=== PATIENT | male | born 1950 | race Caucasian/White ===

== ENCOUNTER 2016-05-17 01:46 | Emergency (ER) | payer MEDICARE, OTHER ==
--- NOTE | 2016-05-17 03:12 | ER Document Report ---
ED General - General Chief Complaint: Fall Stated Complaint: FALL,HEAD PAIN Mode of Arrival: Medic Information source: Patient, Relative - spouse Notes: Patient presents to emergency department for status post fall. Patient reports that he was trying to get out of bed got his foot caught in the sheet, fell and hit his head on the dresser. at his side reports no change in LOC. Reports patient acting like himself. He denies fever vomiting diarrhea. He denies dizziness, denies cp. Patient does have a past medical history of diabetes stroke and [place] stage III kidney disease. TRAVEL OUTSIDE OF THE [place] IN LAST 30 DAYS: No - HPI Onset: Just prior to arrival Onset/Duration: Sudden Quality of pain: No pain Associated symptoms: None Exacerbated by: Denies Relieved by: Denies Similar symptoms previously: No Recently seen / treated by doctor: No - Related Data Allergies/Adverse Reactions: No Known Allergies Allergy (Verified 06/21/13 00:40) Past Medical History - General Information source: Patient - Social History Smoking Status: Former Smoker Cigarette use (# per day): No Frequency of alcohol use: Rare Drug Abuse: None Lives with: Family Family History: None, Reviewed & Not Pertinent Patient has suicidal ideation: No Patient has homicidal ideation: No - Past Medical History Cardiac Medical History: Reports: Hx Heart Attack - 2008, Hx Hypercholesterolemia, Hx Hypertension Pulmonary Medical History: Reports: Hx COPD Denies: Hx Tuberculosis Neurological Medical History: Reports: Hx Cerebrovascular Accident - x2 May 2011 , july 2009 Endocrine Medical History: Reports: Hx Diabetes Mellitus Type 2 Renal/ Medical History: Reports: Hx End Stage Renal Disease. Denies: Hx Peritoneal Dialysis GI Medical History: Reports: Hx Gastroesophageal Reflux Disease Psychiatric Medical History: Denies: Hx Depression Past Surgical History: Reports: Hx Appendectomy, Hx Cardiac Surgery - stent. Denies: Hx Pacemaker - Immunizations Hx Diphtheria, Pertussis, Tetanus Vaccination: Yes - 2008 Review of Systems - Review of Systems Notes: Review HPI for review of systems., All other systems negative Physical Exam - Vital signs Vitals: Temp Pulse Resp BP Pulse Ox 98.6 F 102 H 16 139/83 H 94 05/17/16 01:58 05/17/16 01:58 05/17/16 01:58 05/17/16 01:58 05/17/16 01:58 - General General appearance: Other - sleeping aroused easily In distress: None - HEENT Head: Abrasions - left forehead with swelling. No: Ingram's sign, [place]'s eyes Eyes: Normal Conjunctiva: Normal Extraocular movements intact: Yes Pupils: PERRL Ears: Normal External canal: Normal Tympanic membrane: Normal Mouth/Lips: Normal Neck: Normal - denies pain. No: Lymphadenopathy - Respiratory Respiratory status: No respiratory distress Chest status: Nontender Breath sounds: Normal Chest palpation: Normal - Cardiovascular Rhythm: Regular Heart sounds: Normal auscultation Murmur: No - Abdominal Inspection: Normal Distension: No distension Bowel sounds: Normal Tenderness: Nontender Organomegaly: No organomegaly Adult front & back diagram: 1 - swelling, abrasion, no active bleeding - Back Back: Normal - Extremities General upper extremity: Normal ROM General lower extremity: Normal ROM - Neurological Neuro grossly intact: Yes Cognition: Normal Orientation: AAOx4 [place] Coma Scale Eye Opening: Spontaneous [place] Coma Scale Verbal: Oriented Mckayla Coma Scale Motor: Obeys Commands Mckayla Coma Scale Total: 15 Speech: Normal Motor strength normal: LUE, RUE, LLE, RLE Sensory: Normal - Psychological Associated symptoms: Normal affect, Normal mood - Skin Skin Temperature: Warm Skin Moisture: Dry Skin Color: Normal Course - Re-evaluation Re-evalutation: 05/17/[address] javier, updated on CT results, labs. updated on labs , BUN/CR, GFR., worsening from previous labs in 2014. reports they have an appointment with his pcp on Sunday regarding his stage III kidney disease. She was given a copy of the labs done here. Pt is sleeping but aroused easily, no distress. He reports he feels fine. Instructed on care of abrasion, swelling, instructed on head injury. Patient and verbalized understand to all instructions. - Vital Signs Vital signs: Temp Pulse Resp BP Pulse Ox 98.6 F 102 H 20 155/86 H 94 05/17/16 01:58 05/17/16 01:58 05/17/16 04:01 05/17/16 04:01 05/17/16 04:01 - Laboratory Result Diagrams: 05/17/16 03:30 05/17/16 03:30 Laboratory results interpreted by me: 05/17/16 05/17/16 03:30 03:30 WBC 12.1 H RBC 4.29 L Hgb 12.9 L Hct 37.7 L RDW 14.1 H Seg Neutrophils % 80.0 H Lymphocytes % 8.4 L Absolute Neutrophils 9.6 H Potassium 5.1 H Carbon Dioxide 19 L BUN 33 H Creatinine 2.85 H Est GFR ( Amer) 27 L Est GFR (Non-Af Amer) 22 L Glucose 232 H - Diagnostic Test Radiology reviewed: Image reviewed, Reports reviewed - IMPRESSION: CHRONIC DEGENERATIVE CHANGES. NO ACUTE FINDINGS. IMPRESSION: NORMAL BRAIN CT WITHOUT CONTRAST Discharge - Discharge Clinical Impression: Head injury, Elevated blood pressure reading, Abrasion Condition: Stable Disposition: HOME, SELF-CARE Instructions: Head Injury Precautions ([facility]), Abrasions of the Face ([facility]) Additional Instructions: *You have been treated for a head injury, abrasion *Keep the abrasion clean, Monitor the site for signs of infection such as increasing pain, redness, swelling, warmth *Ice packs to the swelling *Follow up with your primary care as scheduled Sunday *Return to ED for signs of infection, worsening condition,concerns, changes, needs, altered mental status, concerns Forms: Elevated Blood Pressure
[2016-05-17 03:41] LABS: ABSOLUTE EOSINOPHILS # (AUTO) 0.1 10^3/uL (0.0-0.6); ABSOLUTE MONOCYTES (AUTO) 1.2 10^3/uL (0.1-1.4); ABSOLUTE NEUT (AUTO) 9.6 10^3/uL (1.7-8.2); BASOPHILS % (AUTO) 0.3 % (0-2); EOSINOPHILS % (AUTO) 1.2 % (0-6); HEMATOCRIT 37.7 % (37.9-51.0); HEMOGLOBIN 12.9 g/dL (13.5-17.0); LYMPHOCYTES % (AUTO) 8.4 % (13-45); MEAN CORPUSCULAR HGB CONC 34.1 g/dL (32.0-36.0); MEAN CORPUSCULAR VOLUME 88 fl (80-97); MONOCYTES % (AUTO) 10.1 % (3-13); RED BLOOD COUNT 4.29 10^6/uL (4.35-5.55); RED CELL DISTRIBUTION WIDTH 14.1 % (11.5-14.0); WHITE BLOOD COUNT 12.1 10^3/uL (4.0-10.5)
[2016-05-17 03:59] LABS: ALANINE AMINOTRANSFERASE 38 U/L (21-72); ALBUMIN 3.6 g/dL (3.5-5.0); ALKALINE PHOSPHATASE 84 U/L (38-126); ANION GAP 15 (5-19); ASPARTATE AMINO TRANSFERASE 35 U/L (17-59); BILIRUBIN,TOTAL 0.5 mg/dL (0.2-1.3); BLOOD UREA NITROGEN 33 mg/dL (7-20); CALCIUM 9.5 mg/dL (8.4-10.2); CARBON DIOXIDE 19 mmol/L (22-30); CHLORIDE 105 mmol/L (98-107); CREATININE RESULT 2.85 mg/dL (0.52-1.25); GLUCOSE 232 mg/dL (75-110); POTASSIUM 5.1 mmol/L (3.6-5.0); SODIUM 139.3 mmol/L (137-145); TOTAL PROTEIN 6.5 g/dL (6.3-8.2)
[2016-05-17 05:18] VITALS: BP 145/83
== END 2016-05-17 05:18 | disposition home or self-care (01) ==
LOC: ER 01:46
DX: S09.90XA Unspecified injury of head, initial encounter (principal); S00.81XA Abrasion of other part of head, initial encounter; W06.XXXA Fall from bed, initial encounter; Y92.009 Unspecified place in unspecified non-institutional (private) residence as the place of occurrence of the external cause; E11.22 Type 2 diabetes mellitus with diabetic chronic kidney disease; I12.9 Hypertensive chronic kidney disease with stage 1 through stage 4 chronic kidney disease, or unspecified chronic kidney disease; N18.3 Chronic kidney disease, stage 3 (moderate); E78.00 Pure hypercholesterolemia, unspecified; J44.9 Chronic obstructive pulmonary disease, unspecified; I25.2 Old myocardial infarction; Z87.891 Personal history of nicotine dependence; Z86.73 Personal history of transient ischemic attack (TIA), and cerebral infarction without residual deficits
CPT/HCPCS: 36415; 70450; 72125; 80053; 85025; 99284

== ENCOUNTER 2016-05-18 20:39 | Inpatient (IN) | payer MEDICARE, OTHER ==
--- NOTE | 2016-05-18 21:36 | ER Document Report ---
ED Medical Screen (RME) - General Stated Complaint: FALL/HEAD PAIN Notes: patient is a 66 year old male who presents emergency department after being seen on the morning of May 17 after a fall. He was evaluated with a head CT and neck CT which did not reveal any acute bleed or fracture. They were discharged home and told to return to the emergency department if he is not doing well. Patient presents with and daughter stating that he has been lethargic, sleeping constantly, weak, and decreased appetite. Its been difficulty for him to perform his baseline functions which are getting in/out of bed, going to the bathroom. and daughter states that they arent sure if he is worse since sunday AM when he was evaluated here because he slept the whole time but was easily aroused and cooperative PMH: [place] 2008 with stent x1, CVA in 2011, TIA ', CKD stage 3, DM Patient is resting in wheel chair but responds to vocal stimuli. when awake he is alert, oriented to person, place, time and events. Denies headache but feels like he's "out of it". At this time, in comparison with neuro exam performed on 05/17, his MS is the same. I have greeted and performed a rapid initial assessment of this patient. A comprehensive ED assessment and evaluation of the patient, analysis of test results and completion of the medical decision making process will be conducted by additional ED providers. TRAVEL OUTSIDE OF THE [place] IN LAST 30 DAYS: No - Related Data Allergies/Adverse Reactions: No Known Allergies Allergy (Verified 06/21/13 00:40) Past Medical History - Past Medical History Cardiac Medical History: Reports: Hx Heart Attack - 2008, Hx Hypercholesterolemia, Hx Hypertension Pulmonary Medical History: Reports: Hx COPD Denies: Hx Tuberculosis Neurological Medical History: Reports: Hx Cerebrovascular Accident - x2 May 2011 , july 2009 Endocrine Medical History: Reports: Hx Diabetes Mellitus Type 2 Renal/ Medical History: Reports: Hx End Stage Renal Disease. Denies: Hx Peritoneal Dialysis GI Medical History: Reports: Hx Gastroesophageal Reflux Disease Psychiatric Medical History: Denies: Hx Depression Past Surgical History: Reports: Hx Appendectomy, Hx Cardiac Surgery - stent. Denies: Hx Pacemaker - Immunizations Hx Diphtheria, Pertussis, Tetanus Vaccination: Yes - 2008 Physical Exam - Vital signs Vitals: Temp Pulse Resp BP Pulse Ox 99.3 F 101 H 20 149/75 H 95 05/18/16 21:11 05/18/16 21:11 05/18/16 21:11 05/18/16 21:11 05/18/16 21:11 Course - Vital Signs Vital signs: Temp Pulse Resp BP Pulse Ox 99.3 F 101 H 20 149/75 H 95 05/18/16 21:11 05/18/16 21:11 05/18/16 21:11 05/18/16 21:11 05/18/16 21:11
[2016-05-18 22:14] LABS: ABSOLUTE BASOPHILS # (AUTO) 0.1 10^3/uL (0.0-0.2); ABSOLUTE EOSINOPHILS # (AUTO) 0.1 10^3/uL (0.0-0.6); ABSOLUTE MONOCYTES (AUTO) 1.5 10^3/uL (0.1-1.4); BASOPHILS % (AUTO) 0.5 % (0-2); HEMATOCRIT 38.4 % (37.9-51.0); HEMOGLOBIN 12.9 g/dL (13.5-17.0); HGB HCT DIFFERENCE 0.3; LYMPHOCYTES % (AUTO) 6.8 % (13-45); MEAN CORPUSCULAR HEMOGLOBIN 29.6 pg (27.0-33.4); MEAN CORPUSCULAR HGB CONC 33.7 g/dL (32.0-36.0); MEAN CORPUSCULAR VOLUME 88 fl (80-97); MONOCYTES % (AUTO) 10.1 % (3-13); RED BLOOD COUNT 4.36 10^6/uL (4.35-5.55); SEGMENTED NEUTROPHILS % (AUTO) 81.6 % (42-78); WHITE BLOOD COUNT 14.7 10^3/uL (4.0-10.5)
[2016-05-18 22:40] LABS: ALANINE AMINOTRANSFERASE 42 U/L (21-72); ALBUMIN 3.8 g/dL (3.5-5.0); ALKALINE PHOSPHATASE 88 U/L (38-126); ANION GAP 16 (5-19); ASPARTATE AMINO TRANSFERASE 35 U/L (17-59); BILIRUBIN,TOTAL 0.6 mg/dL (0.2-1.3); BLOOD UREA NITROGEN 43 mg/dL (7-20); CARBON DIOXIDE 19 mmol/L (22-30); CHLORIDE 102 mmol/L (98-107); CREATININE RESULT 3.66 mg/dL (0.52-1.25); GLUCOSE 237 mg/dL (75-110); POTASSIUM 4.8 mmol/L (3.6-5.0); SODIUM 136.5 mmol/L (137-145)
[2016-05-18] MEDS ORDERED: NORMAL SALINE 1000 ML 1,000 ML IV PRN (22:50)
[2016-05-18 23:05] LABS: APPEARANCE,URINE SLIGHTLY-CLOUDY; BILIRUBIN,URINE NEGATIVE (NEGATIVE); GLUCOSE, URINE >=500 mg/dL (NEGATIVE); KETONES,URINE NEGATIVE (NEGATIVE); LEUKOCYTE ESTERASE,URINE NEGATIVE (NEGATIVE); NITRITE,URINE NEGATIVE (NEGATIVE); PROTEIN,URINE >=500 mg/dL (NEGATIVE); URINE SPECIFIC GRAVITY 1.018; UROBILINOGEN,URINE NEGATIVE mg/dL (<2.0)
--- NOTE | 2016-05-18 23:08 | ER Document Report ---
ED General - General Chief Complaint: Closed Head Injury Stated Complaint: FALL/HEAD PAIN Time seen by provider: 23:07 Mode of Arrival: Ambulatory Information source: Patient, Relative TRAVEL OUTSIDE OF THE [place] IN LAST 30 DAYS: No - HPI Patient complains to provider of: decreased by mouth intake, generalized weakness Onset: Yesterday Onset/Duration: Gradual, Persistent Quality of pain: No pain Associated symptoms: Nausea Exacerbated by: Denies Relieved by: Denies Similar symptoms previously: No Recently seen / treated by doctor: Yes Notes: Patient is a 66-year-old male who is visiting from the [facility], who presents to the emergency room with family members reporting that he has not been acting himself today, he is tired, with generalized weakness, has not had much to eat or drink throughout the day today, patient was seen in this emergency room yesterday after trip and fall resulting in a head injury, he was evaluated and discharged, family since he is just not been acting himself since , patient denies any complaints at time of evaluation, he denies any loss of consciousness with the head injury, no vomiting, no vision changes, he states that he opened a [employer] to drink this morning but when he was about to drink a he just had no desire to, and the thoughts of any other food makes him nauseated , he denies a fever, denies any abdominal pain - Related Data Allergies/Adverse Reactions: No Known Allergies Allergy (Verified 06/21/13 00:40) Past Medical History - General Information source: Patient - Social History Smoking Status: Former Smoker Chew tobacco use (# tins/day): No Frequency of alcohol use: Rare Drug Abuse: None Family History: None, Reviewed & Not Pertinent Patient has suicidal ideation: No Patient has homicidal ideation: No - Past Medical History Cardiac Medical History: Reports: Hx Heart Attack - 2009, Hx Hypercholesterolemia, Hx Hypertension Pulmonary Medical History: Reports: Hx COPD Denies: Hx Tuberculosis Neurological Medical History: Reports: Hx Cerebrovascular Accident - x2 May 2011 , july 2009 Endocrine Medical History: Reports: Hx Diabetes Mellitus Type 2 Renal/ Medical History: Reports: Hx End Stage Renal Disease. Denies: Hx Peritoneal Dialysis GI Medical History: Reports: Hx Gastroesophageal Reflux Disease Psychiatric Medical History: Denies: Hx Depression Past Surgical History: Reports: Hx Appendectomy, Hx Cardiac Surgery - stent. Denies: Hx Pacemaker - Immunizations Hx Diphtheria, Pertussis, Tetanus Vaccination: Yes - 2008 Review of Systems - Review of Systems Constitutional: See HPI EENT: No symptoms reported Cardiovascular: No symptoms reported Respiratory: No symptoms reported Gastrointestinal: See HPI Genitourinary: No symptoms reported Male Genitourinary: No symptoms reported Musculoskeletal: No symptoms reported Skin: No symptoms reported Hematologic/Lymphatic: No symptoms reported Neurological/Psychological: No symptoms reported -: Yes All other systems reviewed and negative Physical Exam - Vital signs Vitals: Temp Pulse Resp BP Pulse Ox 99.3 F 101 H 20 149/75 H 95 05/18/16 21:11 05/18/16 21:11 05/18/16 21:11 05/18/16 21:11 05/18/16 21:11 Interpretation: Normal - General General appearance: Appears well, Alert - HEENT Head: Normocephalic, Abrasions - Abrasions with superficial laceration to the left forehead Eyes: Normal Pupils: PERRL - Respiratory Respiratory status: No respiratory distress Chest status: Nontender Breath sounds: Normal Chest palpation: Normal - Cardiovascular Rhythm: Regular Heart sounds: Normal auscultation Murmur: No - Abdominal Inspection: Obese Distension: Distended Bowel sounds: Normal Tenderness: Nontender Organomegaly: No organomegaly - Back Back: Normal, Nontender - Extremities General upper extremity: Normal inspection, Nontender, Normal color, Normal ROM , Normal temperature General lower extremity: Normal inspection, Nontender, Normal color, Normal ROM , Normal temperature, Normal weight bearing. No: Carole's sign - Neurological Neuro grossly intact: Yes Cognition: Normal Orientation: AAOx4 [place] Coma Scale Eye Opening: Spontaneous [place] Coma Scale Verbal: Oriented Mckayla Coma Scale Motor: Obeys Commands [place] Coma Scale Total: 15 Speech: Normal Motor strength normal: LUE, RUE, LLE, RLE Sensory: Normal - Psychological Associated symptoms: Normal affect, Normal mood - Skin Skin Temperature: Warm Skin Moisture: Dry Skin Color: Normal Course - Re-evaluation Re-evalutation: 05/19/16 04:29 Patient with worsening renal function, symptoms consistent with dehydration, discussed with the hospitalist who agrees to admit as observation for further evaluation and treatment - Vital Signs Vital signs: Temp Pulse Resp BP Pulse Ox 99.3 F 101 H 20 149/75 H 95 05/18/16 21:11 05/18/16 21:11 05/18/16 21:11 05/18/16 21:11 05/18/16 21:11 - Laboratory Result Diagrams: 05/18/16 21:40 05/18/16 21:40 Laboratory results interpreted by me: 05/18/16 05/18/16 05/18/16 21:40 21:40 22:50 WBC 14.7 H Hgb 12.9 L Seg Neutrophils % 81.6 H Lymphocytes % 6.8 L Absolute Neutrophils 12.0 H Absolute Monocytes 1.5 H Sodium 136.5 L Carbon Dioxide 19 L BUN 43 H Creatinine 3.66 H Est GFR ( Amer) 20 L Est GFR (Non-Af Amer) 17 L Glucose 237 H Urine Protein >=500 H Urine Glucose (UA) >=500 H Urine Blood SMALL H Urine Ascorbic Acid 40 H - Transfer of Care Care transferred to following provider: Dr. Arroyo Discharge - Discharge Clinical Impression: Acute on chronic renal insufficiency, Dehydration Condition: Fair Disposition: ADMITTED OBSERVATION Admitting Provider: Hospitalist Unit Admitted: Telemetry
[2016-05-18 23:31] LABS: VENOUS BLOOD HCO3 21.2 mmol/L (20-32); VENOUS BLOOD PCO2 39.7 mmHg (35-63); VENOUS BLOOD PH 7.35 (7.30-7.42)
[2016-05-19] MEDS ORDERED: NORMAL SALINE 1000 ML 1,000 ML IV PRN (02:14)
[2016-05-19] MEDS ORDERED: DEXTROSE 50%-WATER 25 GM/50 ML DISP.SYRIN IV PRN ×2 (05:55)
[2016-05-19] MEDS ORDERED: GLUCAGON,HUMAN RECOMB 1 MG INJ IM PRN (05:55)
[2016-05-19] MEDS ORDERED: DEXTROSE 40% GEL 15 GM TUBE PO PRN ×2 (05:55)
[2016-05-19] MEDS ORDERED: IPRATROPIUM/ALBUTEROL 0.5-2.5 MG/3 ML AMPUL NEB PRN (05:57)
[2016-05-19] MEDS ORDERED: ACETAMINOPHEN 325 MG TABLET PO PRN (05:57)
--- NOTE | 2016-05-19 06:11 | PDOC H&P ---
History of Present Illness Admission Date/PCP: 05/19/16 03:44 Primary care provider in [facility] Dr. Bishop Palmer Rodgers Patient complains of: Not acting himself History of Present Illness: DENNIS SHAW is a 66 year old obese male with underlying insulin- dependent diabetes mellitus, stage III chronic kidney disease, hypertension, hyperlipidemia, COPD, mild reflux disease, known coronary artery disease, having undergone stent implant in 2008, and status post stroke 2, 2009 and 2011 , which has left him with mild right lower extremity paresthesias, who presents to the emergency room for evaluation of above complaint. Patient has been discussed with emergency room physician who evaluated the patient. Patient formerly lived in the area. Currently resides in [place], and came down to finalize closing of his home in the area. Fell and struck his head on the eighth. Was seen in the emergency room and discharged. Since that time he "has not been acting himself," per family report. More fatigued, with generalized weakness, along with primarily a poor appetite, for both liquids and solids. Attempting to eat any food, solids or liquids, makes him nauseated. However, no other specific complaints, including headache, chest or abdominal pain, nausea vomiting, fever chills, diarrhea or dysuria. According to emergency room physician, family commented that after he had received approximately a liter so of IV fluid this evening, he seemed "more like himself." Family have gone home. He is currently resting quietly, without specific complaint.. Laboratory results are listed in [employer] and are reviewed. X-ray summary results are listed below, with full report(s) reviewed. . EKG pending, as are cardiac enzymes. Social history/personal habits: . 2 children. Retired. Lives with . Former smoker. Rare alcohol. No use of illicit drugs. Allergies/adverse reactions NKDA. Home medications Home medications initially autopopulated into [employer] may not accurately reflect patient's true medications, dosages, and/or frequencies. Unfortunately, patient uncertain of medications/dosages/frequencies. Order has been entered for staff to contact family, outpatient physician, and/or pharmacy to more accurately determine medications, dosages, and frequencies and to contact physician when that has been accomplished. REVIEW OF SYSTEMS: Constitutional: No fever or chills. Eyes: Wears glasses. ENT: No swallowing problems or complaints. Partial hearing loss. Pulmonary: No current complaints. Cardiovascular: No current complaints, including chest pain. Gastrointestinal: No current complaints, including nausea or vomiting. Skin: No current complaints, including rashes. Hematologic: No unusual easy bruising or bleeding. Neurologic: Mild Chronic right lower extremity paresthesias, since 2 prior strokes. Musculoskeletal: No current complaints, including painful joints. Psychiatric: See History and Present Illness. Endocrine: No current complaints, including polyuria. Genitourinary: No current complaints, including dysuria. PHYSICAL EXAMINATION: 6 feet tall. 127.2 kg. BMI 38 kg/m. Pulse 94 and regular. 97% saturation on room air. Respirations are 16 and unlabored. Blood pressure 163/78. Temperature 99.3. Obese slightly disheveled otherwise well-nourished well-developed male appearing approximately his stated age. Pleasant awake alert and cooperative. No obvious distress other than perhaps mildly anxious. Skin is warm and dry. No grossly obvious evidence of rash in areas of skin examined. No subcutaneous nodules palpated. ENT: Hearing grossly normal Mildly hard of hearing to normal conversation. Tongue midline on protrusion pink and slightly tacky. No Ingram sign. Somewhat poor dentition involving his upper incisors. Eyes: No scleral icterus. Pupils equal and reactive to light at 4 mm. Stoy conjunctivae. No raccoon eyes. Neck is supple and nontender to gentle active range of motion and palpation. Midline trachea. No palpable thyroid nodule mass enlargement or tenderness. Lymphatic: No palpable cervical or clavicular nodes. Neck and lymphatic exams limited by patient body habitus. Psychiatric: Reasonable insight into acute and chronic medical issues. Oriented to time location and why here. Slightly odd affect at times. Lungs: Auscultation reveals clear and equal breath sounds bilaterally. No use of accessory respiratory muscles. Cardiovascular: Heart regular rate and rhythm, without gallop murmur or rub. No carotid or abdominal aortic bruits. No ankle or pedal edema. palpable dorsalis pedis pulses. Abdomen: soft, obese, nontender with positive bowel sounds. Unable to adequately evaluate abdomen for masses or organomegaly due to body habitus. Extremities: Feet are warm and dry. No calf tenderness to compression. No grossly obvious visual evidence of calf swelling. Gentle manipulation of upper and lower extremities fails to reveal any obvious evidence of injury or instability to involved major joints. Neurologic: Cranial Nerves II through XII are grossly intact. Light touch intact at face, upper and lower extremities, with exception of chronic right lower extremity decreased light touch sensation since 2 prior strokes, per patient. Motor function of major muscle groups upper and lower extremities 5 over 5 and symmetric. Patellar reflexes absent. Absent Babinski. Past Medical History Cardiac Medical History: Reports: Myocardial Infarction - 2009, Hyperlipidema, Hypertension Denies: DVT, Pulmonary Embolism Pulmonary Medical History: Reports: Chronic Obstructive Pulmonary Disease (COPD) Denies: Tuberculosis Neurological Medical History: Reports: Ischemic CVA - 2009, 2012; chronic right lower extremity paresthesia. Denies: Hemorrhagic CVA, Seizures Endocrine Medical History: Reports: Diabetes Mellitus Type 1 Denies: Hyperthyroidism, Hypothyroidism Renal/ Medical History: Reports: Chronic Kidney Disease GI Medical History: Reports: Gastroesophageal Reflux Disease Denies: Cirrhosis, Hepatitis, Peptic Ulcer Disease Musculoskeltal Medical History: Denies: Arthritis Skin Medical History: Reports: None Denies: Eczema, Psoriasis Psychiatric Medical History: Denies: Alcohol Dependency, Depression, General Anxiety Disorder, Substance Abuse, Tobacco Dependency Hematology: Denies: Other Infectious Medical History: Denies: Hepatitis B, Hepatitis C Past Surgical History Past Surgical History: Reports: Appendectomy, Coronary Stent - 2008 Social History Information Source: Patient, Emergency Med Personnel, [facility] Records Lives with: Spouse/Significant other Smoking Status: Former Smoker Frequency of Alcohol Use: Rare Hx Recreational Drug Use: No Hx Prescription Drug Abuse: No - Advance Directive Resuscitation Status: Full Code Surrogate healthcare decision maker:: Family History Family History: None, Reviewed & Not Pertinent Parental Family History Reviewed: Yes Children Family History Reviewed: Yes Sibling(s) Family History Reviewed.: Yes Medication/Allergy Home Medications: Amitriptyline HCl [Elavil 50 mg Tablet] 100 mg PO QHS 05/19/16 Amlodipine Besylate [Norvasc 5 mg Tablet] 5 mg PO QAM 05/19/16 Clopidogrel Bisulfate [Plavix 75 mg Tablet] 75 mg PO QAM 05/19/16 Exenatide Microspheres [Bydureon Pen] 2 mg SQ WE 05/19/16 Gabapentin [Neurontin 100 mg Capsule] 100 mg PO BID@0800,1200 05/19/16 Glimepiride [Amaryl 4 mg Tablet] 4 mg PO Q12 05/19/16 Insulin Aspart [Novolog Flexpen] 10 units SQ BID 05/19/16 Insulin Glargine,Hum.rec.anlog [Lantus Solostar] 50 units SQ BID 05/19/16 Pantoprazole Sodium [Protonix] 40 mg PO ACSUPPER 05/19/16 RX: Losartan Potassium [Cozaar 100 mg Tablet] 100 mg PO DAILY 05/19/16 Simvastatin [Zocor 80 mg Tablet] 80 mg PO QHS 05/19/16 Tamsulosin HCl [Flomax 0.4 mg Cap.sr] 0.4 mg PO PCSUPPER 05/19/16 Allergies/Adverse Reactions: No Known Allergies Allergy (Verified 06/21/13 00:40) Physical Exam Vital Signs: Temp Pulse Resp BP Pulse Ox 98.8 F 95 22 H 163/78 H 97 05/19/16 05:12 05/19/16 05:12 05/19/16 05:34 05/19/16 05:34 05/19/16 05:34 Intake & Output 05/18/16 05/19/16 05/20/16 00:59 00:59 00:59 Weight 127.2 kg Results Impressions: Head CT 05/18/16 22:08 IMPRESSION: MILD CHRONIC CHANGES OF ATROPHY AND MICROVASCULAR ISCHEMIA. NO ACUTE PROCESS. Assessment & Plan - Diagnosis (1) Acute on chronic renal insufficiency Is this a current diagnosis for this admission?: YesPlan: Suspect prerenal, since patient admittedly has been eating or drinking little over the past 36 hours or so. IV fluids. Follow-up chemistry. I have strongly encouraged patient not to get out of bed without notifying staff , to avoid a fall with injury. Knee high SCDs for DVT prophylaxis, along with subcutaneous heparin. Impression and plans were discussed with patient, who concurs. Time spent in evaluation and management of patient: 58 minutes. (2) Decreased appetite Is this a current diagnosis for this admission?: YesPlan: Patient states he feels his appetite is returning gradually and is hungry at the present time. (3) Head injury Qualifiers: Encounter type: initial encounter Qualified Code(s): S09.90XA - Unspecified injury of head, initial encounter Is this a current diagnosis for this admission?: YesPlan: Status post fall on the eighth of this month. CT of brain without contrast not overly remarkable. Report noted. (4) Leukocytosis Qualifiers: Leukocytosis type: unspecified Qualified Code(s): D72.829 - Elevated white blood cell count, unspecified Is this a current diagnosis for this admission?: YesPlan: No obvious source of infection. Will repeat CBC with differential. (5) Diabetes mellitus type 1 Qualifiers: Diabetes mellitus complication status: without complication Qualified Code(s): E10.9 - Type 1 diabetes mellitus without complications Is this a current diagnosis for this admission?: YesPlan: Diabetic cardiac prerenal diet. Accu-Cheks with appropriate sliding scale coverage.Resume home medications as appropriate once these have been determined and reviewed. (6) HTN (hypertension) Qualifiers: Hypertension type: essential hypertension Qualified Code(s): I10 - Essential (primary) hypertension Is this a current diagnosis for this admission?: YesPlan: Resume home medications as appropriate once these have been determined and reviewed.
[2016-05-19 06:19] LABS: ADD ON TESTING BLD IN LAB ACKNOWLEDGE
[2016-05-19 06:30] LABS: MAGNESIUM 2.1 mg/dL (1.6-2.3)
[2016-05-19 06:32] LABS: ALCOHOL < 10 mg/dL (NONE DETECTED)
[2016-05-19 06:56] LABS: ABSOLUTE EOSINOPHILS # (AUTO) 0.2 10^3/uL (0.0-0.6); ABSOLUTE LYMPHOCYTES (AUTO) 0.8 10^3/uL (0.5-4.7); ABSOLUTE MONOCYTES (AUTO) 1.2 10^3/uL (0.1-1.4); ABSOLUTE NEUT (AUTO) 9.7 10^3/uL (1.7-8.2); BASOPHILS % (AUTO) 0.1 % (0-2); EOSINOPHILS % (AUTO) 1.3 % (0-6); HEMATOCRIT 36.2 % (37.9-51.0); HEMOGLOBIN 12.4 g/dL (13.5-17.0); LYMPHOCYTES % (AUTO) 6.9 % (13-45); MEAN CORPUSCULAR HEMOGLOBIN 30.1 pg (27.0-33.4); MEAN CORPUSCULAR HGB CONC 34.3 g/dL (32.0-36.0); MEAN CORPUSCULAR VOLUME 88 fl (80-97); MONOCYTES % (AUTO) 10.1 % (3-13); RED BLOOD COUNT 4.13 10^6/uL (4.35-5.55); SEGMENTED NEUTROPHILS % (AUTO) 81.6 % (42-78); WHITE BLOOD COUNT 11.9 10^3/uL (4.0-10.5)
[2016-05-19 07:12] LABS: ANION GAP 11 (5-19); BLOOD UREA NITROGEN 43 mg/dL (7-20); CALCIUM 8.6 mg/dL (8.4-10.2); CARBON DIOXIDE 20 mmol/L (22-30); CHLORIDE 106 mmol/L (98-107); CREATINE KINASE 430 U/L (55-170); CREATININE RESULT 3.59 mg/dL (0.52-1.25); GLUCOSE 215 mg/dL (75-110); POTASSIUM 4.4 mmol/L (3.6-5.0); SODIUM 136.7 mmol/L (137-145)
[2016-05-19 07:23] LABS: CREATINE KINASE MB 2.84 ng/mL (<4.55)
[2016-05-19 07:25] LABS: TROPONIN I 0.612 ng/mL
[2016-05-19 09:11] LABS: URINE BARBITURATES SCREEN NEGATIVE; URINE METHADONE SCREEN NEGATIVE; URINE OPIATES LOW NEGATIVE; URINE PHENCYCLIDINE SCREEN NEGATIVE
[2016-05-19] MEDS: NORMAL SALINE 1000 ML 1,000 ML IV PRN ×2 (11:03→18:13)
[2016-05-19] MEDS: ASPIRIN 81 MG TABLET, ENT COATED PO SCH (11:04)
[2016-05-19] MEDS: METOPROLOL TARTRATE 100 MG TABLET PO SCH ×2 (11:05→22:01)
[2016-05-19] MEDS: HEPARIN SOD (PORCINE) 5,000 UNIT/ML 1 ML SYRINGE SUBCUT SCH ×2 (11:08→22:02)
[2016-05-19] MEDS: INSULIN LISPRO 100 UNIT/ML 3 ML VIAL SUBCUT PRN ×2 (11:08→17:59)
[2016-05-19] MEDS: CLOPIDOGREL BISULFATE 75 MG TABLET PO SCH (11:09)
[2016-05-19] MEDS: DOCUSATE SODIUM 100 MG CAPSULE PO SCH ×2 (11:10→18:12)
[2016-05-19 11:50] LABS: CREATINE KINASE MB 2.71 ng/mL (<4.55)
[2016-05-19 11:56] LABS: TROPONIN I 0.53 ng/mL
[2016-05-19 16:45] LABS: CREATINE KINASE MB 2.93 ng/mL (<4.55); TROPONIN I 0.882 ng/mL
--- NOTE | 2016-05-19 19:34 | EKG REPORT ---
SEVERITY:- ABNORMAL ECG - SINUS RHYTHM ABNORMAL T, CONSIDER ISCHEMIA, LATERAL LEADS : Confirmed by: Lizette Wadsworth 19-May-2016 19:34:13
--- NOTE | 2016-05-19 19:36 | EKG REPORT ---
SEVERITY:- ABNORMAL ECG - A-FLUTTER/FIBRILLATION VS SINUS WITH BASELINE ARTIFACTS, REC REPEAT EKG ABNRM R PROG, CONSIDER ASMI OR LEAD PLACEMENT ABNORMAL T, CONSIDER ISCHEMIA, LATERAL LEADS : Confirmed by: Lizette Wadsworth 19-May-2016 19:35:09
[2016-05-19 20:17] LABS: CREATINE KINASE MB 2.96 ng/mL (<4.55); TROPONIN I 0.953 ng/mL
[2016-05-20 00:14] LABS: CREATINE KINASE MB 2.8 ng/mL (<4.55); TROPONIN I 0.837 ng/mL
--- NOTE | 2016-05-20 00:48 | CONSULTATION REPORT E ---
Consultation Report NAME: DENNIS SHAW : 1950 AGE: 66Y DATE: 05/19/2016 333 A TO: TOMA KAY M.D. FROM: ANGE BAUTISTA M.D. Requesting Physician REASON FOR CONSULTATION: Elevated troponin I. HISTORY OF PRESENT ILLNESS: The patient is a 66-year-old obese male with history of insulin-dependent diabetes mellitus type 2, with stage-3 chronic kidney disease as baseline, hypertension, hyperlipidemia, COPD, GERD, no history of coronary artery disease, history of NH and history of stent in unknown vessel and history of CVAs x2, which has left him with a gait imbalance. He was seen on the emergency room on 05/17/2016 after the patient's leg got caught on the sheets of his bed and he fell down and hit his head and had a head injury. The workup was negative including a CT scan of the head and the patient was sent home. Since then the patient has not been acting himself as per the . He feels more fatigued, has more generalized weakness along with poor appetite and drinking less amount of fluids. He feels very nauseated eating any food or drinking water. He denies any chest pain or discomfort. There are no palpitations. There is no PND or orthopnea. There is no increased leg edema. The patient has chronic kidney disease stage 3, now the GFR is reduced further and the GFR shows that the patient is now chronic kidney stage 4, and some of his symptoms of nausea and decreased appetite may be related to this [id number] renal failure. The patient has no prior history of arrhythmia. There is one EKG which is read as atrial flutter with a controlled ventricular response but I think it is sinus rhythm with artifact; I do not believe it is atrial flutter. The patient denies any chest pain or discomfort or any sensation in the chest which could be conceived as possibly angina or anginal equivalent but his troponin I is trending up. He denies any palpitations or fast rapid heartbeat. This is confirmed by the who gives most of the history since the patient is very hard of hearing. The patient after hydration is now back to his usual self although his gait is still unsteady as per the . The patient formerly lived in this area but now has resettled in [place] and has come back to sell his house at which time all these things happened. PAST MEDICAL HISTORY: Positive for history of coronary artery disease, history of NH, history of stent placement on unknown vessel. The thinks it is the arteries in the back of heart, most likely right coronary artery. Since then he has not had any anginal symptoms. He also has a hypertension. He has a history of diabetes mellitus type 2 insulin-dependent. He also has chronic kidney disease stage 3 which has now progressed to stage 4. There is no hypothyroidism or hyperthyroidism. He has a past history of CVAs x2, which as per the said that the patient had confused and had gait problems, and he still has problems with his gait and has falls off and on. There is no history of anxiety or depression. He has a history of GERD. He has no collagen vascular disease. He has no asthma or COPD and there is no sleep apnea. ALLERGIES: No known allergies. FAMILY HISTORY: Positive for coronary artery disease and hypertension. SOCIAL HISTORY: The patient is a former smoker and quit smoking a long time ago but he had a heart attack in 2007. CODE STATUS: The patient is FULL CODE. The patient's is his surrogate healthcare decision maker. MEDICATIONS: 1. Tylenol 650 mg p.o. q.4 h. p.r.n. 2. Aspirin 81 mg p.o. daily. 3. Plavix 75 mg p.o. daily. 4. Glucose 40% gel, 15 gm p.o. p.r.n. and 30 gm p.o. p.r.n. hypoglycemia. 5. Hypoglycemic precautions with dextrose 50% 12.5 mg IV and 25 gm IV p.r.n. hypoglycemia. 6. Colace 100 mg p.o. b.i.d. 7. Glucagon 1 mg IM p.r.n. 8. Heparin 5000 units subcutaneously q.12 h. 9. Normal saline intravenous at 150 mL/hr. 10. Accu-Cheks before meals t.i.d. and at bedtime with sliding scale insulin coverage. 11. Ipratropium/albuterol sulfate 3 mL nebulizer treatment q.4 h. p.r.n. 12. Metoprolol tartrate 100 mg p.o. q.12 h. At home along with the current medications, he was also on gabapentin 100 mg p.o. daily and also he was on amlodipine 5 mg tablet daily. He is also on amitriptyline 100 mg p.o. at bedtime and Flomax at home, 0.4 mg daily at night. REVIEW OF SYSTEMS: CARDIOVASCULAR: Denies any fever, chills or rigors. Had recent head injury and some recent altered mental status in spite of negative [employer] workup. Questionable whether this was a TIA or a CVA. HEENT: Eyes: No history of amblyopia or diplopia. No history of amaurosis fugax. Ears: The patient is hard of hearing. There are no recurrent ear infections. There is no vertigo. Nose: No history of hay fever, no history of nosebleeds. No history of nasal polyps. Mouth: No history of altered taste sensation, no history of ulcers in the mouth, no bleeding from the gums. Throat: No odynophagia or dysphagia. No recurrent sore throats. SKIN: No pruritus. No psoriasis. No yellowish discoloration of the skin. NECK: No history of goiter. No history of neck pain or swelling in the neck. LUNGS: No history of wheezing. No history of cough or sputum production. No history of asthma or COPD. No history of sleep apnea. No history of pulmonary embolism. No history of DVT. No history of pleuritic chest pain. No history of hemoptysis. CARDIAC: No prior history of congestive heart failure. No prior history of atrial fibrillation or flutter. No history of ventricular arrhythmias. No history of syncope. The patient denies any PND or orthopnea this admission or prior. There are no palpitations. The patient has a history of coronary artery disease, history of NH in 2007 and possibly had a stent to the right coronary artery. Since then the patient states and the corroborates that the patient has had not any anginal symptoms. There is no history of congestive heart failure. There is no syncope. GASTROINTESTINAL: History of GERD present. No history of fatty food intolerance. No history of abdominal pain. No history of altered bowel movements. No history of hematemesis or melena or hematochezia. RENAL: History of chronic kidney disease stage 3, now with the patient not eating well and drinking well has progressed to stage 4. There are no symptoms of UTI and no symptoms of hematuria, polyuria or dysuria. No symptoms of enlarged prostate. Denies arthritis or collagen vascular disease. ENDOCRINE: History of diabetes mellitus with diabetic neuropathy and also diabetic nephropathy. No history of retinopathy. No history of polydipsia or polyuria. No history of heat or cold intolerance or history of thyroid disease. CENTRAL NERVOUS SYSTEM: Past history of CVA x2 which has left him with a gait imbalance. The patient states the symptoms of CVA both times with confusion and disorientation and the patient not acting like himself, as he had these symptoms presently. There is no history of sleep apnea. No history of headaches, migraines or seizures. PSYCHIATRIC: No history of anxiety or depression. No history of suicidal ideation. VASCULAR: No history of calf or buttock claudication. No history of DVT. HEMATOLOGICAL: No history of anemia. No history of bleeding diathesis and no history of clotting disorders. The rest of the review of systems is positive for history of hypertension, which is well controlled as per the . METABOLIC: The patient has a history of moderate obesity. He also has a history of enlarged prostate and symptoms controlled with the current medication. He also has hyperlipidemia. PAST SURGICAL HISTORY: Positive for cardiac catheterization and stent placement. No other surgeries done. PHYSICAL EXAMINATION: GENERAL: Patient is moderately obese in no acute distress. The patient denies any chest pain or discomfort. There is no PND or orthopnea. VITAL SIGNS: The patient is afebrile with a temperature of 98.8 degrees Fahrenheit. Pulse is 97 beats per minute. His blood pressure is elevated at 160/110, respirations are 20 per minute, and 02 sats are 97% on room air. HEENT: Head is atraumatic, normocephalic. Eyes: Pupils are equal, round, regular, reactive to light and accommodation. Extraocular movements are normal. There is no conjunctival pallor. There is no scleral icterus. Ears: Tympanic membranes are intact. External auditory canals are clear. Nose: There is no deviated nasal septum. There is no inflammation of the nasal mucous membranes. Mouth: Mucous membranes of the mouth are moist. Tongue is moist. There are no ulcers. There is no bleeding from the gums. Throat: There is no redness of the oropharynx. There is no exudate. SKIN: There are no skin rashes. There is no petechia or ecchymosis. NECK: Supple. There is no JVD. Carotids are equal. There is no bruit. There is no goiter. There is no lymphadenopathy. Trachea is central. LUNGS: Clear to auscultation and percussion. HEART: S1 and S2 are heard. There is no S3 gallop. There is no S4 gallop. There is a systolic murmur in the left sternal border and the apex. There is no rub. ABDOMEN: Soft, obese, nontender. There is no hepatosplenomegaly. Bowel sounds are well heard. EXTREMITIES: Femorals are diminished. There are no femoral bruits. Leg pulses are diminished. There is no pedal edema. There is no DVT or cellulitis. There is no cyanosis or clubbing. There is no calf tenderness. CENTRAL NERVOUS SYSTEM: The patient at present seems to be conscious and oriented x3 with no focal deficits except he does have some weakness he says in his lower extremities, but the strength seems to be symmetrical and equal on both sides upper and lower extremities. PSYCHIATRIC: The patient's judgment and insight are intact. His affect is normal. DIAGNOSTIC TEST RESULTS: The patient's head CT shows that the ventricles are prominent. There is no hemorrhage, no evidence of an acute infarction. The patient's initial EKG read by the computer as atrial flutter with ventricular response of 96 but looks more like this is an artifact because there are definite P-waves seen in other leads. There is T-wave inversion suggestive of lateral wall ischemia. There are no old EKGs available. His EKG done today shows sinus rhythm, abnormal T-waves, consider lateral wall ischemia. His white count is 11,900, hemoglobin is 12.4, hematocrit is 26.2, and platelet count is 179,000. The patient's troponin I initially was 0.612 and came down to 0.530 and subsequently went up to 0.882 and then 0.953. Although CPK is elevated, CPK-MBS are negative. The patient's sodium is 136.7, potassium 4.4, chloride 106, CO2 20, BUN 43, creatinine 3.59, GFR is reduced at 17 mL, which is chronic kidney disease stage 4 and, hence, progressed from stage 3. His glucose is 215, his calcium is 8.6. His TSH is 1.05. The patient's serum alcohol is less than 10. His urine marijuana, urine cocaine, urine benzodiazepines, urine amphetamine, urine phencyclidine, urine barbiturates, urine methadone, and urine opiate screens are all negative in the urine. IMPRESSION: 1. Pxcic-nw-rpzuhbi kidney disease most likely secondary to the patient's inadequate p.o. intake of food and fluids. 2. Confusion and altered mental status secondary to renal failure versus secondary to recurrence of transient ischemic attack, now seems to have resolved. 3. Elevated troponin I most likely secondary to acute renal failure and possibly TIA. No definite evidence of non-ST elevation NH but the patient does have an abnormal T inversion in lateral leads. No old EKGs available at present. 4. Doubt atrial flutter, most likely artifact. 5. Coronary artery disease, history of myocardial infarction, history of stent, no anginal symptoms. 6. Hypertension, accelerated, uncontrolled. 7. Diabetes mellitus type 2, insulin-requiring with neuropathy and chronic kidney disease. 8. Chronic kidney disease at present stage 4, baseline is stage 3. 9. History of cerebrovascular accident x2 with gait imbalance. 10. History of fall and head injury on 05/17/2016. 11. Hyperlipidemia. 12. History of enlarged prostate. 13. Gastroesophageal reflux disease. RECOMMENDATIONS: Would recommend trending the troponin I and repeating EKG. Will try to get an old EKG from earlier admission here. Also will restart the patient's amlodipine at 5 mg p.o. q.12 h. and also add isosorbide mononitrate at 30 mg p.o. daily. Will check an echocardiogram later. Will follow with you. Discussed with the patient and patient's . NOTE: Fifty minutes spent on this patient including trying to review his earlier admission to the ER and also discussions after reviewing the patient's medications, ordering new medications, and also discussions with the hospitalist taking care of the patient and also the nurse taking care of the patient. Note: More than 50% of the time was spent on direct patient care. Thanking you. DICTATING PHYSICIAN: TOMA KAY M.D. [id number] PHY#: [id number] ID: [id number] JOB#: [id number] ACCT: [id number] cc:TOMA KAY M.D. >
[2016-05-20 05:33] LABS: HEMATOCRIT 36.6 % (37.9-51.0); HEMOGLOBIN 12.3 g/dL (13.5-17.0); HGB HCT DIFFERENCE 0.3; MEAN CORPUSCULAR HGB CONC 33.7 g/dL (32.0-36.0); MEAN CORPUSCULAR VOLUME 89 fl (80-97); RED BLOOD COUNT 4.11 10^6/uL (4.35-5.55); RED CELL DISTRIBUTION WIDTH 14.2 % (11.5-14.0); WHITE BLOOD COUNT 10.5 10^3/uL (4.0-10.5)
[2016-05-20 05:47] LABS: ANION GAP 12 (5-19); BLOOD UREA NITROGEN 46 mg/dL (7-20); CALCIUM 8.6 mg/dL (8.4-10.2); CARBON DIOXIDE 18 mmol/L (22-30); CHLORIDE 109 mmol/L (98-107); GLUCOSE 151 mg/dL (75-110); POTASSIUM 4.9 mmol/L (3.6-5.0); SODIUM 139.1 mmol/L (137-145)
[2016-05-20] MEDS: HEPARIN SOD (PORCINE) 5,000 UNIT/ML 1 ML SYRINGE SUBCUT SCH ×2 (09:43→22:41)
[2016-05-20] MEDS: DOCUSATE SODIUM 100 MG CAPSULE PO SCH ×2 (09:43→18:17)
[2016-05-20] MEDS: ASPIRIN 81 MG TABLET, ENT COATED PO SCH (09:43)
[2016-05-20] MEDS: CLOPIDOGREL BISULFATE 75 MG TABLET PO SCH (09:43)
[2016-05-20] MEDS: METOPROLOL TARTRATE 100 MG TABLET PO SCH ×2 (09:43→22:35)
--- NOTE | 2016-05-20 10:50 | EKG REPORT ---
SEVERITY:- ABNORMAL ECG - SINUS RHYTHM CONSIDER ANTEROSEPTAL INFARCT NONSPECIFIC T ABNORMALITIES, LATERAL LEADS : Confirmed by: Lizette Wadsworth 20-May-2016 10:48:44
--- NOTE | 2016-05-20 10:50 | EKG REPORT ---
SEVERITY:- ABNORMAL ECG - SINUS RHYTHM NONSPECIFIC T ABNORMALITIES, LATERAL LEADS : Confirmed by: Lizette Wadsworth 20-May-2016 10:48:28
--- NOTE | 2016-05-20 14:15 | PDOC PROGRESS REPORT ---
Subjective Progress Note for:: 05/20/16 Subjective:: Patient is feeling much better. Patient has no chest pain at all. No nausea or vomiting. No chills or fever. No diarrhea. Denies feeling dizzy. No headache, or double visions. No history of focal weakness, slurring of speech, or swallowing difficulty that resolve spontaneously. Physical Exam Vital Signs: Temp Pulse Resp BP Pulse Ox 99.0 F 84 22 H 161/77 H 93 05/20/16 11:51 05/20/16 11:51 05/20/16 11:51 05/20/16 11:51 05/20/16 11:51 Intake & Output 05/19/16 05/20/16 05/21/16 06:59 06:59 07:59 Intake Total 1443 Balance 1443 Weight 121.4 kg General appearance: PRESENT: no acute distress, cooperative Head exam: PRESENT: normocephalic, other - Ecchymosis noted on the forehead left side Eye exam: PRESENT: EOMI Mouth exam: PRESENT: moist, neck supple Neck exam: ABSENT: JVD Respiratory exam: PRESENT: clear to auscultation audie Cardiovascular exam: PRESENT: RRR. ABSENT: gallop GI/Abdominal exam: PRESENT: normal bowel sounds, soft. ABSENT: distended - Obese, tenderness Extremities exam: ABSENT: pedal edema Neurological exam: PRESENT: alert, awake, oriented to situation Skin exam: PRESENT: dry, warm. ABSENT: cyanosis Results Laboratory Results: 05/20/16 04:49 05/20/16 04:49 05/20/16 05/20/16 04:49 04:49 WBC 10.5 RBC 4.11 L Hgb 12.3 L Hct 36.6 L MCV 89 MCH 30.0 MCHC 33.7 RDW 14.2 H Plt Count 169 Sodium 139.1 Potassium 4.9 Chloride 109 H Carbon Dioxide 18 L Anion Gap 12 BUN 46 H Creatinine 3.40 H Est GFR ( Amer) 22 L Est GFR (Non-Af Amer) 18 L Glucose 151 H Calcium 8.6 05/19/16 05/19/16 05/19/16 11:04 11:04 16:00 Creatine Kinase 442 H 313 H CK-MB (CK-2) 2.71 Troponin I 0.530 05/19/16 05/19/16 05/19/16 16:00 19:25 19:25 Creatine Kinase 373 H CK-MB (CK-2) 2.93 2.96 Troponin I 0.882 0.953 05/19/16 05/19/16 05/20/16 23:26 23:26 10:47 Creatine Kinase 364 H CK-MB (CK-2) 2.80 Troponin I 0.837 0.538 Impressions: Head CT 05/18/16 22:08 IMPRESSION: MILD CHRONIC CHANGES OF ATROPHY AND MICROVASCULAR ISCHEMIA. NO ACUTE PROCESS. Assessment & Plan - Diagnosis (1) Acute worsening of stage 3 chronic kidney disease Is this a current diagnosis for this admission?: Yes (2) Leukocytosis Qualifiers: Leukocytosis type: unspecified Qualified Code(s): D72.829 - Elevated white blood cell count, unspecified Is this a current diagnosis for this admission?: Yes (3) Elevated troponin Is this a current diagnosis for this admission?: Yes (4) Diabetes mellitus type 1 Qualifiers: Diabetes mellitus complication status: without complication Qualified Code(s): E10.9 - Type 1 diabetes mellitus without complications Is this a current diagnosis for this admission?: Yes (5) HTN (hypertension) Qualifiers: Hypertension type: essential hypertension Qualified Code(s): I10 - Essential (primary) hypertension Is this a current diagnosis for this admission?: Yes (6) COPD (chronic obstructive pulmonary disease) Qualifiers: COPD type: unspecified COPD Qualified Code(s): J44.9 - Chronic obstructive pulmonary disease, unspecified Is this a current diagnosis for this admission?: Yes (7) Coronary artery disease Qualifiers: Coronary Disease-Associated Artery/Lesion type: [place] artery [place] vs. transplanted heart: [place] heart Associated angina: without angina Qualified Code(s): I25.10 - Atherosclerotic heart disease of [place] coronary artery without angina pectoris Is this a current diagnosis for this admission?: Yes (8) Hyperlipidemia Qualifiers: Hyperlipidemia type: unspecified Qualified Code(s): E78.5 - Hyperlipidemia, unspecified Is this a current diagnosis for this admission?: Yes (9) GERD (gastroesophageal reflux disease) Qualifiers: Esophagitis presence: without esophagitis Qualified Code(s): K21.9 - Gastro-esophageal reflux disease without esophagitis Is this a current diagnosis for this admission?: Yes - Time Time Spent with patient: 25-34 minutes - Plan Summary Plan Summary: We are going to resume the patient's antihypertensive medications. We will hold the ARB however. Continue IV hydration and monitor creatinine. Patient denies any symptoms of stroke prior to the fall. Continue supportive care.
[2016-05-20] MEDS ORDERED: FUROSEMIDE INJ/PF 100 MG/10 ML SDV ONE (17:38)
[2016-05-20] MEDS ORDERED: FUROSEMIDE INJ/PF 40 MG/4 ML SDV IV ONE (17:38)
[2016-05-20] MEDS ORDERED: LEVALBUTEROL HCL NEB 1.25 MG/3 ML AMPUL NEB ONE (17:39)
[2016-05-20] MEDS ORDERED: IPRATROPIUM BROMIDE 0.02% NEB 0.5 MG/2.5 ML AMPUL NEB ONE (17:40)
[2016-05-20] MEDS ORDERED: LEVALBUTEROL HCL NEB 1.25 MG/3 ML AMPUL NEB PRN (17:42)
[2016-05-20] MEDS: TAMSULOSIN HCL 0.4 MG CAP.SR.24H PO SCH (18:17)
[2016-05-20] MEDS ORDERED: NORMAL SALINE 1000 ML 1,000 ML IV PRN (18:17)
--- NOTE | 2016-05-20 19:13 | PROGRESS NOTE E ---
Progress Note NAME: DENNIS SHAW : 1950 AGE: 66Y DATE: 05/20/2016 ROOM: 333 SUBJECTIVE: Note that the patient denies any chest pain or discomfort, but as per the and also in talking the patient, he is slightly confused. He is oriented to person but not oriented to place or time. There is no arrhythmia seen on the monitor. There is no shortness of breath. There is no PND or orthopnea. There is no leg edema. There is no arrhythmia seen on the monitor. OBJECTIVE: GENERAL: On examination, the patient is in no acute distress. He is moderately obese, in no acute distress. VITAL SIGNS: He has a low-grade temperature of 99 degrees Fahrenheit. Pulse is 84 beats per minute. Blood pressure is 161/77, and respirations are 22 per minute. O2 saturations are 93% on room air. HEAD: Atraumatic/normocephalic. EYES: Pupils are equal, round, regular, reactive to light and accommodation. Extraocular movements are normal. There is no conjunctival pallor. There is no scleral icterus. EARS, NOSE, AND THROAT: Negative. NECK: Supple. There is no JVD. Carotids are equal. There is no bruit. There is no goiter. There is no lymphadenopathy. Carotids are equal. Trachea is central. LUNGS: Clear to auscultation/percussion. HEART: S1, S2 is heard. There is no S3 gallop. There is no S4 gallop. There is a systolic murmur in the left sternal border and the apex. There is no rub. ABDOMEN: Soft, obese, nontender. There is no hepatosplenomegaly. Bowel sounds are well heard. EXTREMITIES: Femorals are diminished. There is no femoral bruit. Leg pulses are diminished. There is no pedal edema. There is no DVT or cellulitis. There is no cyanosis or clubbing. There is no calf tenderness. CENTRAL NERVOUS SYSTEM: The patient is conscious and alert but oriented only to person. He has no focal deficits. PSYCHIATRIC: The patient does not appear to be agitated or depressed. His affect is normal, but his judgement and insight could not be tested. DIAGNOSTIC DATA: The patient's EKG shows sinus rhythm. There are some minor borderline nonspecific T-wave abnormalities in the lateral leads unchanged from before. The patient's chest x-ray shows patchy infiltrates with confluent airspace disease in the right mid-lung zone. This appears to be more in the right lower lobe, probable volume loss left lower lobe, trace right pleural fluid. The patient's sodium is 139, potassium 4.94, chloride is 109, CO2 is 18, the patient's BUN is 46, creatinine is 3.40, GFR is reduced at 18 which is chronic kidney disease stage 4, his glucose is 151, his calcium is 8.6. His troponin-I has come down to 0.538. The patient's white count is 10,500, hemoglobin is 12.3, hematocrit is 36.6, platelet count is 169,000. IMPRESSION: 1. ACUTE ON CHRONIC KIDNEY DISEASE. STILL KIDNEY FUNCTION IS CHRONIC KIDNEY DISEASE IS STAGE 4. THE PATIENT'S BASELINE CHRONIC KIDNEY DISEASE IS STAGE 3. 2. CONFUSION AND ALTERED MENTAL STATUS SECONDARY TO RENAL FAILURE VERSUS SECONDARY TO RECURRENCE OF TIA. THE PATIENT STILL SEEMS TO BE CONFUSED. 3. MOST LIKELY THE PATIENT HAS A TIA. 4. ELEVATED TROPONIN-I MOST LIKELY SECONDARY TO ACUTE RENAL FAILURE AND POSSIBLY TIA. NO DEFINITE EVIDENCE OF [id number] NE, BUT THE PATIENT DOES HAVE SOME T-WAVE CHANGES IN THE LATERAL LEADS WHICH HAVE BEEN STABLE. 5. NO EVIDENCE OF ATRIAL FLUTTER. THIS IS MOSTLY ARTIFACT. 6. HISTORY CORONARY ARTERY DISEASE AND MYOCARDIAL INFARCTION, HISTORY OF STENT. NO ANGINAL SYMPTOMS. 7. HYPERTENSION, STILL NOT VERY WELL CONTROLLED. NOTE THAT THE PATIENT WILL BE STARTED ON AMLODIPINE. WOULD RECOMMEND INCREASING THE AMLODIPINE TO 5 MG P.O. Q.12 H. 8. DIABETES MELLITUS TYPE 2 INSULIN REQUIRING WITH NEUROPATHY AND CHRONIC KIDNEY DISEASE. 9. CHRONIC KIDNEY DISEASE, AT PRESENT STAGE 4. AT BASELINE HIS CKD IS STAGE 3. 10. HISTORY OF CEREBROVASCULAR ACCIDENT X2 WITH GAIT IMBALANCE. 11. HISTORY OF FALL AND HEAD INJURY ON 05/17/2016. 12. HYPERLIPIDEMIA. 13. HISTORY OF ENLARGED PROSTATE. 14. GASTROESOPHAGEAL REFLUX DISEASE. 15. POSSIBLE RIGHT LOWER LOBE PNEUMONIA. RECOMMENDATIONS: Continue Lasix. Continue antibiotics. Would continue the patient on metoprolol. Continue aspirin and Plavix. Note that the patient's ARB has been held in view of the patient's renal status. Would recommend increasing the patient's amlodipine to 5 mg p.o. q.12 h. Will check an echocardiogram on Sunday. Discussed above findings with the patient's and the patient also, but I am not sure if the patient understands what I told him very well, but the does understand. The requested the patient be stabilized, and they want to go back to [place] where he can have further tests done. Discussed the case with the hospitalist taking care of the patient. Note 40 minutes spent taking care of the patient with more than 50% of the time spent in direct patient care, also reviewing the patient's medications and adjusting the patient's prescriptions, that is in fact increasing the amlodipine to 5 mg p.o. q.12 h. Note, that the troponin-I is trending down. Will follow with you. DICTATING PHYSICIAN: TOMA KAY M.D. [id number] PHY#: [id number] ID: [id number] JOB#: [id number] ACCT: [id number] cc:TOMA KAY M.D. > MTDD
[2016-05-20] MEDS: METOLAZONE 5 MG TABLET PO SCH (20:32)
[2016-05-20] MEDS: IPRATROPIUM BROMIDE 0.02% NEB 0.5 MG/2.5 ML AMPUL NEB SCH (20:45)
[2016-05-20] MEDS: LEVALBUTEROL HCL NEB 1.25 MG/3 ML AMPUL NEB SCH (20:46)
[2016-05-20] MEDS ORDERED: LEVOFLOXACIN 750 MG/D5W RTU 750 MG/150 ML RTUPB IV SCH (22:00)
[2016-05-20] MEDS: FUROSEMIDE INJ/PF 40 MG/4 ML SDV IV SCH (22:34)
[2016-05-20] MEDS: CEFTRIAXONE 1 GM/D5W RTU 1 GM/50 ML RTUPB IV SCH (22:35)
[2016-05-20] MEDS: AMLODIPINE BESYLATE 5 MG TABLET PO SCH (22:35)
[2016-05-20] MEDS: INSULIN LISPRO 100 UNIT/ML 3 ML VIAL SUBCUT PRN (22:42)
[2016-05-21] MEDS: METOLAZONE 5 MG TABLET PO SCH (06:19)
[2016-05-21 06:48] LABS: ANION GAP 14 (5-19); BLOOD UREA NITROGEN 52 mg/dL (7-20); CALCIUM 8.7 mg/dL (8.4-10.2); CARBON DIOXIDE 18 mmol/L (22-30); CHLORIDE 106 mmol/L (98-107); CREATININE RESULT 3.21 mg/dL (0.52-1.25); GLUCOSE 231 mg/dL (75-110); SODIUM 137.7 mmol/L (137-145)
[2016-05-21] MEDS ORDERED: AMLODIPINE BESYLATE 5 MG TABLET PO SCH (08:00)
[2016-05-21] MEDS: LEVALBUTEROL HCL NEB 1.25 MG/3 ML AMPUL NEB SCH ×3 (08:16→19:37)
[2016-05-21] MEDS: IPRATROPIUM BROMIDE 0.02% NEB 0.5 MG/2.5 ML AMPUL NEB SCH ×3 (08:16→19:37)
[2016-05-21] MEDS: DOCUSATE SODIUM 100 MG CAPSULE PO SCH ×2 (08:20→17:39)
[2016-05-21] MEDS: GABAPENTIN 100 MG CAPSULE PO SCH ×2 (08:20→17:39)
[2016-05-21] MEDS: METOPROLOL TARTRATE 100 MG TABLET PO SCH ×2 (08:20→22:14)
[2016-05-21] MEDS: ASPIRIN 81 MG TABLET, ENT COATED PO SCH (08:21)
[2016-05-21] MEDS: AMLODIPINE BESYLATE 5 MG TABLET PO SCH ×2 (08:22→22:13)
[2016-05-21] MEDS: CLOPIDOGREL BISULFATE 75 MG TABLET PO SCH (08:22)
[2016-05-21] MEDS: HEPARIN SOD (PORCINE) 5,000 UNIT/ML 1 ML SYRINGE SUBCUT SCH ×2 (08:22→22:14)
[2016-05-21] MEDS: INSULIN LISPRO 100 UNIT/ML 3 ML VIAL SUBCUT PRN ×3 (08:23→22:13)
[2016-05-21] MEDS: FUROSEMIDE INJ/PF 40 MG/4 ML SDV IV SCH (08:23)
--- NOTE | 2016-05-21 10:59 | PDOC PROGRESS REPORT ---
Subjective Progress Note for:: 05/21/16 Subjective:: Patient had an episode of respiratory distress yesterday. Reported low-grade fever yesterday as well . Patient having intermittent wheezing. Chest x-ray revealed the infiltrate in the right lower lobe. Patient was tried on diuretics , and nebulizers. Antibiotics started. Oxygen increased. Patient improved this morning. Patient however constantly removes the cannula. Physical Exam Vital Signs: Temp Pulse Resp BP Pulse Ox 99.6 F 100 18 150/82 H 94 05/21/16 07:44 05/21/16 08:16 05/21/16 08:16 05/21/16 07:44 05/21/16 08:16 Intake & Output 05/20/16 05/21/16 05/22/16 05:59 06:59 06:59 Intake Total Balance Weight General appearance: PRESENT: no acute distress, morbidly obese Head exam: PRESENT: normocephalic Eye exam: PRESENT: EOMI Mouth exam: PRESENT: moist, neck supple Neck exam: ABSENT: JVD Respiratory exam: PRESENT: rhonchi - Bilateral, wheezes - Expiratory bilateral Cardiovascular exam: PRESENT: RRR. ABSENT: gallop GI/Abdominal exam: PRESENT: soft. ABSENT: distended - Obese, tenderness Extremities exam: PRESENT: other - Trace lower extremity edema Neurological exam: PRESENT: alert, awake, oriented to situation Skin exam: PRESENT: dry, warm. ABSENT: cyanosis Results Laboratory Results: 05/20/16 04:49 05/21/16 05:59 05/21/16 05:59 Sodium 137.7 Potassium 5.0 Chloride 106 Carbon Dioxide 18 L Anion Gap 14 BUN 52 H Creatinine 3.21 H Est GFR ( Amer) 24 L Est GFR (Non-Af Amer) 20 L Glucose 231 H Calcium 8.7 05/19/16 05/19/16 05/19/16 11:04 11:04 16:00 Creatine Kinase 442 H 313 H CK-MB (CK-2) 2.71 Troponin I 0.530 05/19/16 05/19/16 05/19/16 16:00 19:25 19:25 Creatine Kinase 373 H CK-MB (CK-2) 2.93 2.96 Troponin I 0.882 0.953 05/19/16 05/19/16 05/20/16 23:26 23:26 10:47 Creatine Kinase 364 H CK-MB (CK-2) 2.80 Troponin I 0.837 0.538 Impressions: Head CT 05/18/16 22:08 IMPRESSION: MILD CHRONIC CHANGES OF ATROPHY AND MICROVASCULAR ISCHEMIA. NO ACUTE PROCESS. Chest X-Ray 05/20/16 00:00 IMPRESSION: Right infiltrate worrisome for pneumonia or aspiration. Assessment & Plan - Diagnosis (1) Pneumonia Qualifiers: Pneumonia type: due to unspecified organism Laterality: right Lung location: unspecified part of lung Qualified Code(s): J18.9 - Pneumonia, unspecified organism Is this a current diagnosis for this admission?: Yes (2) COPD exacerbation Is this a current diagnosis for this admission?: Yes (3) Acute worsening of stage 3 chronic kidney disease Is this a current diagnosis for this admission?: Yes (4) Leukocytosis Qualifiers: Leukocytosis type: unspecified Qualified Code(s): D72.829 - Elevated white blood cell count, unspecified Is this a current diagnosis for this admission?: Yes (5) Elevated troponin Is this a current diagnosis for this admission?: Yes (6) Diabetes mellitus type 1 Qualifiers: Diabetes mellitus complication status: without complication Qualified Code(s): E10.9 - Type 1 diabetes mellitus without complications Is this a current diagnosis for this admission?: Yes (7) HTN (hypertension) Qualifiers: Hypertension type: essential hypertension Qualified Code(s): I10 - Essential (primary) hypertension Is this a current diagnosis for this admission?: Yes (8) Coronary artery disease Qualifiers: Coronary Disease-Associated Artery/Lesion type: [place] artery [place] vs. transplanted heart: [place] heart Associated angina: without angina Qualified Code(s): I25.10 - Atherosclerotic heart disease of [place] coronary artery without angina pectoris Is this a current diagnosis for this admission?: Yes (9) Hyperlipidemia Qualifiers: Hyperlipidemia type: unspecified Qualified Code(s): E78.5 - Hyperlipidemia, unspecified Is this a current diagnosis for this admission?: Yes (10) GERD (gastroesophageal reflux disease) Qualifiers: Esophagitis presence: without esophagitis Qualified Code(s): K21.9 - Gastro-esophageal reflux disease without esophagitis Is this a current diagnosis for this admission?: Yes - Time Time Spent with patient: 25-34 minutes - Plan Summary Plan Summary: Begin steroids intravenously. Decrease diuretic dose continue gentle hydration and monitor creatinine. Continue antibiotics and bronchodilators.
[2016-05-21] MEDS: METHYLPREDNISOLONE INJ 125 MG/2 ML SDV IV SCH ×2 (17:38→22:14)
[2016-05-21] MEDS: TAMSULOSIN HCL 0.4 MG CAP.SR.24H PO SCH (17:39)
[2016-05-21] MEDS: CEFTRIAXONE 1 GM/D5W RTU 1 GM/50 ML RTUPB IV SCH (22:15)
[2016-05-22] MEDS: LEVALBUTEROL HCL NEB 1.25 MG/3 ML AMPUL NEB SCH ×4 (02:18→20:12)
[2016-05-22] MEDS: IPRATROPIUM BROMIDE 0.02% NEB 0.5 MG/2.5 ML AMPUL NEB SCH ×4 (02:18→20:12)
[2016-05-22] MEDS: METHYLPREDNISOLONE INJ 125 MG/2 ML SDV IV SCH ×3 (05:15→23:07)
[2016-05-22 05:50] LABS: HEMATOCRIT 37.5 % (37.9-51.0); HEMOGLOBIN 12.8 g/dL (13.5-17.0); HGB HCT DIFFERENCE 0.9; MEAN CORPUSCULAR HEMOGLOBIN 30.2 pg (27.0-33.4); MEAN CORPUSCULAR HGB CONC 34.1 g/dL (32.0-36.0); MEAN CORPUSCULAR VOLUME 88 fl (80-97); RED BLOOD COUNT 4.24 10^6/uL (4.35-5.55); RED CELL DISTRIBUTION WIDTH 13.9 % (11.5-14.0); WHITE BLOOD COUNT 10.5 10^3/uL (4.0-10.5)
[2016-05-22 06:05] LABS: ANION GAP 17 (5-19); BLOOD UREA NITROGEN 66 mg/dL (7-20); CALCIUM 8.6 mg/dL (8.4-10.2); CARBON DIOXIDE 16 mmol/L (22-30); CHLORIDE 103 mmol/L (98-107); CREATININE RESULT 3.36 mg/dL (0.52-1.25); GLUCOSE 354 mg/dL (75-110); SODIUM 136.2 mmol/L (137-145)
[2016-05-22 06:11] LABS: POTASSIUM 5.3 mmol/L (3.6-5.0)
--- NOTE | 2016-05-22 09:58 | PROGRESS NOTE E ---
Progress Note NAME: DENNIS SHAW : 1950 AGE: 66Y DATE: 05/21/2016 ROOM: 333 SUBJECTIVE: The patient denies any chest pain or discomfort. There is no PND or orthopnea, there is no leg edema. There are no arrhythmias seen on the monitor. The patient has difficulty in getting his words out. He is oriented to person but not to place or time. OBJECTIVE: GENERAL: On examination, the patient is in no acute distress. The patient is moderately obese. VITAL SIGNS: degrees Fahrenheit, pulse of 81 beats per minute. Blood pressure is 150/ 94% on nasal cannula. HEAD: Atraumatic . EARS, NOSE, AND THROAT: Negative. NECK: Supple. There is no JVD. Carotids are equal. There is no bruit. There is no goiter. There is no lymphadenopathy. Carotids are equal. There is no carotid bruit. Trachea is central. LUNGS: Show a few crackles in the right lower lobe and right mid zone. The rest of the lungs are clear. HEART: S1, S2 are heard. There is no S3 gallop. There is no S4 gallop. There is a systolic murmur in the left sternal border and the apex. There is no rub. ABDOMEN: Soft, obese, nontender. There is no hepatosplenomegaly. Bowel sounds are well heard. EXTREMITIES: . CENTRAL NERVOUS SYSTEM: . DIAGNOSTIC DATA: the patient's sodium was 137.5, potassium is 5.0, chloride is 106. The patient's cO2 is 18. The patient's BUN is 52, creatinine is 3.21, GFR is reduced at 20 mL, which is still stage 4. His glucose is 231 and his calcium is 6.7. IMPRESSION: 1. ACUTE ON CHRONIC KIDNEY DISEASE. STILL KIDNEY FUNCTION IS STAGE 4, BUT SLIGHTLY IMPROVED. GFR HAS IMPROVED TO 20 ML. NOTE THAT THE PATIENT'S BASELINE CHRONIC KIDNEY DISEASE IS STAGE 3. 2. CONFUSION AND ALTERED MENTAL STATUS SECONDARY TO RENAL FAILURE VERSUS SECONDARY TO RECURRENCE OF TIA. NOTE THAT THE PATIENT RECOMMENDATIONS: treatment of his diabetes mellitus. Continue Plavix and aspirin. Continue Lasix 40 mg IV daily. Continue the respiratory treatments. Continue steroids. Continue metoprolol 100 mg p.o. q.12 hours. Note that the patient is back on metolazone 10 mg p.o. daily and Lasix 40 mg IV daily. Would recommend checking an MRI of the brain without contrast to ensure that this is not a CVA, and also would recommend getting an echocardiogram to assess LV ejection fraction and wall motion abnormality in view of the patient's recent elevated troponin and history of coronary artery disease. Note, 40 minutes spent on this patient, more than 50% of the time spent in direct patient care and reviewing the patient's medications and discussions with other physicians on the case. The case decision making is of moderate complexity. I will follow with you. DICTATING PHYSICIAN: TOMA KAY M.D. [id number] MEHDIY#: [id number] ID: [id number] JOB#: [id number] ACCT: [id number] cc: >
[2016-05-22] MEDS ORDERED: METOLAZONE 5 MG TABLET PO SCH (10:00)
[2016-05-22] MEDS ORDERED: FUROSEMIDE INJ/PF 40 MG/4 ML SDV IV SCH (10:00)
--- NOTE | 2016-05-22 10:06 | PDOC PROGRESS REPORT ---
Subjective Progress Note for:: 05/22/16 Subjective:: Patient improved. Denies any chills or fever, denies shortness of breath nausea or vomiting, denies diarrhea at this time. Intermittent confusion has been reported but better. Chest congestion improved as well as coughing. Physical Exam Vital Signs: Temp Pulse Resp BP Pulse Ox 97.6 F 90 18 147/72 H 94 05/22/16 07:32 05/22/16 09:07 05/22/16 09:07 05/22/16 07:32 05/22/16 09:07 Intake & Output 05/21/16 05/22/16 05/23/16 06:59 06:59 06:59 Intake Total 1740 Balance 1740 Weight General appearance: PRESENT: no acute distress, cooperative, obese Head exam: PRESENT: normocephalic Eye exam: PRESENT: EOMI Mouth exam: PRESENT: moist, neck supple Neck exam: ABSENT: JVD Respiratory exam: PRESENT: decreased breath sounds - Bilateral, rhonchi - Minimal on the right. ABSENT: wheezes Cardiovascular exam: PRESENT: RRR. ABSENT: gallop GI/Abdominal exam: PRESENT: normal bowel sounds, soft. ABSENT: distended, tenderness Extremities exam: PRESENT: other - trace edema Neurological exam: PRESENT: alert, awake, other - Appropriately responsive to questions Skin exam: PRESENT: dry, warm. ABSENT: cyanosis Results Laboratory Results: 05/22/16 05:02 05/22/16 05:02 05/22/16 05/22/16 05:02 05:02 WBC 10.5 RBC 4.24 L Hgb 12.8 L Hct 37.5 L MCV 88 MCH 30.2 MCHC 34.1 RDW 13.9 Plt Count 203 Sodium 136.2 L Potassium 5.3 H Chloride 103 Carbon Dioxide 16 L Anion Gap 17 BUN 66 H Creatinine 3.36 H Est GFR ( Amer) 22 L Est GFR (Non-Af Amer) 19 L Glucose 354 H Calcium 8.6 05/19/16 05/19/16 05/19/16 11:04 11:04 16:00 Creatine Kinase 442 H 313 H CK-MB (CK-2) 2.71 Troponin I 0.530 05/19/16 05/19/16 05/19/16 16:00 19:25 19:25 Creatine Kinase 373 H CK-MB (CK-2) 2.93 2.96 Troponin I 0.882 0.953 05/19/16 05/19/16 05/20/16 23:26 23:26 10:47 Creatine Kinase 364 H CK-MB (CK-2) 2.80 Troponin I 0.837 0.538 Impressions: Head CT 05/18/16 22:08 IMPRESSION: MILD CHRONIC CHANGES OF ATROPHY AND MICROVASCULAR ISCHEMIA. NO ACUTE PROCESS. Chest X-Ray 05/20/16 00:00 IMPRESSION: Right infiltrate worrisome for pneumonia or aspiration. Head MRI 05/21/16 00:00 IMPRESSION: MINIMAL MICROVASCULAR ISCHEMIC CHANGE. OTHERWISE NORMAL STUDY. Assessment & Plan - Diagnosis (1) Pneumonia Qualifiers: Pneumonia type: due to unspecified organism Laterality: right Lung location: unspecified part of lung Qualified Code(s): J18.9 - Pneumonia, unspecified organism Is this a current diagnosis for this admission?: Yes (2) COPD exacerbation Is this a current diagnosis for this admission?: Yes (3) Acute worsening of stage 3 chronic kidney disease Is this a current diagnosis for this admission?: Yes (4) Leukocytosis Qualifiers: Leukocytosis type: unspecified Qualified Code(s): D72.829 - Elevated white blood cell count, unspecified Is this a current diagnosis for this admission?: Yes (5) Elevated troponin Is this a current diagnosis for this admission?: Yes (6) Diabetes mellitus type 1 Qualifiers: Diabetes mellitus complication status: without complication Qualified Code(s): E10.9 - Type 1 diabetes mellitus without complications Is this a current diagnosis for this admission?: Yes (7) HTN (hypertension) Qualifiers: Hypertension type: essential hypertension Qualified Code(s): I10 - Essential (primary) hypertension Is this a current diagnosis for this admission?: Yes (8) Coronary artery disease Qualifiers: Coronary Disease-Associated Artery/Lesion type: [place] artery [place] vs. transplanted heart: [place] heart Associated angina: without angina Qualified Code(s): I25.10 - Atherosclerotic heart disease of [place] coronary artery without angina pectoris Is this a current diagnosis for this admission?: Yes (9) Hyperlipidemia Qualifiers: Hyperlipidemia type: unspecified Qualified Code(s): E78.5 - Hyperlipidemia, unspecified Is this a current diagnosis for this admission?: Yes (10) GERD (gastroesophageal reflux disease) Qualifiers: Esophagitis presence: without esophagitis Qualified Code(s): K21.9 - Gastro-esophageal reflux disease without esophagitis Is this a current diagnosis for this admission?: Yes - Time Time Spent with patient: 25-34 minutes - Plan Summary Plan Summary: Begin physical therapy. Patient is chest congestion now improved. We will discontinue diuretics as creatinine started to trend up. Continue gentle hydration and recheck creatinine in the morning. We will do a follow-up chest x -ray see if the infiltrate improved and if indeed likely related to IV fluid hydration. Await the echocardiogram results. Continue current antibiotics for pneumonia. Continue steroids as patient responded well.
--- NOTE | 2016-05-22 10:44 | XCELERA REPORT ---
[address] [address] Transthoracic Echocardiogram Report Name: DENNIS SHAW Age: 66 yrs Gender: Male : 1950 Patient Status: Inpatient Patient Location: 3S\S\333\S\A Study Date: 05/21/2016 02:38 PM Height: 72 in Weight: 263 lb BSA: 2.4 m2 Procedure: A two-dimensional transthoracic echocardiogram with color flow and Doppler was performed. Study Quality: Technically suboptimal. The study was technically difficult with many images being suboptimal in quality. The study was technically limited with all images being suboptimal in quality. Reason For Study: CAD / Eievated Troponin / Abnormal EKG. History: CAD / Eievated Troponin / Abnormal EKG. Ordering Physician: VANESA KAY Performed By: Ck Bagley Interpretation Summary The left ventricle is normal in size. There is mild concentric left ventricular hypertrophy. No 'True Apical 2 chamber views ' obtained.Hence cannot comment on the apical and basal Inferior and the apical and basal anterior gonzales.The mid Inferior,the mid anterior , and the rest of the LV gonzales probably contract normally , and in these views the LVEF is normal,and in excess of 60%. Doppler measurements suggest impaired left ventricular relaxation, which is associated with grade I/IV or mild diastolic dysfunction There is no thrombus. The left atrial size is normal. There is no evidence of mitral valve prolapse. There is no mitral valve stenosis. There is a trace to mild amount of mitral regurgitation There is no aortic valve stenosis There is no LVOT obstruction. No aortic regurgitation is present. There is no tricuspid stenosis. There is a trace amount of tricuspid regurgitation Right ventricular systolic pressure is normal. RVSP is 26 mm of Hg , with RA mean of 10. The aortic root is not well visualized but is probably normal size. There is no pericardial effusion. MMode/2D Measurements \T\ Calculations RVDd: 3.1 cm LVIDd: 4.8 cm FS: 26.1 % Ao root diam: 3.6 cm IVSd: 1.2 cm LVIDs: 3.5 cm EDV(Teich): 106.2 ml LVPWd: 1.3 cm ESV(Teich): 51.9 ml Ao root area: 10.4 cm2 EF(Teich): 51.1 % LA dimension: 3.5 cm Doppler Measurements \T\ Calculations MV E max anjel: MV P1/2t max anjel: Ao V2 max: LV V1 max P.6 cm/sec 49.4 cm/sec 177.8 cm/sec 5.8 mmHg MV A max anjel: MV P1/2t: 52.5 msec Ao max PG: LV V1 max: 67.1 cm/sec 12.6 mmHg 120.9 cm/sec MV E/A: 0.71 MVA(P1/2t): 4.2 cm2 MV dec slope: 275.5 cm/sec2 MV dec time: 0.18 sec PA V2 max: TR max anjel: RAP systole: 116.3 cm/sec 198.2 cm/sec 10.0 mmHg PA max PG: TR max P.7 mmHg 5.4 mmHg RVSP(TR): 25.7 mmHg Left Ventricle The left ventricle is normal in size. There is mild concentric left ventricular hypertrophy. No 'True Apical 2 chamber views ' obtained.Hence cannot comment on the apical and basal Inferior and the apical and basal anterior gonzales.The mid Inferior,the mid anterior , and the rest of the LV gonzales probably contract normally , and in these views the LVEF is normal,and in excess of 60%. Doppler measurements suggest impaired left ventricular relaxation, which is associated with grade I/IV or mild diastolic dysfunction. There is no thrombus. Right Ventricle The right ventricle is not well visualized secondary to technical limitations. Atria Right atrium not well visualized secondary to technical limitations. The left atrial size is normal. Mitral Valve There is no evidence of mitral valve prolapse. There is no vegetation seen on the mitral valve. There is no mitral valve stenosis. There is a trace to mild amount of mitral regurgitation. Aortic Valve There is no aortic valve stenosis. There is no LVOT obstruction. No aortic regurgitation is present. Tricuspid Valve There is no tricuspid stenosis. There is a trace amount of tricuspid regurgitation. Right ventricular systolic pressure is normal. RVSP is 26 mm of Hg , with RA mean of 10. Pulmonic Valve The pulmonic valve is normal in structure and function. Great Vessels The aortic root is not well visualized but is probably normal size. Effusions There is no pericardial effusion. : VANESA KAY > Vanesa Kay
[2016-05-22] MEDS: DOCUSATE SODIUM 100 MG CAPSULE PO SCH ×2 (12:22→17:33)
[2016-05-22] MEDS: AMLODIPINE BESYLATE 5 MG TABLET PO SCH ×2 (12:23→23:07)
[2016-05-22] MEDS: CLOPIDOGREL BISULFATE 75 MG TABLET PO SCH (12:23)
[2016-05-22] MEDS: GABAPENTIN 100 MG CAPSULE PO SCH ×2 (12:24→12:29)
[2016-05-22] MEDS: METOPROLOL TARTRATE 100 MG TABLET PO SCH ×2 (12:24→23:08)
[2016-05-22] MEDS: HEPARIN SOD (PORCINE) 5,000 UNIT/ML 1 ML SYRINGE SUBCUT SCH ×2 (12:26→23:09)
[2016-05-22] MEDS: INSULIN LISPRO 100 UNIT/ML 3 ML VIAL SUBCUT PRN ×3 (12:26→23:10)
[2016-05-22] MEDS: ASPIRIN 81 MG TABLET, ENT COATED PO SCH (12:26)
[2016-05-22] MEDS ORDERED: NITROGLYCERIN 5 MG (0.2 MG/HR) PATCH.TD24 TD ONE ×2 (14:00→17:30)
--- NOTE | 2016-05-22 14:12 | PROGRESS NOTE E ---
Progress Note NAME: DENNIS SHAW : 1950 AGE: 66Y DATE: 05/22/2016 ROOM: 333 SUBJECTIVE: The patient today is awake, alert, oriented x3. He is oriented to person, place, and time. He has no focal deficits. He remains in sinus rhythm. He denies any chest pain or shortness of breath. There is no PND, orthopnea. There is no leg edema. There is no arrhythmia seen on the monitor. OBJECTIVE: GENERAL: On examination, the patient is moderately obese in no acute distress. VITAL SIGNS: He is afebrile with a temperature of 97.6 degrees Fahrenheit, pulse of 76 beats per minute. Blood pressure is 147/72. Respirations are 20 per minute. O2 sats are 98% on 5 liters nasal cannula. HEAD: Atraumatic normocephalic. EYES: Pupils are equal, round, reactive to light and accommodation. Extraocular movements are normal. There is no conjunctival pallor. There is no scleral icterus. EARS, NOSE, AND THROAT: Negative. NECK: Supple. There is no JVD. Carotids are equal. There is no bruit. There is no goiter. There is no lymphadenopathy. Carotids are equal. Trachea is central. LUNGS: Clear to auscultation and percussion. HEART: S1, S2 are heard. There is no S3 gallop. There is no S4 gallop. There is a systolic murmur in the left sternal border and the apex. There is no rub. ABDOMEN: Soft, obese, nontender. There is no hepatosplenomegaly. Bowel sounds are well heard. EXTREMITIES: Femorals are diminished. There is no femoral bruits. Leg pulses are diminished. There is no pedal edema. There is no DVT or cellulitis. There is no cyanosis or clubbing. There is no calf tenderness. CENTRAL NERVOUS SYSTEM: The patient is conscious, awake, alert, and oriented to person, place and time. He has no focal deficits. PSYCHIATRIC: The patient's judgement and insight are intact. His affect is normal. DIAGNOSTIC DATA: The patient's chest x-ray shows possible right mid lobe/lower lobe infiltrate which is getting better. The patient's echocardiogram, which is suboptimal study and a limited study. The left ventricle is normal in size. There is mild concentric left ventricular hypertrophy. There *------* apical two chamber views not obtained, hence, cannot comment on the apical and basal inferior and the apical and the apical and basal anterior gonzales. The mid inferior, the mid anterior, and the rest of the LV gonzales probably contract normally. On the induced views, the LV ejection fraction is normal at 60%. There is left ventricular diastolic dysfunction grade I which is mild. There is no thrombus. Right ventricle is not well visualized. There is no evidence of mitral valve prolapse or no mitral stenosis. There is trace to mild amount of mitral regurgitation. There is no aortic valve stenosis. There is no aortic regurgitation. There is trace tricuspid regurgitation, right ventricular systolic pressure is normal and is 26 mmHg with RA mean of 10. There is no pericardial effusion. The patient's white count is 10,500; hemoglobin is 12.8; hematocrit is 37.5; platelet count is 203,000. The patient's sodium is 136.2, potassium 5.3, chloride is 103, CO2 is 16, the patient's BUN is 66, creatinine is 3.36, GFR is reduced at 19 mL which is chronic kidney disease stage IV. The patient's glucose is 354, his calcium is 8.6. IMPRESSION: 1. ACUTE ON CHRONIC KIDNEY DISEASE. PATIENT STILL WITH STAGE IV CHRONIC KIDNEY DISEASE. 2. HYPERKALEMIA. 3. CONFUSION AND ALTERED MENTAL STATUS, NOW RESOLVED. THE PATIENT IS BACK TO BASELINE. 4. MOST LIKELY THE PATIENT HAS A TIA. 5. ELEVATED TROPONIN-I MOST LIKELY SECONDARY TO ACUTE RENAL FAILURE AND POSSIBLY TIA. NO DEFINITE EVIDENCE OF [id number] OR, BUT THE PATIENT DOES HAVE SOME T-WAVE CHANGES IN THE LATERAL LEADS. 6. NO EVIDENCE OF ATRIAL FLUTTER. THIS IS ARTIFACT. THERE IS NO RECURRENCE OF THAT. 7. MOST LIKELY RIGHT LOWER LOBE AND RIGHT MIDDLE LOBE PNEUMONIA. 8. HISTORY CORONARY ARTERY DISEASE AND MYOCARDIAL INFARCTION, HISTORY OF STENT. NO ANGINAL SYMPTOMS. 9. HYPERTENSION. BLOOD PRESSURE MUCH BETTER CONTROLLED AND THE PATIENT IS ON AMLODIPINE AND METOPROLOL. HE IS ALSO ON ASPIRIN AND PLAVIX. 10. DIABETES MELLITUS TYPE 2 INSULIN REQUIRING WITH NEUROPATHY AND CHRONIC KIDNEY DISEASE. 11. CHRONIC KIDNEY DISEASE, AT PRESENT STAGE IV. 12. HISTORY OF CEREBROVASCULAR ACCIDENT X2 WITH GAIT IMBALANCE BUT THE MRI DOES NOT SHOW ANY PRIOR INFARCTS AND HENCE, MUST HAVE BEEN TIA'S. 13. HISTORY OF FALL AND HEAD INJURY ON 05/17/2016. 14. HYPERLIPIDEMIA. 15. HISTORY OF ENLARGED PROSTATE. 16. GASTROESOPHAGEAL REFLUX DISEASE. RECOMMENDATIONS: Continue amlodipine. Continue metoprolol. Continue insulin. Continue antibiotics. Continue aspirin and Plavix. Continue beta blockers. Would recommend adding nitrates. I discussed the patient's echo findings with the patient and the patient's . The would like to have the patient back to [place]. There she can have a stress test and further workup. The patient is still not yet ready for being transferred to home. Note, 40 minutes spent on this patient with more than 50% of the time spent in direct patient care, reviewing the patient's medications and adding medications to the patient. Medical decision making is of moderate complexity. Also discussed with the other attending physicians taking care of the case. Will follow with you. Dr. Ham will be covering tomorrow. DICTATING PHYSICIAN: TOMA KAY M.D. [id number] PARKER#: [id number] ID: [id number] JOB#: [id number] ACCT: [id number] cc: >
[2016-05-22] MEDS: TAMSULOSIN HCL 0.4 MG CAP.SR.24H PO SCH (17:33)
[2016-05-22] MEDS: NORMAL SALINE 1000 ML 1,000 ML IV PRN (23:01)
[2016-05-22] MEDS: LEVOFLOXACIN 750 MG TABLET PO SCH (23:08)
[2016-05-22] MEDS: CEFTRIAXONE 1 GM/D5W RTU 1 GM/50 ML RTUPB IV SCH (23:09)
[2016-05-23] MEDS: LEVALBUTEROL HCL NEB 1.25 MG/3 ML AMPUL NEB SCH ×4 (02:43→20:58)
[2016-05-23] MEDS: IPRATROPIUM BROMIDE 0.02% NEB 0.5 MG/2.5 ML AMPUL NEB SCH ×4 (02:43→20:58)
[2016-05-23] MEDS: INSULIN LISPRO 100 UNIT/ML 3 ML VIAL SUBCUT PRN ×5 (03:13→21:24)
[2016-05-23 03:43] LABS: ANION GAP 14 (5-19); CARBON DIOXIDE 17 mmol/L (22-30); CHLORIDE 102 mmol/L (98-107); CREATININE RESULT 3.41 mg/dL (0.52-1.25); POTASSIUM 4.4 mmol/L (3.6-5.0); SODIUM 133.4 mmol/L (137-145)
[2016-05-23 03:50] LABS: BLOOD UREA NITROGEN 87 mg/dL (7-20)
[2016-05-23 03:51] LABS: GLUCOSE 451 mg/dL (75-110)
[2016-05-23 04:46] LABS: PARTIAL THROMBOPLASTIN TIME 42.5 SEC (23.5-35.8)
[2016-05-23] MEDS ORDERED: INSULIN LISPRO 100 UNIT/ML 3 ML VIAL SUBCUT ONE ×2 (05:00)
[2016-05-23 05:05] LABS: CREATINE KINASE MB 5.23 ng/mL (<4.55); TROPONIN I 1.64 ng/mL
[2016-05-23] MEDS: METHYLPREDNISOLONE INJ 125 MG/2 ML SDV IV SCH ×3 (05:57→21:23)
[2016-05-23] MEDS: GABAPENTIN 100 MG CAPSULE PO SCH ×2 (08:46→12:08)
[2016-05-23] MEDS ORDERED: INSULIN GLARGINE,HUM.REC.ANLOG 1,000 UNIT/10 ML UNIT SUBCUT ONE (09:00)
[2016-05-23] MEDS: INSULIN LISPRO 100 UNIT/ML 3 ML VIAL SUBCUT SCH ×2 (12:03→18:49)
[2016-05-23] MEDS: HEPARIN SOD (PORCINE) 5,000 UNIT/ML 1 ML SYRINGE SUBCUT SCH ×2 (12:04→21:24)
[2016-05-23] MEDS: ASPIRIN 81 MG TABLET, ENT COATED PO SCH (12:07)
[2016-05-23] MEDS: DOCUSATE SODIUM 100 MG CAPSULE PO SCH ×2 (12:07→18:47)
[2016-05-23] MEDS: CLOPIDOGREL BISULFATE 75 MG TABLET PO SCH (12:07)
[2016-05-23] MEDS: AMLODIPINE BESYLATE 5 MG TABLET PO SCH ×2 (12:08→21:23)
[2016-05-23] MEDS: METOPROLOL TARTRATE 100 MG TABLET PO SCH ×2 (12:09→21:23)
[2016-05-23] MEDS: NITROGLYCERIN 5 MG (0.2 MG/HR) PATCH.TD24 TD SCH (12:10)
--- NOTE | 2016-05-23 17:16 | EKG REPORT ---
SEVERITY:- ABNORMAL ECG - INCOMPLETE ANALYSIS DUE TO MISSING DATA IN PRECORDIAL LEAD(S) SINUS RHYTHM NONSPECIFIC INTRAVENTRICULAR CONDUCTION DELAY BORDERLINE ST DEPRESSION, DIFFUSE LEADS : Confirmed by: Vanesa Carosn MD 23-May-2016 17:15:18
--- NOTE | 2016-05-23 18:12 | PDOC PROGRESS REPORT ---
Subjective Progress Note for:: 05/23/16 Subjective:: Patient seems to be doing better with gradual improvement. Pt is denying any chest arm or neck discomfort. Patient denying any PND, orthopnea. Patient denied any sustained palpitations, dizziness, syncope, near syncope. Patient denying any fever chills. Patient denying any other significant discomfort. Patient is maintaining sinus rhythm. EKG reviewed. No significant ST segment changes are noted. Patient does have positive troponin I. Review of systems: Rest review of systems negative. Medications: Medications have been reviewed. Physical Exam Vital Signs: Temp Pulse Resp BP Pulse Ox 97.5 F 85 20 119/78 95 05/23/16 15:59 05/23/16 15:59 05/23/16 15:59 05/23/16 15:59 05/23/16 15:59 Intake & Output 05/22/16 05/23/16 05/24/16 06:59 06:59 06:59 Intake Total 1740 3288 460 Output Total 400 Balance 1740 2888 460 Weight 120.5 kg Exam: GENERAL: well-nourished and in no acute distress. Alert and oriented x3 HEAD: Atraumatic, normocephalic. EYES: Pupils equal round and reactive to light, extraocular movements intact, sclera anicteric, conjunctiva are normal. ENT: TMs normal, nares patent, oropharynx clear without exudates. Moist mucous membranes. No oral ulcerations or bleeding gums noted NECK: supple without lymphadenopathy. Trachea is central. No cervical or axillary lymphadenopathy noted. Carotids are 2+, JVD WNL LUNGS: Respiration seems nonlabored, no significant accessory muscle action noted. Bilateral fine crackles are noted at bases. No wheezes rales or rhonchi noted. No significant dullness noted on percussion. CHEST: Palpation of the chest wall shows no significant chest wall tenderness. No other significant abnormalities noted. 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 ABDOMEN: Soft, no significant tenderness appreciated, normoactive bowel sounds. No guarding, no rebound. No rigidity noted . No masses appreciated. EXTREMITIES: Pedal pulses are 1-2+, no calf tenderness noted. No clubbing or cyanosis.trace to 1+ pedal edema noted NEUROLOGICAL: Focused neurological exam showed no significant neurologic deficit. Normal speech, no significant focal weakness appreciated. Probable minimal right-sided weakness in the lower extremity and right lower extremity paresthesia, these were reported by the patient. PSYCH: Normal mood, normal affect. Judgment and insight within normal limits. SKIN: No significant ecchymosis, rash, ulcerations or signs of pruritus noted. MUSCULOSKELETAL EXAM: No significant joint swelling noted. Results Laboratory Results: 05/22/16 05:02 05/23/16 03:07 05/23/16 03:07 Sodium 133.4 L Potassium 4.4 Chloride 102 Carbon Dioxide 17 L Anion Gap 14 BUN 87 H D Creatinine 3.41 H Est GFR ( Amer) 22 L Est GFR (Non-Af Amer) 18 L Glucose 451 H* Calcium 8.0 L 05/19/16 05/19/16 05/19/16 11:04 11:04 16:00 Creatine Kinase 442 H 313 H CK-MB (CK-2) 2.71 Troponin I 0.530 05/19/16 05/19/16 05/19/16 16:00 19:25 19:25 Creatine Kinase 373 H CK-MB (CK-2) 2.93 2.96 Troponin I 0.882 0.953 05/19/16 05/19/16 05/20/16 23:26 23:26 10:47 Creatine Kinase 364 H CK-MB (CK-2) 2.80 Troponin I 0.837 0.538 05/23/16 05/23/16 05/23/16 03:07 04:29 04:29 Creatine Kinase 220 H CK-MB (CK-2) 5.23 H Troponin I 1.500 1.640 EKG Comments: Sinus rhythm, no acute ST-T wave changes are noted Impressions: Head CT 05/18/16 22:08 IMPRESSION: MILD CHRONIC CHANGES OF ATROPHY AND MICROVASCULAR ISCHEMIA. NO ACUTE PROCESS. Head MRI 05/21/16 00:00 IMPRESSION: MINIMAL MICROVASCULAR ISCHEMIC CHANGE. OTHERWISE NORMAL STUDY. Chest X-Ray 05/22/16 00:00 IMPRESSION: Improving pneumonia. Assessment & Plan - Diagnosis (1) Elevated troponin Is this a current diagnosis for this admission?: Yes (2) Diabetes type 2, uncontrolled Qualifiers: Diabetes mellitus complication status: with unspecified complications Is this a current diagnosis for this admission?: Yes (3) Acute worsening of stage 3 chronic kidney disease Is this a current diagnosis for this admission?: Yes (4) COPD (chronic obstructive pulmonary disease) Qualifiers: COPD type: unspecified COPD Qualified Code(s): J44.9 - Chronic obstructive pulmonary disease, unspecified Is this a current diagnosis for this admission?: Yes (5) Coronary artery disease Qualifiers: Coronary Disease-Associated Artery/Lesion type: [place] artery [place] vs. transplanted heart: [place] heart Associated angina: without angina Qualified Code(s): I25.10 - Atherosclerotic heart disease of [place] coronary artery without angina pectoris Is this a current diagnosis for this admission?: Yes (6) Hyperlipidemia Qualifiers: Hyperlipidemia type: unspecified Qualified Code(s): E78.5 - Hyperlipidemia, unspecified Is this a current diagnosis for this admission?: Yes (7) HTN (hypertension) Qualifiers: Hypertension type: essential hypertension Qualified Code(s): I10 - Essential (primary) hypertension Is this a current diagnosis for this admission?: Yes - Notes Notes: Elevated troponin I: This is in the non-STEMI range. Most likely related to type II myocardial infarction. Patient has uncontrolled diabetes. Recommend maximizing medical therapy. Due to advanced renal failure, in the absence of any chest pain or significant EKG changes, medical management is being recommended. May consider a nuclear stress test prior to discharge or later on as an outpatient especially if there is symptoms of chest pain. Diabetes: Currently having high blood sugar level. Hyperglycemia can reduce vascular reactivity and can be prothrombotic. Acute on chronic kidney disease: This is a major prognostic factor. Continue current management plans as recommended by the cashier assistant. COPD: Continue current management plans with bronchodilators and steroids as needed. Coronary artery disease: Continue antiplatelet, statin, beta kye therapy. ASTRID inhibitor may be relatively contraindicated. Hyperlipidemia: LDL goal is less than 70. Recommend statin therapy at least intermediate or high dose, of high potency status. Periodic lipid panel and liver panel is indicated. Patient to report any significant muscle discomfort or other side effects. Hypertension: Reasonably well controlled. Blood pressure goal in this patient is 135/85 or less. This was discussed with the patient. Currently blood pressure under reasonable control. Better medication for this patient are ASTRID inhibitor/ARB/beta kye etc. discussed side effects of uncontrolled hypertension and also severe hypotension. - Time Time with patient: 15-25 minutes - CODE STATUS was discussed, patient remains full code. Surrogate decision-maker unchanged. Multiple medical problems were addressed.More than 50% of the time spent coordinating care, discussing management plans with involved caregivers. Management plans discussed with involved personnels. Medical decision making was of moderate complexity. Medications reviewed and adjusted accordingly: Yes
--- NOTE | 2016-05-23 18:31 | PDOC PROGRESS REPORT ---
Subjective Progress Note for:: 05/23/16 Subjective:: Complaints of cough today. Physical Exam Vital Signs: Temp Pulse Resp BP Pulse Ox 97.5 F 85 20 119/78 95 05/23/16 15:59 05/23/16 15:59 05/23/16 15:59 05/23/16 15:59 05/23/16 15:59 Intake & Output 05/22/16 05/23/16 05/24/16 06:59 06:59 06:59 Intake Total 1740 3288 460 Output Total 400 Balance 1740 2888 460 Weight 120.5 kg General appearance: PRESENT: no acute distress Eye exam: PRESENT: conjunctiva pink. ABSENT: scleral icterus Mouth exam: PRESENT: moist, tongue midline Neck exam: ABSENT: JVD Respiratory exam: PRESENT: rhonchi - Coarse rhonchi bilaterally.. ABSENT: rales , wheezes Cardiovascular exam: PRESENT: RRR. ABSENT: diastolic murmur, rubs, systolic murmur GI/Abdominal exam: PRESENT: normal bowel sounds, soft. ABSENT: distended, guarding, mass, organolmegaly, rebound, tenderness Extremities exam: ABSENT: calf tenderness, clubbing, pedal edema Neurological exam: PRESENT: alert, awake, oriented to person, oriented to place , oriented to time, oriented to situation, CN II-XII grossly intact. ABSENT: motor sensory deficit Psychiatric exam: PRESENT: appropriate affect Skin exam: PRESENT: dry, intact, warm. ABSENT: cyanosis, rash Results Laboratory Results: 05/22/16 05:02 05/23/16 03:07 05/23/16 03:07 Sodium 133.4 L Potassium 4.4 Chloride 102 Carbon Dioxide 17 L Anion Gap 14 BUN 87 H D Creatinine 3.41 H Est GFR ( Amer) 22 L Est GFR (Non-Af Amer) 18 L Glucose 451 H* Calcium 8.0 L 05/19/16 05/19/16 05/19/16 11:04 11:04 16:00 Creatine Kinase 442 H 313 H CK-MB (CK-2) 2.71 Troponin I 0.530 05/19/16 05/19/16 05/19/16 16:00 19:25 19:25 Creatine Kinase 373 H CK-MB (CK-2) 2.93 2.96 Troponin I 0.882 0.953 05/19/16 05/19/16 05/20/16 23:26 23:26 10:47 Creatine Kinase 364 H CK-MB (CK-2) 2.80 Troponin I 0.837 0.538 05/23/16 05/23/16 05/23/16 03:07 04:29 04:29 Creatine Kinase 220 H CK-MB (CK-2) 5.23 H Troponin I 1.500 1.640 Impressions: Head CT 05/18/16 22:08 IMPRESSION: MILD CHRONIC CHANGES OF ATROPHY AND MICROVASCULAR ISCHEMIA. NO ACUTE PROCESS. Head MRI 05/21/16 00:00 IMPRESSION: MINIMAL MICROVASCULAR ISCHEMIC CHANGE. OTHERWISE NORMAL STUDY. Chest X-Ray 05/22/16 00:00 IMPRESSION: Improving pneumonia. Assessment & Plan - Diagnosis (1) Pneumonia Qualifiers: Pneumonia type: due to unspecified organism Laterality: right Lung location: unspecified part of lung Qualified Code(s): J18.9 - Pneumonia, unspecified organism Is this a current diagnosis for this admission?: YesPlan: We'll continue with Levaquin and Rocephin. Patient's cultures are negative so far. (2) COPD exacerbation Is this a current diagnosis for this admission?: YesPlan: Continue with IV steroids and nebulizers. (3) Acute worsening of stage 3 chronic kidney disease Is this a current diagnosis for this admission?: YesPlan: Patient's creatinine has remained elevated. (4) Elevated troponin Is this a current diagnosis for this admission?: YesPlan: This most likely secondary to his chronic renal failure. There is some concern about whether this could represent a pulmonary embolism although it's unlikely given the fact that his echocardiogram earlier showed no evidence for right ventricular strain. (5) Diabetes type 2, uncontrolled Qualifiers: Diabetes mellitus complication status: with unspecified complications Is this a current diagnosis for this admission?: YesPlan: Continue with insulin (6) Leukocytosis Qualifiers: Leukocytosis type: unspecified Qualified Code(s): D72.829 - Elevated white blood cell count, unspecified Is this a current diagnosis for this admission?: YesPlan: Secondary to pneumonia. (7) GERD (gastroesophageal reflux disease) Qualifiers: Esophagitis presence: without esophagitis Qualified Code(s): K21.9 - Gastro-esophageal reflux disease without esophagitis Is this a current diagnosis for this admission?: YesPlan: Asymptomatic (8) Hyperlipidemia Qualifiers: Hyperlipidemia type: unspecified Qualified Code(s): E78.5 - Hyperlipidemia, unspecified Is this a current diagnosis for this admission?: YesPlan: Continue with Lipitor. (9) HTN (hypertension) Qualifiers: Hypertension type: essential hypertension Qualified Code(s): I10 - Essential (primary) hypertension Is this a current diagnosis for this admission?: YesPlan: Continue metoprolol and Norvasc. (10) Coronary artery disease Qualifiers: Coronary Disease-Associated Artery/Lesion type: [place] artery [place] vs. transplanted heart: [place] heart Associated angina: without angina Qualified Code(s): I25.10 - Atherosclerotic heart disease of [place] coronary artery without angina pectoris Is this a current diagnosis for this admission?: YesPlan: Continue with aspirin, Plavix, metoprolol, nitroglycerin. - Time Time Spent with patient: 25-34 minutes - Inpatient Certification Medical Necessity: Need for IV Antibiotics
[2016-05-23] MEDS: TAMSULOSIN HCL 0.4 MG CAP.SR.24H PO SCH (18:47)
[2016-05-23] MEDS: CEFTRIAXONE 1 GM/D5W RTU 1 GM/50 ML RTUPB IV SCH (21:23)
[2016-05-23] MEDS: ATORVASTATIN CALCIUM 40 MG TABLET PO SCH (21:24)
[2016-05-23] MEDS: INSULIN GLARGINE,HUM.REC.ANLOG 1,000 UNIT/10 ML UNIT SUBCUT SCH (21:24)
[2016-05-23] MEDS ORDERED: INSULIN GLARGINE,HUM.REC.ANLOG 1,000 UNIT/10 ML UNIT SUBCUT SCH (22:00)
[2016-05-24] MEDS: NORMAL SALINE 1000 ML 1,000 ML IV PRN (00:03)
[2016-05-24] MEDS: IPRATROPIUM BROMIDE 0.02% NEB 0.5 MG/2.5 ML AMPUL NEB SCH ×4 (01:57→20:08)
[2016-05-24] MEDS: LEVALBUTEROL HCL NEB 1.25 MG/3 ML AMPUL NEB SCH ×4 (01:57→20:08)
[2016-05-24] MEDS: METHYLPREDNISOLONE INJ 125 MG/2 ML SDV IV SCH ×3 (06:16→23:40)
[2016-05-24 06:49] LABS: HEMATOCRIT 32.7 % (37.9-51.0); HEMOGLOBIN 11.1 g/dL (13.5-17.0); HGB HCT DIFFERENCE 0.6; MEAN CORPUSCULAR HEMOGLOBIN 29.7 pg (27.0-33.4); MEAN CORPUSCULAR VOLUME 87 fl (80-97); RED BLOOD COUNT 3.74 10^6/uL (4.35-5.55); RED CELL DISTRIBUTION WIDTH 13.6 % (11.5-14.0); WHITE BLOOD COUNT 16.2 10^3/uL (4.0-10.5)
[2016-05-24 06:58] LABS: ANION GAP 14 (5-19); BLOOD UREA NITROGEN 98 mg/dL (7-20); CALCIUM 7.7 mg/dL (8.4-10.2); CARBON DIOXIDE 14 mmol/L (22-30); CHLORIDE 105 mmol/L (98-107); CREATININE RESULT 3.71 mg/dL (0.52-1.25); GLUCOSE 265 mg/dL (75-110); MAGNESIUM 2.6 mg/dL (1.6-2.3); POTASSIUM 4.2 mmol/L (3.6-5.0); SODIUM 132.6 mmol/L (137-145)
[2016-05-24 07:17] LABS: BAND NEUTROPHILS % (MANUAL) 1 % (3-5); BASOPHILS % (MANUAL) 0 % (0-2); EOSINOPHILS % (MANUAL) 0 % (0-6); LYMPHOCYTES % (MANUAL) 0 % (13-45); RBC MORPHOLOGY COMMENT NORMO-CYTIC/CHROMIC; TOTAL CELLS COUNTED 100
[2016-05-24] MEDS ORDERED: INSULIN GLARGINE,HUM.REC.ANLOG 1,000 UNIT/10 ML UNIT SUBCUT SCH (08:00)
[2016-05-24] MEDS: NITROGLYCERIN 5 MG (0.2 MG/HR) PATCH.TD24 TD SCH (09:52)
[2016-05-24] MEDS: ASPIRIN 81 MG TABLET, ENT COATED PO SCH (09:53)
[2016-05-24] MEDS: DOCUSATE SODIUM 100 MG CAPSULE PO SCH ×2 (09:53→17:12)
[2016-05-24] MEDS: INSULIN GLARGINE,HUM.REC.ANLOG 1,000 UNIT/10 ML UNIT SUBCUT SCH ×2 (09:53→23:41)
[2016-05-24] MEDS: AMLODIPINE BESYLATE 5 MG TABLET PO SCH ×2 (09:53→23:37)
[2016-05-24] MEDS: CLOPIDOGREL BISULFATE 75 MG TABLET PO SCH (09:53)
[2016-05-24] MEDS: METOPROLOL TARTRATE 100 MG TABLET PO SCH ×2 (09:53→23:38)
[2016-05-24] MEDS: GABAPENTIN 100 MG CAPSULE PO SCH ×2 (09:53→12:37)
[2016-05-24] MEDS: HEPARIN SOD (PORCINE) 5,000 UNIT/ML 1 ML SYRINGE SUBCUT SCH ×2 (09:54→23:42)
[2016-05-24] MEDS: INSULIN LISPRO 100 UNIT/ML 3 ML VIAL SUBCUT SCH ×2 (09:54→17:12)
[2016-05-24] MEDS: INSULIN LISPRO 100 UNIT/ML 3 ML VIAL SUBCUT PRN ×2 (12:38→23:41)
[2016-05-24] MEDS: TAMSULOSIN HCL 0.4 MG CAP.SR.24H PO SCH (17:12)
--- NOTE | 2016-05-24 17:44 | PDOC PROGRESS REPORT ---
Subjective Progress Note for:: 05/24/16 Subjective:: Complaints of cough today. Physical Exam Vital Signs: Temp Pulse Resp BP Pulse Ox 97.7 F 81 18 131/70 H 94 05/24/16 04:00 05/24/16 14:08 05/24/16 14:08 05/24/16 04:00 05/24/16 09:02 Intake & Output 05/23/16 05/24/16 05/25/16 06:59 06:59 06:59 Intake Total 3288 2702 1290 Output Total 400 1250 550 Balance 2888 1452 740 Weight 120.5 kg 120.5 kg General appearance: PRESENT: no acute distress Eye exam: PRESENT: conjunctiva pink. ABSENT: scleral icterus Mouth exam: PRESENT: moist, tongue midline Neck exam: ABSENT: carotid bruit, JVD, lymphadenopathy, thyromegaly Respiratory exam: PRESENT: rhonchi - Coarse rhonchi bilaterally.. ABSENT: rales , wheezes Cardiovascular exam: PRESENT: RRR. ABSENT: diastolic murmur, rubs, systolic murmur GI/Abdominal exam: PRESENT: normal bowel sounds, soft. ABSENT: distended, guarding, mass, organolmegaly, rebound, tenderness Extremities exam: ABSENT: calf tenderness, clubbing, pedal edema Neurological exam: PRESENT: alert, awake, oriented to person, oriented to place , oriented to time, oriented to situation, CN II-XII grossly intact. ABSENT: motor sensory deficit Psychiatric exam: PRESENT: appropriate affect Results Laboratory Results: 05/24/16 06:15 05/24/16 06:15 05/24/16 05/24/16 06:15 06:15 WBC 16.2 H RBC 3.74 L Hgb 11.1 L Hct 32.7 L MCV 87 MCH 29.7 MCHC 34.0 RDW 13.6 Plt Count 260 Seg Neutrophils % Not Reportable Lymphocytes % Not Reportable Monocytes % Not Reportable Eosinophils % Not Reportable Basophils % Not Reportable Absolute Neutrophils Not Reportable Absolute Lymphocytes Not Reportable Absolute Monocytes Not Reportable Absolute Eosinophils Not Reportable Absolute Basophils Not Reportable Sodium 132.6 L Potassium 4.2 Chloride 105 Carbon Dioxide 14 L Anion Gap 14 BUN 98 H Creatinine 3.71 H Est GFR ( Amer) 20 L Est GFR (Non-Af Amer) 17 L Glucose 265 H Calcium 7.7 L Magnesium 2.6 H 05/19/16 05/19/16 05/19/16 11:04 11:04 16:00 Creatine Kinase 442 H 313 H CK-MB (CK-2) 2.71 Troponin I 0.530 05/19/16 05/19/16 05/19/16 16:00 19:25 19:25 Creatine Kinase 373 H CK-MB (CK-2) 2.93 2.96 Troponin I 0.882 0.953 05/19/16 05/19/16 05/20/16 23:26 23:26 10:47 Creatine Kinase 364 H CK-MB (CK-2) 2.80 Troponin I 0.837 0.538 05/23/16 05/23/16 05/23/16 03:07 04:29 04:29 Creatine Kinase 220 H CK-MB (CK-2) 5.23 H Troponin I 1.500 1.640 Impressions: Head CT 05/18/16 22:08 IMPRESSION: MILD CHRONIC CHANGES OF ATROPHY AND MICROVASCULAR ISCHEMIA. NO ACUTE PROCESS. Head MRI 05/21/16 00:00 IMPRESSION: MINIMAL MICROVASCULAR ISCHEMIC CHANGE. OTHERWISE NORMAL STUDY. Chest X-Ray 05/22/16 00:00 IMPRESSION: Improving pneumonia. Assessment & Plan - Diagnosis (1) Pneumonia Qualifiers: Pneumonia type: due to unspecified organism Laterality: right Lung location: unspecified part of lung Qualified Code(s): J18.9 - Pneumonia, unspecified organism Is this a current diagnosis for this admission?: YesPlan: We'll continue with Levaquin and Rocephin. Patient's cultures are negative so far. (2) COPD exacerbation Is this a current diagnosis for this admission?: YesPlan: Continue with IV steroids and nebulizers. (3) Acute worsening of stage 3 chronic kidney disease Is this a current diagnosis for this admission?: YesPlan: Patient's creatinine has remained elevated. (4) Elevated troponin Is this a current diagnosis for this admission?: YesPlan: This most likely secondary to his chronic renal failure. There is some concern about whether this could represent a pulmonary embolism although it's unlikely given the fact that his echocardiogram earlier showed no evidence for right ventricular strain. (5) Diabetes type 2, uncontrolled Qualifiers: Diabetes mellitus complication status: with unspecified complications Is this a current diagnosis for this admission?: YesPlan: Continue with insulin (6) Leukocytosis Qualifiers: Leukocytosis type: unspecified Qualified Code(s): D72.829 - Elevated white blood cell count, unspecified Is this a current diagnosis for this admission?: YesPlan: Secondary to pneumonia. (7) GERD (gastroesophageal reflux disease) Qualifiers: Esophagitis presence: without esophagitis Qualified Code(s): K21.9 - Gastro-esophageal reflux disease without esophagitis Is this a current diagnosis for this admission?: YesPlan: Asymptomatic (8) Hyperlipidemia Qualifiers: Hyperlipidemia type: unspecified Qualified Code(s): E78.5 - Hyperlipidemia, unspecified Is this a current diagnosis for this admission?: YesPlan: Continue with Lipitor. (9) HTN (hypertension) Qualifiers: Hypertension type: essential hypertension Qualified Code(s): I10 - Essential (primary) hypertension Is this a current diagnosis for this admission?: YesPlan: Continue metoprolol and Norvasc. (10) Coronary artery disease Qualifiers: Coronary Disease-Associated Artery/Lesion type: [place] artery [place] vs. transplanted heart: [place] heart Associated angina: without angina Qualified Code(s): I25.10 - Atherosclerotic heart disease of [place] coronary artery without angina pectoris Is this a current diagnosis for this admission?: YesPlan: Continue with aspirin, Plavix, metoprolol, nitroglycerin. - Time Time Spent with patient: 25-34 minutes - Inpatient Certification Medical Necessity: Need for IV Antibiotics - Plan Summary Plan Summary: If he continues to improve hopefully we can discharge home tomorrow.
--- NOTE | 2016-05-24 20:45 | PDOC PROGRESS REPORT ---
Subjective Progress Note for:: 05/24/16 Subjective:: Patient seems to be doing better with gradual improvement. Pt is denying any chest arm or neck discomfort. Patient denying any PND, orthopnea. Patient denied any sustained palpitations, dizziness, syncope, near syncope. Patient denying any fever chills. Patient denying any other significant discomfort. Patient is maintaining sinus rhythm. Patient however still has shortness of breath on minimal exertion. He was noted to be wheezing today. Review of systems: Rest review of systems negative. Medications: Medications have been reviewed. Physical Exam Vital Signs: Temp Pulse Resp BP Pulse Ox 97.7 F 91 18 131/70 H 94 05/24/16 04:00 05/24/16 20:08 05/24/16 20:08 05/24/16 04:00 05/24/16 20:08 Intake & Output 05/23/16 05/24/16 05/25/16 06:59 06:59 06:59 Intake Total 3288 2702 1290 Output Total 400 1250 550 Balance 2888 1452 740 Weight 120.5 kg 120.5 kg Exam: GENERAL: well-nourished and in no acute distress. Alert and oriented x3 HEAD: Atraumatic, normocephalic. EYES: Pupils equal round and reactive to light, extraocular movements intact, sclera anicteric, conjunctiva are normal. ENT: TMs normal, nares patent, oropharynx clear without exudates. Moist mucous membranes. No oral ulcerations or bleeding gums noted NECK: supple without lymphadenopathy. Trachea is central. No cervical or axillary lymphadenopathy noted. Carotids are 2+, JVD WNL LUNGS: Respiration seems nonlabored, no significant accessory muscle action noted. Bilateral wheezes rales or rhonchi noted. No significant dullness noted on percussion. CHEST: Palpation of the chest wall shows no significant chest wall tenderness. No other significant abnormalities noted. HEART: [place] [employer]ER, No PSH, 1/6 [place] aortic area, 1/6 [place] systolic murmur mitral area, no rubs, no gallops. ABDOMEN: Soft, no significant tenderness appreciated, normoactive bowel sounds. No guarding, no rebound. No rigidity noted . No masses appreciated. EXTREMITIES: Pedal pulses are 1-2+, no calf tenderness noted. No clubbing or cyanosis.trace to 1+ pedal edema noted NEUROLOGICAL: Focused neurological exam showed no significant neurologic deficit. Normal speech, no focal weakness appreciated. PSYCH: Normal mood, normal affect. Judgment and insight within normal limits. SKIN: No significant ecchymosis, rash, ulcerations or signs of pruritus noted. MUSCULOSKELETAL EXAM: No significant joint swelling noted. Results Laboratory Results: 05/24/16 06:15 05/24/16 06:15 05/24/16 05/24/16 06:15 06:15 WBC 16.2 H RBC 3.74 L Hgb 11.1 L Hct 32.7 L MCV 87 MCH 29.7 MCHC 34.0 RDW 13.6 Plt Count 260 Seg Neutrophils % Not Reportable Lymphocytes % Not Reportable Monocytes % Not Reportable Eosinophils % Not Reportable Basophils % Not Reportable Absolute Neutrophils Not Reportable Absolute Lymphocytes Not Reportable Absolute Monocytes Not Reportable Absolute Eosinophils Not Reportable Absolute Basophils Not Reportable Sodium 132.6 L Potassium 4.2 Chloride 105 Carbon Dioxide 14 L Anion Gap 14 BUN 98 H Creatinine 3.71 H Est GFR ( Amer) 20 L Est GFR (Non-Af Amer) 17 L Glucose 265 H Calcium 7.7 L Magnesium 2.6 H 05/19/16 05/19/16 05/19/16 11:04 11:04 16:00 Creatine Kinase 442 H 313 H CK-MB (CK-2) 2.71 Troponin I 0.530 05/19/16 05/19/16 05/19/16 16:00 19:25 19:25 Creatine Kinase 373 H CK-MB (CK-2) 2.93 2.96 Troponin I 0.882 0.953 05/19/16 05/19/16 05/20/16 23:26 23:26 10:47 Creatine Kinase 364 H CK-MB (CK-2) 2.80 Troponin I 0.837 0.538 05/23/16 05/23/16 05/23/16 03:07 04:29 04:29 Creatine Kinase 220 H CK-MB (CK-2) 5.23 H Troponin I 1.500 1.640 Impressions: Head CT 05/18/16 22:08 IMPRESSION: MILD CHRONIC CHANGES OF ATROPHY AND MICROVASCULAR ISCHEMIA. NO ACUTE PROCESS. Head MRI 05/21/16 00:00 IMPRESSION: MINIMAL MICROVASCULAR ISCHEMIC CHANGE. OTHERWISE NORMAL STUDY. Chest X-Ray 05/22/16 00:00 IMPRESSION: Improving pneumonia. Assessment & Plan - Diagnosis (1) Elevated troponin Is this a current diagnosis for this admission?: Yes (2) Diabetes type 2, uncontrolled Qualifiers: Diabetes mellitus complication status: with unspecified complications Is this a current diagnosis for this admission?: Yes (3) Acute worsening of stage 3 chronic kidney disease Is this a current diagnosis for this admission?: Yes (4) COPD (chronic obstructive pulmonary disease) Qualifiers: COPD type: unspecified COPD Qualified Code(s): J44.9 - Chronic obstructive pulmonary disease, unspecified Is this a current diagnosis for this admission?: Yes (5) Coronary artery disease Qualifiers: Coronary Disease-Associated Artery/Lesion type: [place] artery [place] vs. transplanted heart: [place] heart Associated angina: without angina Qualified Code(s): I25.10 - Atherosclerotic heart disease of [place] coronary artery without angina pectoris Is this a current diagnosis for this admission?: Yes (6) Hyperlipidemia Qualifiers: Hyperlipidemia type: unspecified Qualified Code(s): E78.5 - Hyperlipidemia, unspecified Is this a current diagnosis for this admission?: Yes (7) HTN (hypertension) Qualifiers: Hypertension type: essential hypertension Qualified Code(s): I10 - Essential (primary) hypertension Is this a current diagnosis for this admission?: Yes - Notes Notes: Elevated troponin I: This is in the non-STEMI range. Most likely related to type II myocardial infarction. Patient has uncontrolled diabetes. Recommend maximizing medical therapy. Due to advanced renal failure, in the absence of any chest pain or significant EKG changes, medical management is being recommended. May consider a nuclear stress test prior to discharge or later on as an outpatient especially if there is symptoms of chest pain. Currently on questioning patient denying any chest pain. Diabetes: Currently having high blood sugar level. Hyperglycemia can reduce vascular reactivity and can be prothrombotic. Acute on chronic kidney disease: This is a major prognostic factor. Continue current management plans as recommended by the [employer]. COPD: Continue current management plans with bronchodilators and steroids as needed. Patient having significant wheezing today. Patient getting bronchodilator therapy. Coronary artery disease: Continue antiplatelet, statin, beta kye therapy. ASTRID inhibitor may be relatively contraindicated. Hyperlipidemia: LDL goal is less than 70. Recommend statin therapy at least intermediate or high dose, of high potency status. Periodic lipid panel and liver panel is indicated. Patient to report any significant muscle discomfort or other side effects. Hypertension: Reasonably well controlled. Blood pressure goal in this patient is 135/85 or less. This was discussed with the patient. Currently blood pressure under reasonable control. - Time Time with patient: 15-25 minutes - CODE STATUS was discussed, patient remains full code. Surrogate decision-maker unchanged. Multiple medical problems were addressed.More than 50% of the time spent coordinating care, discussing management plans with involved caregivers. Management plans discussed with involved personnels. Medical decision making was of moderate complexity.
[2016-05-24] MEDS: LEVOFLOXACIN 750 MG TABLET PO SCH (23:38)
[2016-05-24] MEDS: ATORVASTATIN CALCIUM 40 MG TABLET PO SCH (23:39)
[2016-05-24] MEDS: CEFTRIAXONE 1 GM/D5W RTU 1 GM/50 ML RTUPB IV SCH (23:43)
[2016-05-25] MEDS: IPRATROPIUM BROMIDE 0.02% NEB 0.5 MG/2.5 ML AMPUL NEB SCH ×4 (02:12→20:38)
[2016-05-25] MEDS: LEVALBUTEROL HCL NEB 1.25 MG/3 ML AMPUL NEB SCH ×4 (02:12→20:39)
[2016-05-25] MEDS: NORMAL SALINE 1000 ML 1,000 ML IV PRN ×2 (06:28→22:07)
[2016-05-25] MEDS: METHYLPREDNISOLONE INJ 125 MG/2 ML SDV IV SCH ×2 (06:32→18:59)
[2016-05-25 07:26] LABS: ANION GAP 14 (5-19); BLOOD UREA NITROGEN 100 mg/dL (7-20); CALCIUM 7.9 mg/dL (8.4-10.2); CARBON DIOXIDE 16 mmol/L (22-30); CHLORIDE 106 mmol/L (98-107); GLUCOSE 274 mg/dL (75-110); SODIUM 135.8 mmol/L (137-145)
[2016-05-25 07:28] LABS: HEMATOCRIT 34.8 % (37.9-51.0); HEMOGLOBIN 11.7 g/dL (13.5-17.0); HGB HCT DIFFERENCE 0.3; MEAN CORPUSCULAR HEMOGLOBIN 29.3 pg (27.0-33.4); MEAN CORPUSCULAR HGB CONC 33.8 g/dL (32.0-36.0); MEAN CORPUSCULAR VOLUME 87 fl (80-97); RED BLOOD COUNT 4.01 10^6/uL (4.35-5.55); RED CELL DISTRIBUTION WIDTH 13.8 % (11.5-14.0); WHITE BLOOD COUNT 15.1 10^3/uL (4.0-10.5)
[2016-05-25 07:29] LABS: BASOPHILS % (MANUAL) 0 % (0-2); EOSINOPHILS % (MANUAL) 0 % (0-6); LYMPHOCYTES % (MANUAL) 1 % (13-45); TOTAL CELLS COUNTED 100
[2016-05-25 07:30] LABS: RBC MORPHOLOGY COMMENT NORMO-CYTIC/CHROMIC; TOXIC GRANULATION SLIGHT
[2016-05-25] MEDS: ONDANSETRON HCL INJ/PF 4 MG/2 ML SDV IV PRN ×2 (08:40→20:44)
[2016-05-25] MEDS: NITROGLYCERIN 5 MG (0.2 MG/HR) PATCH.TD24 TD SCH (11:00)
[2016-05-25] MEDS: INSULIN GLARGINE,HUM.REC.ANLOG 1,000 UNIT/10 ML UNIT SUBCUT SCH ×2 (12:10→22:09)
[2016-05-25] MEDS: DOCUSATE SODIUM 100 MG CAPSULE PO SCH ×2 (12:11→17:43)
[2016-05-25] MEDS: HEPARIN SOD (PORCINE) 5,000 UNIT/ML 1 ML SYRINGE SUBCUT SCH ×2 (12:11→22:09)
[2016-05-25] MEDS: GABAPENTIN 100 MG CAPSULE PO SCH (12:11)
[2016-05-25] MEDS: METOPROLOL TARTRATE 100 MG TABLET PO SCH ×2 (12:11→22:11)
[2016-05-25] MEDS: METOCLOPRAMIDE HCL INJ/PF 10 MG/2 ML SDV IV SCH ×3 (12:12→23:08)
[2016-05-25] MEDS: CLOPIDOGREL BISULFATE 75 MG TABLET PO SCH (12:12)
[2016-05-25] MEDS: ASPIRIN 81 MG TABLET, ENT COATED PO SCH (12:12)
[2016-05-25] MEDS: INSULIN LISPRO 100 UNIT/ML 3 ML VIAL SUBCUT SCH ×2 (12:12→18:59)
[2016-05-25] MEDS: AMLODIPINE BESYLATE 5 MG TABLET PO SCH ×2 (12:12→22:11)
--- NOTE | 2016-05-25 15:05 | PDOC PROGRESS REPORT ---
Subjective Progress Note for:: 05/25/16 Subjective:: Has had some nausea and vomiting this morning. Physical Exam Vital Signs: Temp Pulse Resp BP Pulse Ox 98.0 F 107 H 20 154/84 H 92 05/25/16 12:00 05/25/16 12:00 05/25/16 12:00 05/25/16 12:00 05/25/16 12:00 Intake & Output 05/24/16 05/25/16 05/26/16 06:59 06:59 06:59 Intake Total 2702 2982 300 Output Total 1250 1550 800 Balance 1452 1432 -500 Weight 120.5 kg 120.9 kg General appearance: PRESENT: no acute distress Eye exam: PRESENT: conjunctiva pink. ABSENT: scleral icterus Mouth exam: PRESENT: moist, tongue midline Neck exam: ABSENT: JVD Respiratory exam: PRESENT: rhonchi - Coarse rhonchi bilaterally.. ABSENT: rales , wheezes Cardiovascular exam: PRESENT: RRR. ABSENT: diastolic murmur, rubs, systolic murmur GI/Abdominal exam: PRESENT: normal bowel sounds, soft. ABSENT: distended, guarding, mass, organolmegaly, rebound, tenderness Extremities exam: ABSENT: calf tenderness, clubbing, pedal edema Neurological exam: PRESENT: alert, awake, oriented to person, oriented to place , oriented to time, oriented to situation, CN II-XII grossly intact. ABSENT: motor sensory deficit Psychiatric exam: PRESENT: appropriate affect Skin exam: PRESENT: dry, intact, warm. ABSENT: cyanosis, rash Results Laboratory Results: 05/25/16 06:34 05/25/16 06:34 05/25/16 05/25/16 06:34 06:34 WBC 15.1 H RBC 4.01 L Hgb 11.7 L Hct 34.8 L MCV 87 MCH 29.3 MCHC 33.8 RDW 13.8 Plt Count 288 Seg Neutrophils % Not Reportable Lymphocytes % Not Reportable Monocytes % Not Reportable Eosinophils % Not Reportable Basophils % Not Reportable Absolute Neutrophils Not Reportable Absolute Lymphocytes Not Reportable Absolute Monocytes Not Reportable Absolute Eosinophils Not Reportable Absolute Basophils Not Reportable Sodium 135.8 L Potassium 4.0 Chloride 106 Carbon Dioxide 16 L Anion Gap 14 BUN 100 H Creatinine 3.20 H Est GFR ( Amer) 24 L Est GFR (Non-Af Amer) 20 L Glucose 274 H Calcium 7.9 L 05/19/16 05/19/16 05/19/16 11:04 11:04 16:00 Creatine Kinase 442 H 313 H CK-MB (CK-2) 2.71 Troponin I 0.530 05/19/16 05/19/16 05/19/16 16:00 19:25 19:25 Creatine Kinase 373 H CK-MB (CK-2) 2.93 2.96 Troponin I 0.882 0.953 05/19/16 05/19/16 05/20/16 23:26 23:26 10:47 Creatine Kinase 364 H CK-MB (CK-2) 2.80 Troponin I 0.837 0.538 05/23/16 05/23/16 05/23/16 03:07 04:29 04:29 Creatine Kinase 220 H CK-MB (CK-2) 5.23 H Troponin I 1.500 1.640 Impressions: Head CT 05/18/16 22:08 IMPRESSION: MILD CHRONIC CHANGES OF ATROPHY AND MICROVASCULAR ISCHEMIA. NO ACUTE PROCESS. Head MRI 05/21/16 00:00 IMPRESSION: MINIMAL MICROVASCULAR ISCHEMIC CHANGE. OTHERWISE NORMAL STUDY. Chest X-Ray 05/22/16 00:00 IMPRESSION: Improving pneumonia. Assessment & Plan - Diagnosis (1) Pneumonia Qualifiers: Pneumonia type: due to unspecified organism Laterality: right Lung location: unspecified part of lung Qualified Code(s): J18.9 - Pneumonia, unspecified organism Is this a current diagnosis for this admission?: YesPlan: We'll continue with Levaquin and Rocephin. Patient's cultures are negative so far. (2) COPD exacerbation Is this a current diagnosis for this admission?: YesPlan: Continue with steroids and nebulizers. (3) Acute worsening of stage 3 chronic kidney disease Is this a current diagnosis for this admission?: YesPlan: Patient's creatinine has remained elevated. (4) Elevated troponin Is this a current diagnosis for this admission?: YesPlan: This most likely secondary to his chronic renal failure. There is some concern about whether this could represent a pulmonary embolism although it's unlikely given the fact that his echocardiogram earlier showed no evidence for right ventricular strain. (5) Diabetes type 2, uncontrolled Qualifiers: Diabetes mellitus complication status: with unspecified complications Is this a current diagnosis for this admission?: YesPlan: Continue with insulin (6) Leukocytosis Qualifiers: Leukocytosis type: unspecified Qualified Code(s): D72.829 - Elevated white blood cell count, unspecified Is this a current diagnosis for this admission?: YesPlan: Secondary to pneumonia. (7) GERD (gastroesophageal reflux disease) Qualifiers: Esophagitis presence: without esophagitis Qualified Code(s): K21.9 - Gastro-esophageal reflux disease without esophagitis Is this a current diagnosis for this admission?: YesPlan: Patient has had some nausea vomiting this morning. Will add on Reglan as he may have diabetic gastroparesis. Will also check KUB. (8) Hyperlipidemia Qualifiers: Hyperlipidemia type: unspecified Qualified Code(s): E78.5 - Hyperlipidemia, unspecified Is this a current diagnosis for this admission?: YesPlan: Continue with Lipitor. (9) HTN (hypertension) Qualifiers: Hypertension type: essential hypertension Qualified Code(s): I10 - Essential (primary) hypertension Is this a current diagnosis for this admission?: YesPlan: Continue metoprolol and Norvasc. (10) Coronary artery disease Qualifiers: Coronary Disease-Associated Artery/Lesion type: [place] artery [place] vs. transplanted heart: [place] heart Associated angina: without angina Qualified Code(s): I25.10 - Atherosclerotic heart disease of [place] coronary artery without angina pectoris Is this a current diagnosis for this admission?: YesPlan: Continue with aspirin, Plavix, metoprolol, nitroglycerin. - Time Time Spent with patient: 25-34 minutes - Inpatient Certification Medical Necessity: Need Close Monitoring Due to Risk of Patient Decompensation
[2016-05-25] MEDS: TAMSULOSIN HCL 0.4 MG CAP.SR.24H PO SCH (17:43)
--- NOTE | 2016-05-25 20:20 | PDOC PROGRESS REPORT ---
Subjective Progress Note for:: 05/25/16 Subjective:: Patient seems to be doing better with gradual improvement. Pt is denying any chest arm or neck discomfort. Patient denying any PND, orthopnea. Patient denied any sustained palpitations, dizziness, syncope, near syncope. Patient denying any fever chills. Patient denying any other significant discomfort. Patient is maintaining sinus rhythm. Patient however still has shortness of breath on minimal exertion. Patient today noted to have some nausea and vomiting.. Review of systems: Rest review of systems negative. Medications: Medications have been reviewed. Physical Exam Vital Signs: Temp Pulse Resp BP Pulse Ox 98.1 F 103 H 20 147/80 H 97 05/25/16 16:00 05/25/16 16:00 05/25/16 16:00 05/25/16 16:00 05/25/16 16:00 Intake & Output 05/24/16 05/25/16 05/26/16 06:59 06:59 06:59 Intake Total 2702 2982 1440 Output Total 1250 1550 2600 Balance 1452 1432 -1160 Weight 120.5 kg 120.9 kg Exam: GENERAL: well-nourished and in no acute distress. Alert and oriented x3 HEAD: Atraumatic, normocephalic. EYES: Pupils equal round and reactive to light, extraocular movements intact, sclera anicteric, conjunctiva are normal. ENT: TMs normal, nares patent, oropharynx clear without exudates. Moist mucous membranes. No oral ulcerations or bleeding gums noted NECK: supple without lymphadenopathy. Trachea is central. No cervical or axillary lymphadenopathy noted. Carotids are 2+, JVD WNL LUNGS: Respiration seems nonlabored, no significant accessory muscle action noted. Breath sounds clear to auscultation bilaterally and equal noted. No wheezes rales or rhonchi noted. No significant dullness noted on percussion. CHEST: Palpation of the chest wall shows no significant chest wall tenderness. No other significant abnormalities noted. 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 ABDOMEN: Soft, no significant tenderness appreciated, normoactive bowel sounds. No guarding, no rebound. No rigidity noted . No masses appreciated. EXTREMITIES: Pedal pulses are 1-2+, no calf tenderness noted. No clubbing or cyanosis.trace to 1+ pedal edema noted NEUROLOGICAL: Focused neurological exam showed no significant neurologic deficit. Normal speech, no focal weakness appreciated. PSYCH: Normal mood, normal affect. Judgment and insight within normal limits. SKIN: No significant ecchymosis, rash, ulcerations or signs of pruritus noted. MUSCULOSKELETAL EXAM: No significant joint swelling noted. Results Laboratory Results: 05/25/16 06:34 05/25/16 06:34 05/25/16 05/25/16 06:34 06:34 WBC 15.1 H RBC 4.01 L Hgb 11.7 L Hct 34.8 L MCV 87 MCH 29.3 MCHC 33.8 RDW 13.8 Plt Count 288 Seg Neutrophils % Not Reportable Lymphocytes % Not Reportable Monocytes % Not Reportable Eosinophils % Not Reportable Basophils % Not Reportable Absolute Neutrophils Not Reportable Absolute Lymphocytes Not Reportable Absolute Monocytes Not Reportable Absolute Eosinophils Not Reportable Absolute Basophils Not Reportable Sodium 135.8 L Potassium 4.0 Chloride 106 Carbon Dioxide 16 L Anion Gap 14 BUN 100 H Creatinine 3.20 H Est GFR ( Amer) 24 L Est GFR (Non-Af Amer) 20 L Glucose 274 H Calcium 7.9 L 05/19/16 05/19/16 05/19/16 11:04 11:04 16:00 Creatine Kinase 442 H 313 H CK-MB (CK-2) 2.71 Troponin I 0.530 05/19/16 05/19/16 05/19/16 16:00 19:25 19:25 Creatine Kinase 373 H CK-MB (CK-2) 2.93 2.96 Troponin I 0.882 0.953 05/19/16 05/19/16 05/20/16 23:26 23:26 10:47 Creatine Kinase 364 H CK-MB (CK-2) 2.80 Troponin I 0.837 0.538 05/23/16 05/23/16 05/23/16 03:07 04:29 04:29 Creatine Kinase 220 H CK-MB (CK-2) 5.23 H Troponin I 1.500 1.640 Impressions: Head CT 05/18/16 22:08 IMPRESSION: MILD CHRONIC CHANGES OF ATROPHY AND MICROVASCULAR ISCHEMIA. NO ACUTE PROCESS. Head MRI 05/21/16 00:00 IMPRESSION: MINIMAL MICROVASCULAR ISCHEMIC CHANGE. OTHERWISE NORMAL STUDY. Chest X-Ray 05/22/16 00:00 IMPRESSION: Improving pneumonia. KUB X-Ray 05/25/16 00:00 IMPRESSION: Gaseous distention of the stomach. Question gastroparesis or gastric outlet obstruction. No dilated small bowel loops worrisome for small bowel obstruction. Moderate stool and gas throughout the colon. Assessment & Plan - Diagnosis (1) Elevated troponin Is this a current diagnosis for this admission?: Yes (2) Diabetes type 2, uncontrolled Qualifiers: Diabetes mellitus complication status: with unspecified complications Is this a current diagnosis for this admission?: Yes (3) Acute worsening of stage 3 chronic kidney disease Is this a current diagnosis for this admission?: Yes (4) COPD (chronic obstructive pulmonary disease) Qualifiers: COPD type: unspecified COPD Qualified Code(s): J44.9 - Chronic obstructive pulmonary disease, unspecified Is this a current diagnosis for this admission?: Yes (5) Coronary artery disease Qualifiers: Coronary Disease-Associated Artery/Lesion type: [place] artery [place] vs. transplanted heart: [place] heart Associated angina: without angina Qualified Code(s): I25.10 - Atherosclerotic heart disease of [place] coronary artery without angina pectoris Is this a current diagnosis for this admission?: Yes (6) Hyperlipidemia Qualifiers: Hyperlipidemia type: unspecified Qualified Code(s): E78.5 - Hyperlipidemia, unspecified Is this a current diagnosis for this admission?: Yes (7) HTN (hypertension) Qualifiers: Hypertension type: essential hypertension Qualified Code(s): I10 - Essential (primary) hypertension Is this a current diagnosis for this admission?: Yes - Notes Notes: Patient being managed medically for elevated troponin I and coronary artery disease. Chronic kidney disease: Currently stable. Diabetes: Currently under better control. COPD: Improved. Patient has less wheezing. Dyslipidemia: LDL goal less than 70. Hypertension: Blood pressure reasonably well controlled. - Time Time with patient: 15-25 minutes - CODE STATUS was discussed, patient remains full code. Surrogate decision-maker unchanged. Multiple medical problems were addressed.More than 50% of the time spent coordinating care, discussing management plans with involved caregivers. Management plans discussed with involved personnels. Medical decision making was of moderate complexity. Medications reviewed and adjusted accordingly: Yes
[2016-05-25] MEDS: CEFTRIAXONE 1 GM/D5W RTU 1 GM/50 ML RTUPB IV SCH (22:08)
[2016-05-25] MEDS: ATORVASTATIN CALCIUM 40 MG TABLET PO SCH (22:12)
[2016-05-26] MEDS: LEVALBUTEROL HCL NEB 1.25 MG/3 ML AMPUL NEB SCH ×4 (01:51→19:50)
[2016-05-26] MEDS: IPRATROPIUM BROMIDE 0.02% NEB 0.5 MG/2.5 ML AMPUL NEB SCH ×4 (01:51→19:50)
[2016-05-26] MEDS: METHYLPREDNISOLONE INJ 125 MG/2 ML SDV IV SCH ×3 (02:51→19:02)
[2016-05-26] MEDS: ONDANSETRON HCL INJ/PF 4 MG/2 ML SDV IV PRN (04:06)
[2016-05-26] MEDS ORDERED: LACTULOSE SYRUP 20 GM/30 ML UDCUP PR ONE (04:42)
[2016-05-26] MEDS ORDERED: ONDANSETRON HCL INJ/PF 4 MG/2 ML SDV IV ONE (04:43)
[2016-05-26] MEDS ORDERED: NORMAL SALINE 1000 ML 1,000 ML IV SCH (04:45)
[2016-05-26 05:40] LABS: HEMATOCRIT 36.9 % (37.9-51.0); HEMOGLOBIN 12.5 g/dL (13.5-17.0); HGB HCT DIFFERENCE 0.6; MEAN CORPUSCULAR HEMOGLOBIN 29.4 pg (27.0-33.4); MEAN CORPUSCULAR HGB CONC 33.9 g/dL (32.0-36.0); MEAN CORPUSCULAR VOLUME 87 fl (80-97); RED BLOOD COUNT 4.26 10^6/uL (4.35-5.55); RED CELL DISTRIBUTION WIDTH 13.8 % (11.5-14.0); WHITE BLOOD COUNT 18.1 10^3/uL (4.0-10.5)
[2016-05-26] MEDS: METOCLOPRAMIDE HCL INJ/PF 10 MG/2 ML SDV IV SCH ×3 (05:51→19:02)
[2016-05-26 06:08] LABS: ANION GAP 13 (5-19); BLOOD UREA NITROGEN 91 mg/dL (7-20); CALCIUM 8.1 mg/dL (8.4-10.2); CARBON DIOXIDE 20 mmol/L (22-30); CHLORIDE 110 mmol/L (98-107); GLUCOSE 217 mg/dL (75-110); POTASSIUM 4.1 mmol/L (3.6-5.0); SODIUM 142.7 mmol/L (137-145)
[2016-05-26 06:31] LABS: BASOPHILS % (MANUAL) 0 % (0-2); EOSINOPHILS % (MANUAL) 0 % (0-6); LYMPHOCYTES % (MANUAL) 2 % (13-45); RBC MORPHOLOGY COMMENT NORMO-CYTIC/CHROMIC; TOTAL CELLS COUNTED 100
[2016-05-26] MEDS ORDERED: LACTULOSE SYRUP 20 GM/30 ML UDCUP ONE (06:33)
[2016-05-26] MEDS: AMLODIPINE BESYLATE 5 MG TABLET PO SCH ×2 (09:38→23:28)
[2016-05-26] MEDS: GABAPENTIN 100 MG CAPSULE PO SCH ×2 (09:38→11:56)
[2016-05-26] MEDS: METOPROLOL TARTRATE 100 MG TABLET PO SCH ×2 (09:38→23:30)
[2016-05-26] MEDS ORDERED: HYDRALAZINE HCL INJ/PF 20 MG/1 ML SDV IV PRN (10:00)
[2016-05-26] MEDS: CLOPIDOGREL BISULFATE 75 MG TABLET PO SCH (10:09)
[2016-05-26] MEDS: ASPIRIN 81 MG TABLET, ENT COATED PO SCH (10:09)
[2016-05-26] MEDS: NORMAL SALINE 1000 ML 1,000 ML IV PRN ×2 (10:58→18:30)
[2016-05-26] MEDS: DOCUSATE SODIUM 100 MG CAPSULE PO SCH ×2 (11:27→19:02)
[2016-05-26] MEDS: INSULIN GLARGINE,HUM.REC.ANLOG 1,000 UNIT/10 ML UNIT SUBCUT SCH ×2 (11:31→23:24)
[2016-05-26] MEDS: INSULIN LISPRO 100 UNIT/ML 3 ML VIAL SUBCUT SCH ×2 (11:31→18:42)
[2016-05-26] MEDS: HEPARIN SOD (PORCINE) 5,000 UNIT/ML 1 ML SYRINGE SUBCUT SCH ×2 (11:57→23:24)
[2016-05-26] MEDS: NITROGLYCERIN 5 MG (0.2 MG/HR) PATCH.TD24 TD SCH (11:57)
--- NOTE | 2016-05-26 14:12 | PDOC PROGRESS REPORT ---
Subjective Progress Note for:: 05/26/16 Subjective:: Has had some nausea and vomiting last night and had an NG tube placed. Physical Exam Vital Signs: Temp Pulse Resp BP Pulse Ox 98.9 F 87 17 160/86 H 96 05/26/16 03:33 05/26/16 07:00 05/26/16 03:33 05/26/16 03:33 05/26/16 03:33 Intake & Output 05/25/16 05/26/16 05/27/16 06:59 06:59 06:59 Intake Total 2982 2845 Output Total 1550 4000 Balance 1432 -1155 Weight 120.9 kg 118.2 kg General appearance: PRESENT: no acute distress Eye exam: PRESENT: conjunctiva pink. ABSENT: scleral icterus Mouth exam: PRESENT: moist, tongue midline Neck exam: ABSENT: carotid bruit, JVD, lymphadenopathy, thyromegaly Respiratory exam: PRESENT: clear to auscultation audie. ABSENT: rales, rhonchi, wheezes Cardiovascular exam: PRESENT: RRR. ABSENT: diastolic murmur, rubs, systolic murmur GI/Abdominal exam: PRESENT: normal bowel sounds, soft, tenderness - Mild diffuse tenderness but no guarding or rebound.. ABSENT: distended, guarding, mass, organolmegaly, rebound Extremities exam: ABSENT: calf tenderness, clubbing, pedal edema Neurological exam: PRESENT: alert, awake, oriented to person, oriented to place , oriented to time, oriented to situation, CN II-XII grossly intact. ABSENT: motor sensory deficit Psychiatric exam: PRESENT: appropriate affect Skin exam: PRESENT: dry, intact, warm. ABSENT: cyanosis, rash Results Laboratory Results: 05/26/16 05:02 05/26/16 05:02 05/26/16 05/26/16 05:02 05:02 WBC 18.1 H RBC 4.26 L Hgb 12.5 L Hct 36.9 L MCV 87 MCH 29.4 MCHC 33.9 RDW 13.8 Plt Count 286 Seg Neutrophils % Not Reportable Lymphocytes % Not Reportable Monocytes % Not Reportable Eosinophils % Not Reportable Basophils % Not Reportable Absolute Neutrophils Not Reportable Absolute Lymphocytes Not Reportable Absolute Monocytes Not Reportable Absolute Eosinophils Not Reportable Absolute Basophils Not Reportable Sodium 142.7 Potassium 4.1 Chloride 110 H Carbon Dioxide 20 L Anion Gap 13 BUN 91 H Creatinine 2.50 H Est GFR ( Amer) 32 L Est GFR (Non-Af Amer) 26 L Glucose 217 H Calcium 8.1 L 05/19/16 05/19/16 05/19/16 11:04 11:04 16:00 Creatine Kinase 442 H 313 H CK-MB (CK-2) 2.71 Troponin I 0.530 05/19/16 05/19/16 05/19/16 16:00 19:25 19:25 Creatine Kinase 373 H CK-MB (CK-2) 2.93 2.96 Troponin I 0.882 0.953 05/19/16 05/19/16 05/20/16 23:26 23:26 10:47 Creatine Kinase 364 H CK-MB (CK-2) 2.80 Troponin I 0.837 0.538 05/23/16 05/23/16 05/23/16 03:07 04:29 04:29 Creatine Kinase 220 H CK-MB (CK-2) 5.23 H Troponin I 1.500 1.640 Impressions: Head CT 05/18/16 22:08 IMPRESSION: MILD CHRONIC CHANGES OF ATROPHY AND MICROVASCULAR ISCHEMIA. NO ACUTE PROCESS. Head MRI 05/21/16 00:00 IMPRESSION: MINIMAL MICROVASCULAR ISCHEMIC CHANGE. OTHERWISE NORMAL STUDY. Chest X-Ray 05/22/16 00:00 IMPRESSION: Improving pneumonia. KUB X-Ray 05/26/16 05:25 IMPRESSION: Gastric distention. Tip of the nasogastric tube appears to extend just below the level of the diaphragm into the fundus of the stomach. Assessment & Plan - Diagnosis (1) Pneumonia Qualifiers: Pneumonia type: due to unspecified organism Laterality: right Lung location: unspecified part of lung Qualified Code(s): J18.9 - Pneumonia, unspecified organism Is this a current diagnosis for this admission?: YesPlan: We'll continue with Levaquin and Rocephin. Patient's cultures are negative so far. (2) COPD exacerbation Is this a current diagnosis for this admission?: YesPlan: Continue with steroids and nebulizers. (3) Acute worsening of stage 3 chronic kidney disease Is this a current diagnosis for this admission?: YesPlan: Patient's creatinine has remained elevated. (4) Elevated troponin Is this a current diagnosis for this admission?: YesPlan: This most likely secondary to his chronic renal failure. There is some concern about whether this could represent a pulmonary embolism although it's unlikely given the fact that his echocardiogram earlier showed no evidence for right ventricular strain. (5) Diabetes type 2, uncontrolled Qualifiers: Diabetes mellitus complication status: with unspecified complications Is this a current diagnosis for this admission?: YesPlan: Continue with insulin (6) Leukocytosis Qualifiers: Leukocytosis type: unspecified Qualified Code(s): D72.829 - Elevated white blood cell count, unspecified Is this a current diagnosis for this admission?: YesPlan: Secondary to pneumonia. (7) GERD (gastroesophageal reflux disease) Qualifiers: Esophagitis presence: without esophagitis Qualified Code(s): K21.9 - Gastro-esophageal reflux disease without esophagitis Is this a current diagnosis for this admission?: YesPlan: Patient has had some nausea vomiting this morning. Will add on Reglan as he may have diabetic gastroparesis. Will also check KUB. (8) Hyperlipidemia Qualifiers: Hyperlipidemia type: unspecified Qualified Code(s): E78.5 - Hyperlipidemia, unspecified Is this a current diagnosis for this admission?: YesPlan: Continue with Lipitor. (9) HTN (hypertension) Qualifiers: Hypertension type: essential hypertension Qualified Code(s): I10 - Essential (primary) hypertension Is this a current diagnosis for this admission?: YesPlan: Continue metoprolol and Norvasc. (10) Coronary artery disease Qualifiers: Coronary Disease-Associated Artery/Lesion type: [place] artery [place] vs. transplanted heart: [place] heart Associated angina: without angina Qualified Code(s): I25.10 - Atherosclerotic heart disease of [place] coronary artery without angina pectoris Is this a current diagnosis for this admission?: YesPlan: Continue with aspirin, Plavix, metoprolol, nitroglycerin. - Time Time Spent with patient: 25-34 minutes - Inpatient Certification Medical Necessity: Need Close Monitoring Due to Risk of Patient Decompensation - Plan Summary Plan Summary: Patient continues to have some GI symptoms however gastrology consultation is not available today. We'll place NG continue with IV fluids overnight.
[2016-05-26] MEDS: TAMSULOSIN HCL 0.4 MG CAP.SR.24H PO SCH (19:01)
--- NOTE | 2016-05-26 20:11 | PDOC PROGRESS REPORT ---
Subjective Progress Note for:: 05/26/16 Subjective:: Patient seems to be doing better with gradual improvement. Pt is denying any chest arm or neck discomfort. Patient denying any PND, orthopnea. Patient denied any sustained palpitations, dizziness, syncope, near syncope. Patient denying any fever chills. Patient denying any other significant discomfort. Patient is maintaining sinus rhythm. Patient however still has shortness of breath on minimal exertion. Patient now has a NG tube. His nausea vomiting has significantly improved. Review of systems: Rest review of systems negative. Medications: Medications have been reviewed. Physical Exam Vital Signs: Temp Pulse Resp BP Pulse Ox 97.4 F 88 20 146/76 H 94 05/26/16 15:38 05/26/16 15:38 05/26/16 15:38 05/26/16 15:38 05/26/16 15:38 Intake & Output 05/25/16 05/26/16 05/27/16 06:59 06:59 06:59 Intake Total 2982 2845 0 Output Total 1550 4000 450 Balance 1432 -1155 -450 Weight 120.9 kg 118.2 kg Exam: GENERAL: well-nourished and in no acute distress. Alert and oriented x3 HEAD: Atraumatic, normocephalic. Patient has NG tube drainage. EYES: Pupils equal round and reactive to light, extraocular movements intact, sclera anicteric, conjunctiva are normal. ENT: TMs normal, nares patent, oropharynx clear without exudates. Moist mucous membranes. No oral ulcerations or bleeding gums noted NECK: supple without lymphadenopathy. Trachea is central. No cervical or axillary lymphadenopathy noted. Carotids are 2+, JVD WNL LUNGS: Respiration seems nonlabored, no significant accessory muscle action noted. Breath sounds clear to auscultation bilaterally and equal noted. No wheezes rales or rhonchi noted. No significant dullness noted on percussion. CHEST: Palpation of the chest wall shows no significant chest wall tenderness. No other significant abnormalities noted. HEART: Index DYE FEEDER, No PSH, 1/6 CHERELLE aortic area, 1/6 russo systolic murmur mitral area, no rubs, no gallops. ABDOMEN: Soft, no significant tenderness appreciated, normoactive bowel sounds. No guarding, no rebound. No rigidity noted . No masses appreciated. EXTREMITIES: Pedal pulses are 1-2+, no calf tenderness noted. No clubbing or cyanosis.trace to 1+ pedal edema noted NEUROLOGICAL: Focused neurological exam showed no significant neurologic deficit. Normal speech, no focal weakness appreciated. PSYCH: Normal mood, normal affect. Judgment and insight within normal limits. SKIN: No significant ecchymosis, rash, ulcerations or signs of pruritus noted. MUSCULOSKELETAL EXAM: No significant joint swelling noted. Results Laboratory Results: 05/26/16 05:02 05/26/16 05:02 05/26/16 05/26/16 05:02 05:02 WBC 18.1 H RBC 4.26 L Hgb 12.5 L Hct 36.9 L MCV 87 MCH 29.4 MCHC 33.9 RDW 13.8 Plt Count 286 Seg Neutrophils % Not Reportable Lymphocytes % Not Reportable Monocytes % Not Reportable Eosinophils % Not Reportable Basophils % Not Reportable Absolute Neutrophils Not Reportable Absolute Lymphocytes Not Reportable Absolute Monocytes Not Reportable Absolute Eosinophils Not Reportable Absolute Basophils Not Reportable Sodium 142.7 Potassium 4.1 Chloride 110 H Carbon Dioxide 20 L Anion Gap 13 BUN 91 H Creatinine 2.50 H Est GFR ( Amer) 32 L Est GFR (Non-Af Amer) 26 L Glucose 217 H Calcium 8.1 L 05/19/16 05/19/16 05/19/16 11:04 11:04 16:00 Creatine Kinase 442 H 313 H CK-MB (CK-2) 2.71 Troponin I 0.530 05/19/16 05/19/16 05/19/16 16:00 19:25 19:25 Creatine Kinase 373 H CK-MB (CK-2) 2.93 2.96 Troponin I 0.882 0.953 05/19/16 05/19/16 05/20/16 23:26 23:26 10:47 Creatine Kinase 364 H CK-MB (CK-2) 2.80 Troponin I 0.837 0.538 05/23/16 05/23/16 05/23/16 03:07 04:29 04:29 Creatine Kinase 220 H CK-MB (CK-2) 5.23 H Troponin I 1.500 1.640 Impressions: Head CT 05/18/16 22:08 IMPRESSION: MILD CHRONIC CHANGES OF ATROPHY AND MICROVASCULAR ISCHEMIA. NO ACUTE PROCESS. Head MRI 05/21/16 00:00 IMPRESSION: MINIMAL MICROVASCULAR ISCHEMIC CHANGE. OTHERWISE NORMAL STUDY. Chest X-Ray 05/22/16 00:00 IMPRESSION: Improving pneumonia. KUB X-Ray 05/26/16 05:25 IMPRESSION: Gastric distention. Tip of the nasogastric tube appears to extend just below the level of the diaphragm into the fundus of the stomach. Assessment & Plan - Diagnosis (1) Elevated troponin Is this a current diagnosis for this admission?: Yes (2) Diabetes type 2, uncontrolled Qualifiers: Diabetes mellitus complication status: with unspecified complications Is this a current diagnosis for this admission?: Yes (3) Acute worsening of stage 3 chronic kidney disease Is this a current diagnosis for this admission?: Yes (4) COPD (chronic obstructive pulmonary disease) Qualifiers: COPD type: unspecified COPD Qualified Code(s): J44.9 - Chronic obstructive pulmonary disease, unspecified Is this a current diagnosis for this admission?: Yes (5) Coronary artery disease Qualifiers: Coronary Disease-Associated Artery/Lesion type: [place] artery [place] vs. transplanted heart: [place] heart Associated angina: without angina Qualified Code(s): I25.10 - Atherosclerotic heart disease of [place] coronary artery without angina pectoris Is this a current diagnosis for this admission?: Yes (6) Hyperlipidemia Qualifiers: Hyperlipidemia type: unspecified Qualified Code(s): E78.5 - Hyperlipidemia, unspecified Is this a current diagnosis for this admission?: Yes (7) HTN (hypertension) Qualifiers: Hypertension type: essential hypertension Qualified Code(s): I10 - Essential (primary) hypertension Is this a current diagnosis for this admission?: Yes - Notes Notes: Elevated troponin I: This is in the non-STEMI range. Most likely related to type II myocardial infarction. Patient has uncontrolled diabetes. Recommend maximizing medical therapy. Due to advanced renal failure, in the absence of any chest pain or significant EKG changes, medical management is being recommended. May consider a nuclear stress test prior to discharge or later on as an outpatient especially if there is symptoms of chest pain. Currently on questioning patient denying any chest pain. Diabetes: This is coming under better control. Patient may have diabetic gastroparesis. Acute on chronic kidney disease: This is a major prognostic factor. Continue current management plans as recommended by the newspaper photographer. COPD: Continue current management plans with bronchodilators and steroids as needed. Patient having significant wheezing today. Patient getting bronchodilator therapy. Coronary artery disease: Continue antiplatelet, statin, beta kye therapy. ASTRID inhibitor may be relatively contraindicated. Hyperlipidemia: LDL goal is less than 70. Recommend statin therapy at least intermediate or high dose, of high potency status. Periodic lipid panel and liver panel is indicated. Patient to report any significant muscle discomfort or other side effects. Hypertension: Reasonably well controlled. Blood pressure goal in this patient is 135/85 or less. This was discussed with the patient. Currently blood pressure under reasonable control. - Time Time with patient: 15-25 minutes - CODE STATUS was discussed, patient remains full code. Surrogate decision-maker unchanged. Multiple medical problems were addressed.More than 50% of the time spent coordinating care, discussing management plans with involved caregivers. Management plans discussed with involved personnels. Medical decision making was of moderate complexity.
[2016-05-26] MEDS: INSULIN LISPRO 100 UNIT/ML 3 ML VIAL SUBCUT PRN (23:25)
[2016-05-26] MEDS: CEFTRIAXONE 1 GM/D5W RTU 1 GM/50 ML RTUPB IV SCH (23:27)
[2016-05-26] MEDS: ATORVASTATIN CALCIUM 40 MG TABLET PO SCH (23:29)
[2016-05-26] MEDS: LEVOFLOXACIN 750 MG TABLET PO SCH (23:29)
[2016-05-27] MEDS: METOCLOPRAMIDE HCL INJ/PF 10 MG/2 ML SDV IV SCH ×3 (01:15→18:00)
[2016-05-27] MEDS: METHYLPREDNISOLONE INJ 125 MG/2 ML SDV IV SCH ×3 (01:17→18:00)
[2016-05-27] MEDS: IPRATROPIUM BROMIDE 0.02% NEB 0.5 MG/2.5 ML AMPUL NEB SCH ×4 (02:17→20:09)
[2016-05-27] MEDS: LEVALBUTEROL HCL NEB 1.25 MG/3 ML AMPUL NEB SCH ×4 (02:17→20:09)
[2016-05-27] MEDS: NORMAL SALINE 1000 ML 1,000 ML IV PRN ×3 (04:02→19:44)
[2016-05-27 05:09] LABS: HEMATOCRIT 37.5 % (37.9-51.0); HEMOGLOBIN 12.7 g/dL (13.5-17.0); HGB HCT DIFFERENCE 0.6; MEAN CORPUSCULAR HEMOGLOBIN 29.7 pg (27.0-33.4); MEAN CORPUSCULAR HGB CONC 33.8 g/dL (32.0-36.0); MEAN CORPUSCULAR VOLUME 88 fl (80-97); RED BLOOD COUNT 4.27 10^6/uL (4.35-5.55); RED CELL DISTRIBUTION WIDTH 13.9 % (11.5-14.0)
[2016-05-27 05:17] LABS: ANION GAP 15 (5-19); BLOOD UREA NITROGEN 84 mg/dL (7-20); CALCIUM 7.8 mg/dL (8.4-10.2); CARBON DIOXIDE 22 mmol/L (22-30); CHLORIDE 109 mmol/L (98-107); CREATININE RESULT 2.33 mg/dL (0.52-1.25); GLUCOSE 209 mg/dL (75-110); SODIUM 145.7 mmol/L (137-145)
[2016-05-27 05:22] LABS: BAND NEUTROPHILS % (MANUAL) 1 % (3-5); BASOPHILS % (MANUAL) 0 % (0-2); EOSINOPHILS % (MANUAL) 0 % (0-6); LYMPHOCYTES % (MANUAL) 3 % (13-45); TOTAL CELLS COUNTED 100
[2016-05-27 05:25] LABS: BURR CELLS SLIGHT; OVALOCYTES 1+; POIKILOCYTOSIS 1+
[2016-05-27] MEDS: GABAPENTIN 100 MG CAPSULE PO SCH ×2 (08:34→18:00)
[2016-05-27] MEDS: INSULIN GLARGINE,HUM.REC.ANLOG 1,000 UNIT/10 ML UNIT SUBCUT SCH ×2 (08:34→23:26)
[2016-05-27] MEDS: AMLODIPINE BESYLATE 5 MG TABLET PO SCH ×2 (10:37→21:40)
[2016-05-27] MEDS: ASPIRIN 81 MG TABLET, ENT COATED PO SCH (10:37)
[2016-05-27] MEDS: CLOPIDOGREL BISULFATE 75 MG TABLET PO SCH (10:37)
[2016-05-27] MEDS: METOPROLOL TARTRATE 100 MG TABLET PO SCH ×2 (10:37→21:41)
[2016-05-27] MEDS: NITROGLYCERIN 5 MG (0.2 MG/HR) PATCH.TD24 TD SCH (10:37)
[2016-05-27] MEDS: DOCUSATE SODIUM 100 MG CAPSULE PO SCH ×2 (10:37→18:00)
[2016-05-27] MEDS: HEPARIN SOD (PORCINE) 5,000 UNIT/ML 1 ML SYRINGE SUBCUT SCH ×2 (10:38→21:40)
[2016-05-27] MEDS: INSULIN LISPRO 100 UNIT/ML 3 ML VIAL SUBCUT SCH ×2 (10:47→19:05)
--- NOTE | 2016-05-27 14:54 | PDOC PROGRESS REPORT ---
Subjective Progress Note for:: 05/27/16 Subjective:: He pulled his NG tube out overnight. Denies any nausea vomiting this morning. Physical Exam Vital Signs: Temp Pulse Resp BP Pulse Ox 97.8 F 80 17 165/85 H 94 05/27/16 07:53 05/27/16 07:53 05/27/16 07:53 05/27/16 07:53 05/27/16 07:53 Intake & Output 05/26/16 05/27/16 05/28/16 06:59 06:59 06:59 Intake Total 2845 2975 Output Total 4000 900 Balance -1155 2075 Weight 118.2 kg 114.3 kg General appearance: PRESENT: no acute distress Eye exam: PRESENT: conjunctiva pink. ABSENT: scleral icterus Ear exam: PRESENT: normal external ear exam Mouth exam: PRESENT: moist, tongue midline Neck exam: ABSENT: JVD Respiratory exam: PRESENT: clear to auscultation audie. ABSENT: rales, rhonchi, wheezes Cardiovascular exam: PRESENT: RRR. ABSENT: diastolic murmur, rubs, systolic murmur GI/Abdominal exam: PRESENT: normal bowel sounds, soft. ABSENT: distended, guarding, mass, organolmegaly, rebound, tenderness Extremities exam: ABSENT: calf tenderness, clubbing, pedal edema Neurological exam: PRESENT: alert, awake, oriented to person, oriented to place , oriented to time, oriented to situation, CN II-XII grossly intact. ABSENT: motor sensory deficit Psychiatric exam: PRESENT: appropriate affect Results Laboratory Results: 05/27/16 04:19 05/27/16 04:19 05/27/16 05/27/16 04:19 04:19 WBC 22.0 H RBC 4.27 L Hgb 12.7 L Hct 37.5 L MCV 88 MCH 29.7 MCHC 33.8 RDW 13.9 Plt Count 288 Seg Neutrophils % Not Reportable Lymphocytes % Not Reportable Monocytes % Not Reportable Eosinophils % Not Reportable Basophils % Not Reportable Absolute Neutrophils Not Reportable Absolute Lymphocytes Not Reportable Absolute Monocytes Not Reportable Absolute Eosinophils Not Reportable Absolute Basophils Not Reportable Sodium 145.7 H Potassium 4.0 Chloride 109 H Carbon Dioxide 22 Anion Gap 15 BUN 84 H Creatinine 2.33 H Est GFR ( Amer) 34 L Est GFR (Non-Af Amer) 28 L Glucose 209 H Calcium 7.8 L 05/19/16 05/19/16 05/19/16 11:04 11:04 16:00 Creatine Kinase 442 H 313 H CK-MB (CK-2) 2.71 Troponin I 0.530 05/19/16 05/19/16 05/19/16 16:00 19:25 19:25 Creatine Kinase 373 H CK-MB (CK-2) 2.93 2.96 Troponin I 0.882 0.953 05/19/16 05/19/16 05/20/16 23:26 23:26 10:47 Creatine Kinase 364 H CK-MB (CK-2) 2.80 Troponin I 0.837 0.538 05/23/16 05/23/16 05/23/16 03:07 04:29 04:29 Creatine Kinase 220 H CK-MB (CK-2) 5.23 H Troponin I 1.500 1.640 Impressions: Head CT 05/18/16 22:08 IMPRESSION: MILD CHRONIC CHANGES OF ATROPHY AND MICROVASCULAR ISCHEMIA. NO ACUTE PROCESS. Head MRI 05/21/16 00:00 IMPRESSION: MINIMAL MICROVASCULAR ISCHEMIC CHANGE. OTHERWISE NORMAL STUDY. Chest X-Ray 05/22/16 00:00 IMPRESSION: Improving pneumonia. KUB X-Ray 05/26/16 05:25 IMPRESSION: Gastric distention. Tip of the nasogastric tube appears to extend just below the level of the diaphragm into the fundus of the stomach. Assessment & Plan - Diagnosis (1) Pneumonia Qualifiers: Pneumonia type: due to unspecified organism Laterality: right Lung location: unspecified part of lung Qualified Code(s): J18.9 - Pneumonia, unspecified organism Is this a current diagnosis for this admission?: YesPlan: We'll continue with Levaquin and Rocephin. Patient's cultures are negative so far. (2) COPD exacerbation Is this a current diagnosis for this admission?: YesPlan: Continue with steroids and nebulizers. (3) Acute worsening of stage 3 chronic kidney disease Is this a current diagnosis for this admission?: YesPlan: Patient's creatinine has remained elevated. (4) Elevated troponin Is this a current diagnosis for this admission?: YesPlan: This most likely secondary to his chronic renal failure. There is some concern about whether this could represent a pulmonary embolism although it's unlikely given the fact that his echocardiogram earlier showed no evidence for right ventricular strain. (5) Diabetes type 2, uncontrolled Qualifiers: Diabetes mellitus complication status: with unspecified complications Is this a current diagnosis for this admission?: YesPlan: Continue with insulin (6) Leukocytosis Qualifiers: Leukocytosis type: unspecified Qualified Code(s): D72.829 - Elevated white blood cell count, unspecified Is this a current diagnosis for this admission?: YesPlan: Secondary to pneumonia. (7) GERD (gastroesophageal reflux disease) Qualifiers: Esophagitis presence: without esophagitis Qualified Code(s): K21.9 - Gastro-esophageal reflux disease without esophagitis Is this a current diagnosis for this admission?: YesPlan: Patient has had some nausea vomiting this morning. Continue Reglan as he may have diabetic gastroparesis. (8) Hyperlipidemia Qualifiers: Hyperlipidemia type: unspecified Qualified Code(s): E78.5 - Hyperlipidemia, unspecified Is this a current diagnosis for this admission?: YesPlan: Continue with Lipitor. (9) HTN (hypertension) Qualifiers: Hypertension type: essential hypertension Qualified Code(s): I10 - Essential (primary) hypertension Is this a current diagnosis for this admission?: YesPlan: Continue metoprolol and Norvasc. (10) Coronary artery disease Qualifiers: Coronary Disease-Associated Artery/Lesion type: [place] artery [place] vs. transplanted heart: [place] heart Associated angina: without angina Qualified Code(s): I25.10 - Atherosclerotic heart disease of [place] coronary artery without angina pectoris Is this a current diagnosis for this admission?: YesPlan: Continue with aspirin, Plavix, metoprolol, nitroglycerin. - Time Time Spent with patient: 25-34 minutes - Inpatient Certification Medical Necessity: Need Close Monitoring Due to Risk of Patient Decompensation
--- NOTE | 2016-05-27 15:14 | PDOC PROGRESS REPORT ---
Subjective Progress Note for:: 05/27/16 Subjective:: Patient seems to be doing better with gradual improvement. Pt is denying any chest arm or neck discomfort. Patient denying any PND, orthopnea. Patient denied any sustained palpitations, dizziness, syncope, near syncope. Patient denying any fever chills. Patient denying any other significant discomfort. Patient is maintaining sinus rhythm. Patient however still has shortness of breath on minimal exertion. Patient nausea vomiting has improved. NG tube is now out. Review of systems: Rest review of systems negative. Medications: Medications have been reviewed. Physical Exam Vital Signs: Temp Pulse Resp BP Pulse Ox 97.8 F 80 17 165/85 H 94 05/27/16 07:53 05/27/16 07:53 05/27/16 07:53 05/27/16 07:53 05/27/16 07:53 Intake & Output 05/26/16 05/27/16 05/28/16 06:59 06:59 06:59 Intake Total 2845 2975 Output Total 4000 900 Balance -1155 2075 Weight 118.2 kg 114.3 kg Exam: GENERAL: well-nourished and in no acute distress. Alert and oriented x3 HEAD: Atraumatic, normocephalic. Patient has NG tube drainage. EYES: Pupils equal round and reactive to light, extraocular movements intact, sclera anicteric, conjunctiva are normal. ENT: TMs normal, nares patent, oropharynx clear without exudates. Moist mucous membranes. No oral ulcerations or bleeding gums noted NECK: supple without lymphadenopathy. Trachea is central. No cervical or axillary lymphadenopathy noted. Carotids are 2+, JVD WNL LUNGS: Respiration seems nonlabored, no significant accessory muscle action noted. Breath sounds clear to auscultation bilaterally and equal noted. No wheezes rales or rhonchi noted. No significant dullness noted on percussion. CHEST: Palpation of the chest wall shows no significant chest wall tenderness. No other significant abnormalities noted. 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 ABDOMEN: Soft, no significant tenderness appreciated, normoactive bowel sounds. No guarding, no rebound. No rigidity noted . No masses appreciated. EXTREMITIES: Pedal pulses are 1-2+, no calf tenderness noted. No clubbing or cyanosis.trace to 1+ pedal edema noted NEUROLOGICAL: Focused neurological exam showed no significant neurologic deficit. Normal speech, no focal weakness appreciated. PSYCH: Normal mood, normal affect. Judgment and insight within normal limits. SKIN: No significant ecchymosis, rash, ulcerations or signs of pruritus noted. MUSCULOSKELETAL EXAM: No significant joint swelling noted. Results Laboratory Results: 05/27/16 04:19 05/27/16 04:19 05/27/16 05/27/16 04:19 04:19 WBC 22.0 H RBC 4.27 L Hgb 12.7 L Hct 37.5 L MCV 88 MCH 29.7 MCHC 33.8 RDW 13.9 Plt Count 288 Seg Neutrophils % Not Reportable Lymphocytes % Not Reportable Monocytes % Not Reportable Eosinophils % Not Reportable Basophils % Not Reportable Absolute Neutrophils Not Reportable Absolute Lymphocytes Not Reportable Absolute Monocytes Not Reportable Absolute Eosinophils Not Reportable Absolute Basophils Not Reportable Sodium 145.7 H Potassium 4.0 Chloride 109 H Carbon Dioxide 22 Anion Gap 15 BUN 84 H Creatinine 2.33 H Est GFR ( Amer) 34 L Est GFR (Non-Af Amer) 28 L Glucose 209 H Calcium 7.8 L 05/19/16 05/19/16 05/19/16 11:04 11:04 16:00 Creatine Kinase 442 H 313 H CK-MB (CK-2) 2.71 Troponin I 0.530 05/19/16 05/19/16 05/19/16 16:00 19:25 19:25 Creatine Kinase 373 H CK-MB (CK-2) 2.93 2.96 Troponin I 0.882 0.953 05/19/16 05/19/16 05/20/16 23:26 23:26 10:47 Creatine Kinase 364 H CK-MB (CK-2) 2.80 Troponin I 0.837 0.538 05/23/16 05/23/16 05/23/16 03:07 04:29 04:29 Creatine Kinase 220 H CK-MB (CK-2) 5.23 H Troponin I 1.500 1.640 Impressions: Head CT 05/18/16 22:08 IMPRESSION: MILD CHRONIC CHANGES OF ATROPHY AND MICROVASCULAR ISCHEMIA. NO ACUTE PROCESS. Head MRI 05/21/16 00:00 IMPRESSION: MINIMAL MICROVASCULAR ISCHEMIC CHANGE. OTHERWISE NORMAL STUDY. Chest X-Ray 05/22/16 00:00 IMPRESSION: Improving pneumonia. KUB X-Ray 05/26/16 05:25 IMPRESSION: Gastric distention. Tip of the nasogastric tube appears to extend just below the level of the diaphragm into the fundus of the stomach. Assessment & Plan - Diagnosis (1) Elevated troponin Is this a current diagnosis for this admission?: Yes (2) Diabetes type 2, uncontrolled Qualifiers: Diabetes mellitus complication status: with unspecified complications Is this a current diagnosis for this admission?: Yes (3) Acute worsening of stage 3 chronic kidney disease Is this a current diagnosis for this admission?: Yes (4) COPD (chronic obstructive pulmonary disease) Qualifiers: COPD type: unspecified COPD Qualified Code(s): J44.9 - Chronic obstructive pulmonary disease, unspecified Is this a current diagnosis for this admission?: Yes (5) Coronary artery disease Qualifiers: Coronary Disease-Associated Artery/Lesion type: [place] artery [place] vs. transplanted heart: [place] heart Associated angina: without angina Qualified Code(s): I25.10 - Atherosclerotic heart disease of [place] coronary artery without angina pectoris Is this a current diagnosis for this admission?: Yes (6) Hyperlipidemia Qualifiers: Hyperlipidemia type: unspecified Qualified Code(s): E78.5 - Hyperlipidemia, unspecified Is this a current diagnosis for this admission?: Yes (7) HTN (hypertension) Qualifiers: Hypertension type: essential hypertension Qualified Code(s): I10 - Essential (primary) hypertension Is this a current diagnosis for this admission?: Yes - Notes Notes: Elevated troponin I: This is in the non-STEMI range. Most likely related to type II myocardial infarction. Patient has uncontrolled diabetes. Recommend maximizing medical therapy. Due to advanced renal failure, in the absence of any chest pain or significant EKG changes, medical management is being recommended. May consider a nuclear stress test prior to discharge or later on as an outpatient especially if there is symptoms of chest pain. Currently on questioning patient denying any chest pain. Patient encouraged to report any chest pain. Patient has not ambulated much. He was encouraged to ambulate. Diabetes: This is coming under better control. Continue current management plans Acute on chronic kidney disease: This is a major prognostic factor. Continue current management plans as recommended by the press tender short goods. COPD: Continue current management plans with bronchodilators and steroids as needed. Patient today not noted to have any wheezing. P Coronary artery disease: Continue antiplatelet, statin, beta kye therapy. ASTRID inhibitor may be relatively contraindicated. Hyperlipidemia: LDL goal is less than 70. Recommend statin therapy at least intermediate or high dose, of high potency status. Periodic lipid panel and liver panel is indicated. Patient to report any significant muscle discomfort or other side effects. Hypertension: Reasonably well controlled. Blood pressure goal in this patient is 135/85 or less. This was discussed with the patient. Currently blood pressure under reasonable controlled - Time Time with patient: 15-25 minutes - CODE STATUS was discussed, patient remains full code. Surrogate decision-maker patient's . Multiple medical problems were addressed.More than 50% of the time spent coordinating care, discussing management plans with involved caregivers. Management plans discussed with involved personnels. Medical decision making was of moderate complexity.
[2016-05-27] MEDS: TAMSULOSIN HCL 0.4 MG CAP.SR.24H PO SCH (17:59)
[2016-05-27] MEDS: ATORVASTATIN CALCIUM 40 MG TABLET PO SCH (21:41)
[2016-05-28] MEDS: METOCLOPRAMIDE HCL INJ/PF 10 MG/2 ML SDV IV SCH ×2 (01:03→05:29)
[2016-05-28] MEDS: METHYLPREDNISOLONE INJ 125 MG/2 ML SDV IV SCH ×2 (01:04→11:24)
[2016-05-28] MEDS: IPRATROPIUM BROMIDE 0.02% NEB 0.5 MG/2.5 ML AMPUL NEB SCH ×2 (02:25→09:38)
[2016-05-28] MEDS: LEVALBUTEROL HCL NEB 1.25 MG/3 ML AMPUL NEB SCH ×2 (02:25→09:38)
[2016-05-28] MEDS: NORMAL SALINE 1000 ML 1,000 ML IV PRN (02:46)
[2016-05-28 06:03] LABS: HEMATOCRIT 38.9 % (37.9-51.0); HGB HCT DIFFERENCE 0.1; MEAN CORPUSCULAR HEMOGLOBIN 29.5 pg (27.0-33.4); MEAN CORPUSCULAR HGB CONC 33.4 g/dL (32.0-36.0); MEAN CORPUSCULAR VOLUME 88 fl (80-97); RED BLOOD COUNT 4.41 10^6/uL (4.35-5.55); RED CELL DISTRIBUTION WIDTH 14.1 % (11.5-14.0); WHITE BLOOD COUNT 19.9 10^3/uL (4.0-10.5)
[2016-05-28 06:21] LABS: ANION GAP 11 (5-19); BLOOD UREA NITROGEN 78 mg/dL (7-20); CALCIUM 7.8 mg/dL (8.4-10.2); CARBON DIOXIDE 24 mmol/L (22-30); CHLORIDE 112 mmol/L (98-107); CREATININE RESULT 2.07 mg/dL (0.52-1.25); GLUCOSE 128 mg/dL (75-110); SODIUM 146.7 mmol/L (137-145)
[2016-05-28 06:46] LABS: BASOPHILS % (MANUAL) 0 % (0-2); EOSINOPHILS % (MANUAL) 0 % (0-6); LYMPHOCYTES % (MANUAL) 1 % (13-45); TOTAL CELLS COUNTED 100
[2016-05-28 06:47] LABS: RBC MORPHOLOGY COMMENT NORMO-CYTIC/CHROMIC; TOXIC GRANULATION SLIGHT; TOXIC VACUOLATION PRESENT
[2016-05-28] MEDS: GABAPENTIN 100 MG CAPSULE PO SCH (08:11)
[2016-05-28] MEDS: INSULIN GLARGINE,HUM.REC.ANLOG 1,000 UNIT/10 ML UNIT SUBCUT SCH (08:11)
--- NOTE | 2016-05-28 10:46 | PDOC DISCHARGE SUMMARY ---
General - Admit/Disc Date/PCP Admission Date/Primary Care Provider: 05/19/16 08:05 Discharge Date: 05/28/16 - Discharge Diagnosis (1) Pneumonia Is this a current diagnosis for this admission?: YesSummary: Negative cultures. (2) COPD exacerbation Is this a current diagnosis for this admission?: Yes (3) Acute worsening of stage 3 chronic kidney disease Is this a current diagnosis for this admission?: Yes (4) Elevated troponin Is this a current diagnosis for this admission?: YesSummary: Most likely a type II non-STEMI secondary to his acute illness. (5) Diabetes type 2, uncontrolled Is this a current diagnosis for this admission?: Yes (6) Leukocytosis Is this a current diagnosis for this admission?: Yes (7) GERD (gastroesophageal reflux disease) Is this a current diagnosis for this admission?: Yes (8) Hyperlipidemia Is this a current diagnosis for this admission?: Yes (9) HTN (hypertension) Is this a current diagnosis for this admission?: Yes (10) Coronary artery disease Is this a current diagnosis for this admission?: Yes - Additional Information Resuscitation Status: Full Code Discharge Diet: Cardiac, Diabetic Discharge Activity: Activity As Tolerated Home Medications: Amitriptyline HCl [Elavil 50 mg Tablet] 100 mg PO QHS 05/19/16 Amlodipine Besylate [Norvasc 5 mg Tablet] 5 mg PO QAM 05/19/16 Clopidogrel Bisulfate [Plavix 75 mg Tablet] 75 mg PO QAM 05/19/16 Exenatide Microspheres [Bydureon Pen] 2 mg SQ WE 05/19/16 Gabapentin [Neurontin 100 mg Capsule] 100 mg PO BID@0800,1200 05/19/16 Glimepiride [Amaryl 4 mg Tablet] 4 mg PO Q12 05/19/16 Insulin Aspart [Novolog Flexpen] 10 units SQ BID 05/19/16 Insulin Glargine,Hum.rec.anlog [Lantus Solostar] 50 units SQ BID 05/19/16 Losartan Potassium [Cozaar 100 mg Tablet] 100 mg PO DAILY 05/19/16 Pantoprazole Sodium [Protonix] 40 mg PO ACSUPPER 05/19/16 Simvastatin [Zocor 80 mg Tablet] 80 mg PO QHS 05/19/16 Tamsulosin HCl [Flomax 0.4 mg Cap.sr] 0.4 mg PO PCSUPPER 05/19/16 Aspirin [Ecotrin 81 mg EC Tablet] 81 mg PO DAILY tabec 05/28/16 Metoprolol Tartrate [Lopressor 100 mg Tablet] 100 mg PO Q12 #60 tablet 05/28/16 Nitroglycerin [Nitro-Dur 5 mg (0.2 mg/Hr) Transdermal Patch] 1 each TD DAILY # 30 patch.td24 05/28/16 Prednisone 10 mg PO DAILY #39 tablet 05/28/16 History of Present Illness History of Present Illness: DENNIS SHAW is a 66 year old male with a history of coronary disease, diabetes, COPD who presented with altered mental status. He was here visiting from [place]. He used to live in [place] and they were here to close on a real estate transaction. The patient had some low-grade fevers and chills and was found to have a pneumonia as the cause for his mental status changes. He is admitted for treatment. He also was noted have acute renal failure. Hospital Course Hospital Course: 66-year-old male with multiple medical problems including diabetes, heart disease and COPD who presented with acute no status changes that was felt to be secondary to pneumonia. Patient was treated with broad-spectrum antibiotics and cultures grew out no organisms. The patient did have some problems with shortness of breath and cardiology was consulted. Patient was noted have elevated troponins and was not clear whether this was secondary to his acute on chronic renal failure. It's possible this represented a type II non-STEMI given his acute illness. The patient however has remained chest pain-free. The possibility this representing a pulmonary embolism was considered however he had an echocardiogram done which showed no evidence for right ventricular strain and is felt to be much less likely. Given his elevated creatinine he did not undergo CT angiogram of the lungs. The patient improved pneumonia however did develop some abdominal discomfort with nausea and vomiting felt to most likely represent diabetic gastroparesis. He had an NG tube in for 2 days but this was removed and he was able to a liquid diet without difficulty. He was tolerating by mouth his mental status was back to normal and his chronic renal failure remained stable. Was felt that he was stable to be discharged home. The patient is going to drive back to [place] where he is from. The patient's primary care doctor is Dr. Ríos at [facility] in [facility]. Dr. Ríos's Phone number is [phone] Physical Exam Vital Signs: Temp Pulse Resp BP Pulse Ox 98.5 F 83 18 168/78 H 94 05/28/16 07:30 05/28/16 07:30 05/28/16 07:30 05/28/16 07:30 05/28/16 07:30 Intake & Output 05/27/16 05/28/16 05/29/16 06:59 06:59 06:59 Intake Total 2975 2500 Output Total 900 900 Balance 2075 1600 Weight 114.3 kg 116.4 kg General appearance: PRESENT: no acute distress Eye exam: PRESENT: conjunctiva pink. ABSENT: scleral icterus Mouth exam: PRESENT: moist, tongue midline Neck exam: ABSENT: JVD Respiratory exam: PRESENT: clear to auscultation audie. ABSENT: rales, rhonchi, wheezes Cardiovascular exam: PRESENT: RRR. ABSENT: diastolic murmur, rubs, systolic murmur GI/Abdominal exam: PRESENT: normal bowel sounds, soft. ABSENT: distended, guarding, mass, organolmegaly, rebound, tenderness Extremities exam: ABSENT: calf tenderness, clubbing, full ROM, pedal edema Neurological exam: PRESENT: alert, awake, oriented to person, oriented to place , oriented to time, oriented to situation, CN II-XII grossly intact. ABSENT: motor sensory deficit Psychiatric exam: PRESENT: appropriate affect Skin exam: PRESENT: dry, intact, warm. ABSENT: cyanosis, rash Results Laboratory Results: 05/28/16 05:54 05/28/16 05:54 05/28/16 05/28/16 05:54 05:54 WBC 19.9 H RBC 4.41 Hgb 13.0 L Hct 38.9 MCV 88 MCH 29.5 MCHC 33.4 RDW 14.1 H Plt Count 278 Seg Neutrophils % Not Reportable Lymphocytes % Not Reportable Monocytes % Not Reportable Eosinophils % Not Reportable Basophils % Not Reportable Absolute Neutrophils Not Reportable Absolute Lymphocytes Not Reportable Absolute Monocytes Not Reportable Absolute Eosinophils Not Reportable Absolute Basophils Not Reportable Sodium 146.7 H Potassium 4.0 Chloride 112 H Carbon Dioxide 24 Anion Gap 11 BUN 78 H Creatinine 2.07 H Est GFR ( Amer) 39 L Est GFR (Non-Af Amer) 32 L Glucose 128 H Calcium 7.8 L 05/19/16 05/19/16 05/19/16 11:04 11:04 16:00 Creatine Kinase 442 H 313 H CK-MB (CK-2) 2.71 Troponin I 0.530 05/19/16 05/19/16 05/19/16 16:00 19:25 19:25 Creatine Kinase 373 H CK-MB (CK-2) 2.93 2.96 Troponin I 0.882 0.953 05/19/16 05/19/16 05/20/16 23:26 23:26 10:47 Creatine Kinase 364 H CK-MB (CK-2) 2.80 Troponin I 0.837 0.538 05/23/16 05/23/16 05/23/16 03:07 04:29 04:29 Creatine Kinase 220 H CK-MB (CK-2) 5.23 H Troponin I 1.500 1.640 Impressions: Head CT 05/18/16 22:08 IMPRESSION: MILD CHRONIC CHANGES OF ATROPHY AND MICROVASCULAR ISCHEMIA. NO ACUTE PROCESS. Head MRI 05/21/16 00:00 IMPRESSION: MINIMAL MICROVASCULAR ISCHEMIC CHANGE. OTHERWISE NORMAL STUDY. Chest X-Ray 05/22/16 00:00 IMPRESSION: Improving pneumonia. KUB X-Ray 05/26/16 05:25 IMPRESSION: Gastric distention. Tip of the nasogastric tube appears to extend just below the level of the diaphragm into the fundus of the stomach. Qualifiers PATEINT BEING DISCHARGED WITH ANY OF THE FOLLOWING DIAGNOSIS?: SD SD Pt being discharged on Aspirin therapy?: Yes SD Pt being discharged on Statins?: Yes SD Pt discharged ACEI/ARBS?: Yes Plan Discharge Plan: Patient is discharged home. Patient is to follow-up with his primary care Dr. Ríos in [facility]. Dr. Ríos's phone number is [phone] Time Spent: Greater than 30 Minutes
[2016-05-28] MEDS: METOPROLOL TARTRATE 100 MG TABLET PO SCH (11:07)
[2016-05-28] MEDS: ASPIRIN 81 MG TABLET, ENT COATED PO SCH (11:08)
[2016-05-28] MEDS: CLOPIDOGREL BISULFATE 75 MG TABLET PO SCH (11:08)
[2016-05-28] MEDS: HEPARIN SOD (PORCINE) 5,000 UNIT/ML 1 ML SYRINGE SUBCUT SCH (11:09)
[2016-05-28] MEDS: DOCUSATE SODIUM 100 MG CAPSULE PO SCH (11:09)
[2016-05-28] MEDS: AMLODIPINE BESYLATE 5 MG TABLET PO SCH (11:16)
[2016-05-28] MEDS: NITROGLYCERIN 5 MG (0.2 MG/HR) PATCH.TD24 TD SCH (11:22)
[2016-05-28 11:46] VITALS: BP 161/119
--- NOTE | 2016-05-28 17:15 | PDOC PROGRESS REPORT ---
Subjective Progress Note for:: 05/28/16 Subjective:: Patient was seen earlier in the morning prior to discharge. Patient is being discharged today. He plans to go straight to [place] and follow-up with his physician. Patient was given options to follow up here with me. Overall Patient seems to be doing better. Patient claims to have ambulated. Pt is denying any chest arm or neck discomfort. Patient denying any PND, orthopnea. Patient denied any sustained palpitations, dizziness, syncope, near syncope. Patient denying any fever chills. Patient denying any other significant discomfort. Patient is maintaining sinus rhythm. No further nausea vomiting noted. His dyspnea has significantly improved. Review of systems: Rest review of systems negative. Medications: Medications have been reviewed. Physical Exam Vital Signs: Temp Pulse Resp BP Pulse Ox 98.5 F 83 18 161/119 H 94 05/28/16 11:40 05/28/16 11:40 05/28/16 11:40 05/28/16 11:40 05/28/16 11:40 Intake & Output 05/27/16 05/28/16 05/29/16 06:59 06:59 06:59 Intake Total 2975 2500 Output Total 900 900 Balance 2075 1600 Weight 114.3 kg 116.4 kg Exam: GENERAL: well-nourished and in no acute distress. Alert and oriented x3 HEAD: Atraumatic, normocephalic. Patient has NG tube drainage. EYES: Pupils equal round and reactive to light, extraocular movements intact, sclera anicteric, conjunctiva are normal. ENT: TMs normal, nares patent, oropharynx clear without exudates. Moist mucous membranes. No oral ulcerations or bleeding gums noted NECK: supple without lymphadenopathy. Trachea is central. No cervical or axillary lymphadenopathy noted. Carotids are 2+, JVD WNL LUNGS: Respiration seems nonlabored, no significant accessory muscle action noted. Breath sounds clear to auscultation bilaterally and equal noted. No wheezes rales or rhonchi noted. No significant dullness noted on percussion. CHEST: Palpation of the chest wall shows no significant chest wall tenderness. No other significant abnormalities noted. 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 ABDOMEN: Soft, no significant tenderness appreciated, normoactive bowel sounds. No guarding, no rebound. No rigidity noted . No masses appreciated. EXTREMITIES: Pedal pulses are 1-2+, no calf tenderness noted. No clubbing or cyanosis.trace to 1+ pedal edema noted NEUROLOGICAL: Focused neurological exam showed no significant neurologic deficit. Normal speech, no focal weakness appreciated. PSYCH: Normal mood, normal affect. Judgment and insight within normal limits. SKIN: No significant ecchymosis, rash, ulcerations or signs of pruritus noted. MUSCULOSKELETAL EXAM: No significant joint swelling noted. Results Laboratory Results: 05/28/16 05:54 05/28/16 05:54 05/28/16 05/28/16 05:54 05:54 WBC 19.9 H RBC 4.41 Hgb 13.0 L Hct 38.9 MCV 88 MCH 29.5 MCHC 33.4 RDW 14.1 H Plt Count 278 Seg Neutrophils % Not Reportable Lymphocytes % Not Reportable Monocytes % Not Reportable Eosinophils % Not Reportable Basophils % Not Reportable Absolute Neutrophils Not Reportable Absolute Lymphocytes Not Reportable Absolute Monocytes Not Reportable Absolute Eosinophils Not Reportable Absolute Basophils Not Reportable Sodium 146.7 H Potassium 4.0 Chloride 112 H Carbon Dioxide 24 Anion Gap 11 BUN 78 H Creatinine 2.07 H Est GFR ( Amer) 39 L Est GFR (Non-Af Amer) 32 L Glucose 128 H Calcium 7.8 L 05/19/16 05/19/16 05/19/16 11:04 11:04 16:00 Creatine Kinase 442 H 313 H CK-MB (CK-2) 2.71 Troponin I 0.530 05/19/16 05/19/16 05/19/16 16:00 19:25 19:25 Creatine Kinase 373 H CK-MB (CK-2) 2.93 2.96 Troponin I 0.882 0.953 05/19/16 05/19/16 05/20/16 23:26 23:26 10:47 Creatine Kinase 364 H CK-MB (CK-2) 2.80 Troponin I 0.837 0.538 05/23/16 05/23/16 05/23/16 03:07 04:29 04:29 Creatine Kinase 220 H CK-MB (CK-2) 5.23 H Troponin I 1.500 1.640 Impressions: Head CT 05/18/16 22:08 IMPRESSION: MILD CHRONIC CHANGES OF ATROPHY AND MICROVASCULAR ISCHEMIA. NO ACUTE PROCESS. Head MRI 05/21/16 00:00 IMPRESSION: MINIMAL MICROVASCULAR ISCHEMIC CHANGE. OTHERWISE NORMAL STUDY. Chest X-Ray 05/22/16 00:00 IMPRESSION: Improving pneumonia. KUB X-Ray 05/26/16 05:25 IMPRESSION: Gastric distention. Tip of the nasogastric tube appears to extend just below the level of the diaphragm into the fundus of the stomach. Assessment & Plan - Diagnosis (1) Elevated troponin Is this a current diagnosis for this admission?: Yes (2) Diabetes type 2, uncontrolled Qualifiers: Diabetes mellitus complication status: with unspecified complications Is this a current diagnosis for this admission?: Yes (3) Acute worsening of stage 3 chronic kidney disease Is this a current diagnosis for this admission?: Yes (4) COPD (chronic obstructive pulmonary disease) Qualifiers: COPD type: unspecified COPD Qualified Code(s): J44.9 - Chronic obstructive pulmonary disease, unspecified Is this a current diagnosis for this admission?: Yes (5) Coronary artery disease Qualifiers: Coronary Disease-Associated Artery/Lesion type: [place] artery [place] vs. transplanted heart: [place] heart Associated angina: without angina Qualified Code(s): I25.10 - Atherosclerotic heart disease of [place] coronary artery without angina pectoris Is this a current diagnosis for this admission?: Yes (6) Hyperlipidemia Qualifiers: Hyperlipidemia type: unspecified Qualified Code(s): E78.5 - Hyperlipidemia, unspecified Is this a current diagnosis for this admission?: Yes (7) HTN (hypertension) Qualifiers: Hypertension type: essential hypertension Qualified Code(s): I10 - Essential (primary) hypertension Is this a current diagnosis for this admission?: Yes - Notes Notes: Patient has improved significantly. He is now wanting to be discharged and going home, back to [place]. He was recommended to pursue a stress test in view of positive troponin I. 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 Patient renal functions have been stable. COPD currently stable. CAD stable without any symptoms of chest pain. Blood pressure now well controlled. Patient has been encouraged to gradually increase in activity but I asked to avoid any strenuous activities until seen by his primary care [facility]. Patient was offered follow-up here but she claims that he is going to go straight up to [place]. Patient's medications were reviewed and seems to be satisfactory.. - Time Time with patient: 15-25 minutes - CODE STATUS was discussed, patient remains full code. Surrogate decision-maker unchanged. Multiple medical problems were addressed.More than 50% of the time spent coordinating care, discussing management plans with involved caregivers. Management plans discussed with involved personnels. Medical decision making was of moderate complexity.
== END 2016-05-28 12:03 | disposition home or self-care (01) | DRG 190 ==
LOC: ER 20:39 → EH 05-19 03:44 → UNDOADMOB 05-19 03:44 → EH 05-19 05:57 → OBSVTOIN 05-19 08:05 → 3S 05-19 10:36 → 5 05-23 21:57
PROVIDERS: ADMIT Family Medicine; ATTEND Family Medicine
PROC: 3E0F73Z Introduction of Anti-inflammatory into Respiratory Tract, Via Natural or Artificial Opening (ICD-10-PCS; 2016-05-19)
PROC: 0DH67UZ Insertion of Feeding Device into Stomach, Via Natural or Artificial Opening (ICD-10-PCS; principal; 2016-05-26)
DX: J44.0 Chronic obstructive pulmonary disease with (acute) lower respiratory infection (principal); J18.9 Pneumonia, unspecified organism; I21.4 Non-ST elevation (NSTEMI) myocardial infarction; N17.9 Acute kidney failure, unspecified; J44.1 Chronic obstructive pulmonary disease with (acute) exacerbation; I12.9 Hypertensive chronic kidney disease with stage 1 through stage 4 chronic kidney disease, or unspecified chronic kidney disease; E11.65 Type 2 diabetes mellitus with hyperglycemia; E11.43 Type 2 diabetes mellitus with diabetic autonomic (poly)neuropathy; K31.84 Gastroparesis; K21.9 Gastro-esophageal reflux disease without esophagitis; D72.829 Elevated white blood cell count, unspecified; I69.398 Other sequelae of cerebral infarction; E78.5 Hyperlipidemia, unspecified; E11.22 Type 2 diabetes mellitus with diabetic chronic kidney disease; E11.21 Type 2 diabetes mellitus with diabetic nephropathy; R26.89 Other abnormalities of gait and mobility; N18.3 Chronic kidney disease, stage 3 (moderate); E86.0 Dehydration; E87.5 Hyperkalemia; I25.10 Atherosclerotic heart disease of native coronary artery without angina pectoris; N40.0 Benign prostatic hyperplasia without lower urinary tract symptoms; E66.9 Obesity, unspecified; Z79.4 Long term (current) use of insulin; Z79.84 Long term (current) use of oral hypoglycemic drugs; Z79.52 Long term (current) use of systemic steroids; Z79.899 Other long term (current) drug therapy; Z91.81 History of falling; Z87.891 Personal history of nicotine dependence; Z68.34 Body mass index [BMI] 34.0-34.9, adult; Z95.5 Presence of coronary angioplasty implant and graft; Z90.49 Acquired absence of other specified parts of digestive tract; Z79.02 Long term (current) use of antithrombotics/antiplatelets
CPT/HCPCS: 36415; 70450; 70551; 71010; 74000; 80048; 80053; 80307; 81001; 82550; 82553; 82803; 82962; 83735; 84443; 84484; 85025; 85027; 85610; 85730; 87086; 93005; 93010; 93306; 94640; 96360; 96361; 99285; G0378; G8978-GP; G8979-GP; J0696; J1644; J1815; J1940; J1956; J2405; J2765; J2930; J3490; J7030